=== PATIENT | female | born 2000 | race Caucasian/White ===

== ENCOUNTER 2022-09-03 06:25 | Emergency (ER) | payer BC, SELFPAY ==
[2022-09-03] VITALS (11 sets, daily range): BP systolic 118–139; BP diastolic 72–88; PULSE 54–79; RESP 18; TEMP 36.1; O2SAT 94–100
--- NOTE | 2022-09-03 06:53 | ED.GENADULT ---
HPI - General Adult General Chief complaint: Nausea/Vomiting Stated complaint: vomiting blood Time Seen by Provider: 09/03/22 06:51 History of Present Illness HPI narrative: vomiting blood all night. also pooping blood. reported having hemorrhoids last month. 22-year-old young woman here with concern of vomiting blood. Beginning yesterday evening started to vomit and this has continued to this morning. She is also concerned about blood well stooling. She says she has got some hemorrhoids. Some Dr. ?stuck his thumb up there? and told me I had a couple hemorrhoids. On like she does not have much information. She has however been struggling with constipation. Bowel movements have been painful. No treatments other than was given a cream at some point. Is unaware of any fissure. Is not really having abdominal pain. Later does admit to some low abdominal cramping at discomfort on urination when asked. Otherwise more of a burning sensation in the epigastrium. Has not had a fever. Other information obtained later when questioning if she is fearful that maybe this initial foamy vomiting meant that she was going to ; like in the movies. And then it seemed more dark. Mom arrives later in request support and to try to clarify circumstances. She points out history of chemical dependency issues which upsets matter line. Abdomen does endorse vaping nicotine and has not smoked marijuana she says for 3 days. Noted past medical history otherwise. Related Data Home Medications Medication Instructions Recorded Confirmed gabapentin 400 mg capsule 800 mg PO QPM 07/28/22 07/28/22 lamotrigine 25 mg tablet 25 mg PO DAILY 07/28/22 07/28/22 sertraline 50 mg tablet 50 mg PO DAILY 07/28/22 07/28/22 Previous Rx's Medication Instructions Recorded ciprofloxacin HCl 500 mg tablet 500 mg PO BID 6 days #12 tabs 09/03/22 ondansetron 4 mg disintegrating 4 mg PO Q4-6H PRN nausea and 09/03/22 tablet vomiting #12 tabs Allergies Allergy/AdvReac Type Severity Reaction Status Date / Time oxycodone Allergy Intermediate Verified 07/28/22 13:14 Review of Systems Status of ROS: Reports: 6 or more systems reviewed and unremarkable except as noted in History and below PFSH PFSH Social History Smoking Status: Current every day smoker Do you use any of these nicotine containing products: Vaping Products Second hand tobacco smoke exposure: No How often do you have a drink containing alcohol: 2-3 times a week How many standard drinks containing alcohol do you have on a typical day: 5 or 6 How often do you have six or more drinks on one occasion: Weekly AUDIT-C Alcohol total score: 8 Non-prescribed substance use: marijuana (any form) and crack/cocaine Non-prescribed substance use details: has cd issues. has been to [email or web address]. service: No Exam Narrative: Exam Narrative: Arrived seem Lynnette up with an emesis bag. She is pacing. Flushed. Skin is little clammy. Moving quickly. Seems uncomfortable little anxious. There are numerous line tattoos on her person. Beers to be breathing easily. No stridor. Oropharynx is moist. CV in a regular rate and rhythm. Abdomen is soft mildly uncomfortable in the epigastric area to palpation. No flank pain. Normoactive bowel sounds. well-perfused peripherally. Const: Vital Signs, click to edit/add: Vital Signs - 24 hr 09/03/22 06:31 09/03/22 07:58 09/03/22 08:01 Temperature 97.0 F L Pulse Rate 73 70 Pulse Rate [Left P ulse Oximeter] 79 Respiratory Rate 18 Blood Pressure Blood Pressure [Ri ght Upper Arm] 139/86 Pulse Oximetry 98 97 94 Oxygen Delivery Me thod Room Air 09/03/22 08:02 09/03/22 08:15 09/03/22 08:30 Temperature Pulse Rate 68 62 68 Pulse Rate [Left P ulse Oximeter] Respiratory Rate Blood Pressure 129/72 Blood Pressure [Ri ght Upper Arm] Pulse Oximetry 100 98 99 Oxygen Delivery Me thod 09/03/22 08:31 Temperature Pulse Rate Pulse Rate [Left P ulse Oximeter] Respiratory Rate Blood Pressure 118/88 Blood Pressure [Ri ght Upper Arm] Pulse Oximetry Oxygen Delivery Me thod Documenting provider has reviewed patient's vital signs: yes Course Vital Signs Vital signs: Initial Vital Signs Temperature 97.0 F L 09/03/22 06:31 Temperature Source Temporal Artery Scan 09/03/22 06:31 Pulse Rate 79 09/03/22 06:31 Pulse Rhythm Regular 09/03/22 06:31 Respiratory Rate 18 09/03/22 06:31 Blood Pressure 139/86 09/03/22 06:31 Blood Pressure Mean 103 09/03/22 06:31 Blood Pressure Position Sitting 09/03/22 06:31 Pulse Oximetry 98 09/03/22 06:31 Oxygen Delivery Method Room Air 09/03/22 06:31 Vital Signs Temperature 97.0 F L 09/03/22 06:31 Pulse Rate 79 09/03/22 06:31 Respiratory Rate 18 09/03/22 06:31 Blood Pressure 139/86 09/03/22 06:31 Pulse Oximetry 98 09/03/22 06:31 Oxygen Delivery Method Room Air 09/03/22 06:31 Temperature 97.0 F L 09/03/22 06:31 Pulse Rate 68 09/03/22 08:30 Respiratory Rate 18 09/03/22 06:31 Blood Pressure 118/88 09/03/22 08:31 Pulse Oximetry 99 09/03/22 08:30 Oxygen Delivery Method Room Air 09/03/22 06:31 Medical Decision Making MDM Narrative Medical decision making narrative: Certainly may have a gastritis. I do not see obvious or tanika blood though darkening indicate some mild hematemesis. Ob testing this. Belly is rather free of pain. Return to report urine findings and mom has arrived looking for answers as to what is going on. Into the room seeing Erika crying at this point. She is initially reluctant to the divulge with going on apparently some conflict with her father. I did gastroccult a vomitus. It is slightly positive for blood. Given degree of vomiting though I am not necessarily surprised. I did return to discuss the urinalysis which looks positive. Apparently has had frequent urinary tract infections maybe is recent also has 1 month ago. Does not receive regular primary care. All temp to find old culture results. Able to find reference in record of clinic that within the last 2 diagnosed urinary tract infections did receive Keflex for E coli culture positive. There were intermediate sensitivities also reference but full panel not available for me to read. Does not sound as though she had to change antibiotics though to clear it. Though I have some question whether what appears to be a current cystitis/urinary tract infection has actually been going on for some time. Did receive Rocephin and IV hydration as noted above. Overall is feeling markedly improved. Revisiting the issue of rectal bleeding which I think is likely some rectal passage bleeding either from hemorrhoidal or fissured tissue, she would prefer that not be evaluated today. Is mildly hypokalemic here today but I suspect that this will rebound once vomiting has stopped. Unclear to me if the vomiting is related to this urinary tract infection though I doubt it. I think there few separate issues that of constipation without bowel obstruction, gastritis, cystitis. Treating a little bit more aggressively though with antibiotics as we were possibly heading toward pyelonephritis. Ciprofloxacin on discharge. See patient discharge plan Lab Data Lab results reviewed: Yes I reviewed the patient's lab results Labs: Lab Results 09/03/22 09/03/22 09/03/22 Range/Units 06:45 07:15 07:30 WBC 14.40 H (4.50-11.00) K/uL RBC 5.01 (4.00-5.20) m/uL Hgb 15.2 (12.0-16.0) gm/dL Hct 44.6 (33.0-51.0) % MCV 89 (80-100) fL MCH 30 (26-34) pg MCHC 34 (32-36) gm/dL RDW Coeff of Martha 12.8 (11.5-15.5) % Plt Count 309 (140-440) K/uL Neut % (Auto) 75.5 H (42.0-72.0) % Lymph % (Auto) 17.4 L (20-44) % [place] % (Auto) 6.4 (0.0-11.0) % Eos % (Auto) 0.2 (0.0-7.0) % Baso % (Auto) 0.3 (0.0-3.0) % Neut # (Auto) 10.90 H (1.7-7.0) K/uL Lymph # (Auto) 2.50 (0.90-2.90) K/uL [place] # (Auto) 0.90 (0.00-0.90) K/UL Eos # (Auto) 0.00 (0.00-0.50) K/uL Baso # (Auto) 0.00 (0.00-0.30) K/uL Abs Immat Gran (auto) 0.00 (0.00-0.30) K/uL Imm/Tot Granulo (auto) 0.2 % Sodium 138 (135-149) mmol/L Potassium 3.2 L (3.6-5.1) mmol/L Chloride 102 (96-114) mmol/L Carbon Dioxide 23 (20-32) mmol/L BUN 13 (5-24) mg/dL Creatinine 0.8 (0.5-1.5) mg/dL Estimated GFR 106 ml/min Glucose 105 (60-115) mg/dL Calcium 9.8 (8.4-10.6) mg/dL Total Bilirubin 0.7 (0.1-1.5) mg/dL Direct Bilirubin 0.1 (0.0-0.5) mg/dL AST 34 (12-35) U/L ALT 26 (4-35) U/L Alkaline Phosphatase 72 (40-150) U/L C-Reactive Protein < 0.5 L (0.5-1.0) mg/dL Total Protein 8.4 H (6.0-8.3) g/dL Albumin 4.9 (3.3-5.0) g/dL Lipase 114 (23-300) U/L Urine Color [place] A (Yellow) Urine Appearance Slightly Cloudy A (Clear) Urine pH 6.0 (5.0-8.5) Ur Specific [place] >= 1.030 (1.000-1.030) Urine Protein 2+ A (Negative) Urine Glucose (UA) Negative (Negative) Urine Ketones Trace A (Negative) Urine Blood 3+ A (Negative) Urine Nitrite Negative (Negative) Urine Bilirubin Negative (Negative) Urine Urobilinogen 0.2 (0.2-1.0) Ur Leukocyte Esterase 3+ A (Negative) Urine RBC 10-25 A (0-2) Urine WBC 10-25 A (0-5) Ur Squamous Epith Cells Moderate A (None-Few) Urine Bacteria Few A (None) SARS-CoV-2 (PCR) Negative SARS-CoV-2 (Negative) Influenza Type A (PCR) Negative PCR FLU A (Negative) Influenza Type B (PCR) Negative PCR FLU B (Negative) Discharge Plan Discharge Clinical Impression: Gastritis, BRBPR (bright red blood per rectum), Cystitis, Constipation, Dehydration, Hypokalemia Patient Disposition: Home w/ Parent or Adult Condition: Improved Additional Instructions: Important to stay well hydrated in general. Usually 2-3 L of water intake daily would be a good thing. Especially while you are experiencing a urinary tract infection I would try to avoid sugar/sweetened liquids. To clear up your bowels, consider placement of a suppository overnight to soften things from below. Normally I would recommend an enema and repeating in an hour if no good result. Also drinking a bottle of magnesium citrate repeating next day if no good result. You do have MiraLax available. In the short term you could take 3 doses, each in at least 8 oz of liquid, even by noon. Adjust then this dosing to stool consistency. I would continue intentional stool softening over the course of 2 weeks. You were saying there are laxatives and there are stool softeners. I would consider all the treatments as mentioned above to be more in the category of stool softeners. I agree that it is a good idea to establish a primary care provider. A urine culture will be pending here. If antibiotics we gave were not ideal/correct, you will be receiving a call. You received Rocephin in your IV. Will be sending and ciprofloxacin as an antibiotic and Zofran for nausea. Slow advance of diet over the next 24-36 hours. Maybe soup broths, toast, rice, crackers. Prescriptions: New ciprofloxacin HCl 500 mg tablet 500 mg PO BID 6 Days Qty: 12 0RF ondansetron 4 mg tablet,disintegrating 4 mg PO Q4-6H PRN (Reason: nausea and vomiting) Qty: 12 0RF No Action gabapentin 400 mg capsule 800 mg PO QPM lamotrigine 25 mg tablet 25 mg PO DAILY sertraline 50 mg tablet 50 mg PO DAILY Follow Up/Referrals: Provider,Not a Local [Primary Care Provider] - Stand Alone Forms: [employer] Info Instructions
--- NOTE | 2022-09-03 07:25 | ED.NURSE ---
was vomiting -making herself gag over the sink. some watery, dark red type gastric secretions. denies pain.is anxious and nervous. has been texting father to come to ed for her.
[2022-09-03] MEDS: 0.9 % SODIUM CHLORIDE 1000 ml 1,000 ML IV (07:33)
[2022-09-03] MEDS: ONDANSETRON 2 MG/ML inj 4 MG IVP (07:38)
[2022-09-03 07:44] LABS: Appearance Urine Slightly Cloudy (Clear); Bilirubin Urine Negative (Negative); Blood Urine 3+ (Negative); Color Urine Amber (Yellow); Glucose Urine Negative (Negative); Ketones Urine Trace (Negative); Leukocyte Esterase Urine 3+ (Negative); Nitrite Urine Negative (Negative); Protein Urine 2+ (Negative); Specific Gravity Urine >= 1.030 (1.000-1.030); Urobilinogen Urine 0.2 (0.2-1.0)
[2022-09-03 07:46] LABS: Basophils Percent Auto 0.3 % (0.0-3.0); Eosinophils Percent Auto 0.2 % (0.0-7.0); Hematocrit 44.6 % (33.0-51.0); Hemoglobin* 15.2 gm/dL (12.0-16.0); Immature Granulocytes Pct Auto 0.2 %; Lymphocytes Percent Auto 17.4 % (20-44); Mean Corpuscular HGB Conc 34 gm/dL (32-36); Mean Corpuscular Hemoglobin 30 pg (26-34); Mean Corpuscular Volume 89 fL (80-100); Monocytes Percent Auto 6.4 % (0.0-11.0); Neutrophils Percent Auto 75.5 % (42.0-72.0); Platelet Count* 309 K/uL (140-440); RDW Coefficient of Variation % 12.8 % (11.5-15.5); Red Blood Count 5.01 m/uL (4.00-5.20)
[2022-09-03 07:53] LABS: Slide Review Reflex No
[2022-09-03 07:53] LABS: Bacteria Urine Few; Squamous Epithelial Cell Urine Moderate (None-Few)
[2022-09-03 08:03] LABS: PCR FLU A Negative PCR FLU A (Negative); PCR FLU B Negative PCR FLU B (Negative)
[2022-09-03 08:03] LABS: Albumin* 4.9 g/dL (3.3-5.0); Chloride* 102 mmol/L (96-114); Sodium* 138 mmol/L (135-149)
[2022-09-03 08:04] LABS: Potassium* 3.2 mmol/L (3.6-5.1)
[2022-09-03 08:05] LABS: SARS PCR* Negative SARS-CoV-2 (Negative)
[2022-09-03 08:05] LABS: Creatinine* 0.8 mg/dL (0.5-1.5); Estimated Glomerular Filt Rate 106 ml/min
[2022-09-03 08:06] LABS: Alkaline Phosphatase* 72 U/L (40-150); Aspartate Amino Transferase* 34 U/L (12-35); Bilirubin Direct* 0.1 mg/dL (0.0-0.5); Bilirubin Total* 0.7 mg/dL (0.1-1.5); Blood Urea Nitrogen* 13 mg/dL (5-24); Carbon Dioxide* 23 mmol/L (20-32); Glucose* 105 mg/dL (60-115); Lipase* 114 U/L (23-300); Total Protein* 8.4 g/dL (6.0-8.3)
[2022-09-03 08:07] LABS: Alanine Aminotransferase* 26 U/L (4-35); Calcium* 9.8 mg/dL (8.4-10.6)
[2022-09-03 08:18] LABS: C Reactive Protein* < 0.5 mg/dL (0.5-1.0)
--- NOTE | 2022-09-03 09:10 | ED.NURSE ---
did not want rectal exam per dr guardado. did state that she has constipation and believes the rectal bleeding was from a hemorrhoid. mother was at the bedside. has been texting and is quite animated.
[2022-09-03] MEDS: cefTRIAXone 1 GM in 0.9 % SODIUM CHLORIDE Mini-bag 100 ML IVPB (09:22)
== END 2022-09-03 10:10 | disposition home or self-care (01) ==
PROVIDERS: Emergency Provider Family Medicine
DX: K29.70 Gastritis, unspecified, without bleeding (principal); K62.5 Hemorrhage of anus and rectum; K59.00 Constipation, unspecified; E87.6 Hypokalemia
CPT/HCPCS: 36415; 80048; 80076; 81001; 83690; 85025; 86140; 87086; 87631; 96365; 96375; 99284; J0696; J2405; J7030

== ENCOUNTER 2023-06-09 02:36 | Emergency (ER) | payer BC, SELFPAY ==
[2023-06-09 02:41] VITALS: BP 137/91; PULSE 50; RESP 16; TEMP 36.6; O2SAT 96; BMI 36.9
--- NOTE | 2023-06-09 02:51 | ED.GENADULT ---
HPI - General Adult General Chief complaint: Abdominal Pain Stated complaint: lower abdominal pain Time Seen by Provider: 06/09/23 02:51 History of Present Illness HPI narrative: Pt states she has been having pelvic pain for two weeks. gradually worsening. pt had nexplanon removed 6 weeks ago. Pain is bilateral, rates 8/10, tylenol last was yesterday. seen at urgent care yesterday, urine was negative, was treated for UTI 23-year-old woman presenting to the emergency department with complaint of increasing and sharp pelvic pain over the last couple of weeks. Unknown when last menses; has been a long-time. Has not been spotting. Did have her Nexplanon removed 6 weeks ago. It sounds as though she is wondering whether not might have ovarian cyst. Has not been having dysuria. No fever. Did take Tylenol for pain. Was evaluated at urgent care yesterday with negative testing per her report and reports that was thought to have a urinary tract infection but the results of the urinalysis are not available or were not explained to her nor was an antibiotic ultimately called in. Denies constipation or diarrhea. No fever. She has been feeling like she is looking more bloated lately, like she is she says. Has been having some aching in her low back. Thinking that maybe she was about to have her period, she did stock up on menstrual-related supplies. Related Data Home Medications Medication Instructions Recorded Confirmed gabapentin 400 mg capsule 800 mg PO QPM 07/28/22 07/28/22 lamotrigine 25 mg tablet 25 mg PO DAILY 07/28/22 07/28/22 sertraline 50 mg tablet 50 mg PO DAILY 07/28/22 07/28/22 Previous Rx's Medication Instructions Recorded ciprofloxacin HCl 500 mg tablet 500 mg PO BID 6 days #12 tabs 09/03/22 ondansetron 4 mg disintegrating 4 mg PO Q4-6H PRN nausea and 09/03/22 tablet vomiting #12 tabs Allergies Allergy/AdvReac Type Severity Reaction Status Date / Time oxycodone Allergy Intermediate Verified 07/28/22 13:14 Review of Systems Status of ROS: Reports: 6 or more systems reviewed and unremarkable except as noted in History and below PFSH PFS Social History Smoking Status: Current every day smoker Do you use any of these nicotine containing products: Vaping Products Second hand tobacco smoke exposure: No How often do you have a drink containing alcohol: 2-3 times a week How many standard drinks containing alcohol do you have on a typical day: 5 or 6 How often do you have six or more drinks on one occasion: Weekly AUDIT-C Alcohol total score: 8 Non-prescribed substance use: marijuana (any form) and crack/cocaine Non-prescribed substance use details: has cd issues. has been to [employer]. service: No Exam Narrative: Exam Narrative: Pleasant. Of good energy. Breathing easily. Skin is warm and dry. Numerous tattoos. Heart in lower rate regular rhythm. Lungs are clear. Abdomen with normoactive bowel sounds is soft. No peritoneal signs. She is otherwise though quite tender to palpation right adnexal area and central suprapubic area more so than left but is tender across the pelvis. The somewhat sore also generally across the low back. Not discretely tender in the SI joints. Not hypesthetic in response. Extremities without edema. Const: Vital Signs, click to edit/add: Vital Signs - 24 hr 06/09/23 02:41 06/09/23 05:25 Temperature 97.8 F 98.0 F Pulse Rate [Pulse Oximeter] 50 L 49 L Respiratory Rate 16 18 Blood Pressure [Ri ght Upper Arm] 137/91 H 131/82 Pulse Oximetry 96 97 Oxygen Delivery Me thod Room Air Room Air Documenting provider has reviewed patient's vital signs: yes Course Vital Signs Vital signs: Initial Vital Signs Temperature 97.8 F 06/09/23 02:41 Temperature Source Temporal Artery Scan 06/09/23 02:41 Pulse Rate 50 L 06/09/23 02:41 Pulse Rhythm Regular 06/09/23 02:41 Respiratory Rate 16 06/09/23 02:41 Blood Pressure 137/91 H 06/09/23 02:41 Blood Pressure Mean 106 H 06/09/23 02:41 Blood Pressure Position Sitting 06/09/23 02:41 Pulse Oximetry 96 06/09/23 02:41 Oxygen Delivery Method Room Air 06/09/23 02:41 Vital Signs Temperature 97.8 F 06/09/23 02:41 Pulse Rate 50 L 06/09/23 02:41 Respiratory Rate 16 06/09/23 02:41 Blood Pressure 137/91 H 06/09/23 02:41 Pulse Oximetry 96 06/09/23 02:41 Oxygen Delivery Method Room Air 06/09/23 02:41 Temperature 98.0 F 06/09/23 05:25 Pulse Rate 49 L 06/09/23 05:25 Respiratory Rate 18 06/09/23 05:25 Blood Pressure 131/82 06/09/23 05:25 Pulse Oximetry 97 06/09/23 05:25 Oxygen Delivery Method Room Air 06/09/23 05:25 Medications Administered Medications: Discontinued Medications Generic Name Dose Route Start Last Admin Trade Name Parminder PRN Reason Stop Dose Admin Ibuprofen 600 mg 06/09/23 04:26 06/09/23 04:31 Ibuprofen 200 Mg Tablet PO 06/09/23 04:27 600 mg ONCE ONE Administration Medical Decision Making MDM Narrative Medical decision making narrative: Would rescreen initially with urinalysis. Two weeks seems a little long for premenstrual discomfort but possible and because it has been years since had a period. May certainly have leaking ovarian cyst. Otherwise differential would include constipation. Pain not to the degree I would expect with torsion and of excessively long duration for this. Agreed to check urinalysis again. Last urinalysis here was more convincing than the less suspicious findings here today but culture negative. Would want more significant findings, and symptom, I think for further treatment. Confirmed testing negative. Check labs for further red flags for other imaging. Requested ibuprofen for pain. Improved on reassessment. Labs are otherwise reassuring. Urinalysis with mild findings but without clear symptoms of UTI can consistent more with what she has experienced in the past, I would defer treatment. Would offer ultrasound for further assessment. She would like to stay for this yet. Has managed to sleep. Prior to going to ultrasound she has had sudden sharp pain at the left adnexal area and then has started spotting. Discussed findings with tower truck driver. Unremarkable pelvic ultrasound with good blood flow to both ovaries no cyst. Pending Radiology over-read. Reportedly since began spotting pain has lessened significantly. Expresses some embarrassment that she may have come here for period-related pain. See patient discharge plan for further discussion Lab Data Lab results reviewed: Yes I reviewed the patient's lab results Labs: Lab Results 06/09/23 06/09/23 Range/Units 04:00 04:40 WBC 8.83 (4.50-11.00) K/uL RBC 4.12 (4.00-5.20) m/uL Hgb 13.0 (12.0-16.0) gm/dL Hct 38.1 (33.0-51.0) % MCV 93 (80-100) fL MCH 32 (26-34) pg MCHC 34 (32-36) gm/dL RDW Coeff of Martha 12.6 (11.5-15.5) % Plt Count 252 (140-440) K/uL Neut % (Auto) 61.8 (42.0-72.0) % Lymph % (Auto) 28.2 (20-44) % [place] % (Auto) 8.0 (0.0-11.0) % Eos % (Auto) 1.5 (0.0-7.0) % Baso % (Auto) 0.3 (0.0-3.0) % Neut # (Auto) 5.45 (1.7-7.0) K/uL Lymph # (Auto) 2.49 (0.90-2.90) K/uL [place] # (Auto) 0.70 (0.00-0.90) K/UL Eos # (Auto) 0.13 (0.00-0.50) K/uL Baso # (Auto) 0.03 (0.00-0.30) K/uL Abs Immat Gran (auto) 0.02 (0.00-0.30) K/uL Imm/Tot Granulo (auto) 0.2 % Sodium 136 (135-149) mmol/L Potassium 3.5 L (3.6-5.1) mmol/L Chloride 108 (96-114) mmol/L Carbon Dioxide 24 (20-32) mmol/L Anion Gap 4 L (7-15) mEq/L BUN 17 (5-24) mg/dL Creatinine 0.7 (0.5-1.5) mg/dL Estimated Creat Clear 107.01 Estimated GFR 124 ml/min Glucose 98 (60-115) mg/dL Calcium 9.4 (8.4-10.6) mg/dL C-Reactive Protein < 0.5 L (0.5-1.0) mg/dL HCG, Quant Cancelled Urine Color Yellow (Yellow) Urine Appearance Cloudy A (Clear) Urine pH 6.0 (5.0-8.5) Ur Specific [place] 1.025 (1.000-1.030) Urine Protein Negative (Negative) Urine Glucose (UA) Negative (Negative) Urine Ketones Negative (Negative) Urine Blood 2+ A (Negative) Urine Nitrite Negative (Negative) Urine Bilirubin Negative (Negative) Urine Urobilinogen 0.2 (0.2-1.0) Ur Leukocyte Esterase 1+ A (Negative) Urine RBC 0-2 (0-2) Urine WBC 5-10 A (0-5) Ur Squamous Epith Cells Moderate A (None-Few) Urine Bacteria Few A (None) Urine HCG, Qual Negative (Negative) Lab Acknowledgement Test Added Discharge Plan Discharge Clinical Impression: Pelvic pain Patient Disposition: Home, Self-Care Condition: Improved Additional Instructions: I think your suspicions are likely corrected that your pain might be related to pending menses. Can take up to 800 mg of ibuprofen per dose or up to 1000 mg of acetaminophen per dose. Alternative to the ibuprofen might be up to 500 mg naproxen 2 times daily. Urine culture will be pending here and if you are having symptoms more consistent with urinary tract infection and this culture is significant, would consider treatment at that time. We will contact you if need to discuss further. I will also call you if Radiology has anything more more significant to say about the ultrasound today. Prescriptions: No Action gabapentin 400 mg capsule 800 mg PO QPM lamotrigine 25 mg tablet 25 mg PO DAILY sertraline 50 mg tablet 50 mg PO DAILY ciprofloxacin HCl 500 mg tablet 500 mg PO BID 6 Days Qty: 12 0RF ondansetron 4 mg tablet,disintegrating 4 mg PO Q4-6H PRN (Reason: nausea and vomiting) Qty: 12 0RF Follow Up/Referrals: Provider,Not a Local [Primary Care Provider] - Stand Alone Forms: [employer] Info Instructions
--- NOTE | 2023-06-09 03:02 | PC.NURSE ---
pt states she was prescribed an antibiotic at urgent care yesterday for UTI, pt has not picked up or started Rx yet.
--- OUTSIDE RECORDS SUMMARY | 2023-06-09 03:51 | XMS_ITS | Encounter Summary ---
Author Name Unknown Organization [facility] Address [address] [place] [address] Care Team Providers Care Custodial Worker Name Role Phone Richard Ramachandran APRN, [employer]ER Primary Care Provide r Reason for Visit * Reason Comments Refill Encounter Details Date Type Department Care Team (Late st Contact Info) Description 05/29/2023 Refill [facility] [address] [place] [address] Amelia Britton MD [address] [place] [address] Refill Social History Tobacco Use Types Packs/Day Years Used Date Smoking Tobacco: Former Cigarettes 0.3 1 Smokeless Tobacco: Never Comments:juuls Alcohol Use Standard Drinks/Week Comments Not Currently 0 (1 standard drink = 0.6 oz pur e alcohol) Sex and Gender Information Value Date Recorded Sex Assigned at Not on file Gender Identity Not on file Sexual Orientation Not on file documented as of this encounter Nursing Notes * Tameka Rousseau RN - 05/30/2023 9:49 AM CDT Refill for gabapentin neurontin 400 mg caps authorized per medication protocol. Requested within appropriate time frame. Follow up appointment scheduled 07/02/23. * Sweta Garsia - 05/30/2023 9:18 AM CDT Pt is out of Gabapentin now. Asked if Rx could be sent JAYLON today - to [facility]. documented in this encounter Plan of Treatment Upcoming Encounters Date Type Department Care Team (Late st Contact Info) Description 07/02/2023 8:05 AM CDT Telemedicine [facility] [address] [place] [address] Amelia Britton MD [address] [place] [address] documented as of this encounter Visit Diagnoses Diagnosis ALBERTO (generalized anxiety disorder) ([facility]) Generalized anxiety disorder documented in this encounter Care Teams Custodial Worker Relationship Specialty Start Date End Date Richard Ramachandran APRN, [employer] SEALER [address] [place] [address] PCP - General Nurse Practitioner 05/10/23 documented as of this encounter
--- OUTSIDE RECORDS SUMMARY | 2023-06-09 03:51 | XMS_ITS | Clinical Summary ---
Author Name Unknown Organization [employer] Address [place], [place] [address] Care Team Providers Care Auto Parts Manager Name Role Phone [facility] Primary Care Provider Unavailabl e Clinic, No Pcp Or Unavailable Unavailable Allergies Active Allergy Reactions Criticality Noted Date Comments Bupropion Other - Describe In Comment Field 12/15/2018 Suicidal thoughts. Lamotrigine Hives High 03/04/2015 Oxycodone Nausea And Vomiting 02/10/2015 Medications Medication Sig Dispensed Refills Start Date End Date Status ARIPiprazole (ABILIFY) 10 mg tablet 11/03/2021 Active clindamycin 1% (CLEOCIN-T) 1 % lotion APPLY TOPICALLY TO THE AFFECTED AREA DAILY 10/26/2021 Active gabapentin (NEURONTIN) 400 mg capsule Take 400 mg by mouth three times daily. 10/28/2021 Active sertraline (ZOLOFT) 50 mg tablet 11/03/2021 Active traZODone (DESYREL) 50 mg tablet Take 50 mg by mouth. 07/16/2021 Active tretinoin 0.05 % 0.05 % cream 11/05/2021 Active Encounters Date Type Department Care Team Description 06/08/2023 4:50 PM CDT Office Visit [facility] [place] [address] [place] [phone] Jessie Castillo PA Cramping 06/08/2023 Travel from Last 3 Months Social History Tobacco Use Types Packs/Day Years Used Date Smoking Tobacco: Former Cigarettes Smokeless Tobacco: Never Tobacco Cessation:Counseling Given: Not Answered Sex and Gender Information Value Date Recorded Sex Assigned at Not on file Gender Identity Not on file Sexual Orientation Not on file Obstetrics History Last Filed Vital Signs Vital Sign Reading Time Taken Comments Blood Pressure 121/57 06/08/2023 4:39 PM CDT Pulse 83 06/08/2023 4:39 PM CDT Temperature 36.7 ??C (98.1 ??F) 06/08/2023 4:41 PM CD T Respiratory Rate 24 06/08/2023 4:39 PM CDT Oxygen Saturation 97% 06/08/2023 4:39 PM CDT Inhaled Oxygen Concentration - - Weight 98.9 kg (218 lb) 06/08/2023 4:39 PM CDT Height 162.6 cm (5' 4) 11/11/2021 4:30 PM CDT Body Mass Index 37.42 11/11/2021 4:30 PM CDT Plan of Treatment Health Maintenance Due Date Last Done Comments Tdap 2010 Depression screening for age 12+ 2011 HIV for age 15-65 2014 HPV series for age 9-26 (1 - 3-dose series) 2014 Chlamydia for age 16-24 2015 06/08/2023 BMI (ht and wt on same day) for age 18+ 2017 Hepatitis C screening for ag e 18-79 2017 Tetanus booster 2019 Pap test for age 21-65 2020 COVID-19 vaccine series (2022- season) 2022 07/02/2020, 06/09/2020 Influenza for age 9-49 10/20/2023 Pneumococcal series for age 6-64 Aged Out No longer eligible b ased on patient's age to complete this topic Procedures Procedure Name Priority Date/Time Associated Diagnosis Comments URINALYSIS MICROSCOPIC Routine 06/08/2023 4:49 PM CDT Abdominal pain, generalized TRICHOMONAS, EMMANUEL, AND BACTERIAL VAGINOSIS BY MEGAN Routine 06/08/2023 4:49 PM CDT Abdominal pain, generalized GC CHLAMYDIA TRACH PROBE Routine 06/08/2023 4:49 PM CDT Abdominal pain, generalized URINE Routine 06/08/2023 4:49 PM CDT Abdominal pain, generalized UA W/ SEDIMENT EXAM REFLEXED PER CRITERIA Routine 06/08/2023 4:49 PM CDT Abdominal pain, generalized from Last 3 Months Results * TRICHOMONAS, EMMANUEL, AND BACTERIAL VAGINOSIS BY MEGAN (06/08/2023 4:49 PM CDT) EMMANUEL SPECIES Negative Negative 2:19 AM CDT [facility] EMMANUEL GLABRATA Negative Negative 06/09/2023 2:19 AM CDT [facility] TRICHOMONAS VVA Negative Negative 2:19 AM CDT [facility] BACTERIAL VAGINOSIS Negative Negative 06/09/2023 2:19 AM CDT [facility] Other VAGINAL SWAB / Unknown Non-Blood / Unknown 06/08/2023 4:49 PM CDT 06/08/2023 4:49 PM CDT David Allen MICROBIOLOGY [facility] [address] [place] [address], [place] * URINALYSIS MICROSCOPIC (06/08/2023 4:49 PM CDT) RBC 0-2 0-2, None Seen /HPF 06/08/2023 4:56 PM CDT [facility] WBC 3-5 0-2, 3-5, None Seen /HPF 06/08/2023 4:56 PM CDT [facility] BACTERIA Few None Seen, Rare, Few Bacteria/H PF 06/08/2023 4:56 PM CDT [facility] EPITHELIAL CELLS Few None Seen, Few Epi/HPF 06/08/2023 4:56 PM CDT [facility] Urine URINE SPECIMEN / Unknown Non-Blood / Unknown 06/08/2023 4:49 PM CDT 06/08/2023 4:49 PM CDT David Allen URINE Performing Organization Address [facility]/ZIP Co de Phone Number [facility] [address] [place] [address], [place] * (ABNORMAL) GC & CHLAMYDIA DNA PCR [[id number]] (06/08/2023 4:49 PM CDT) CHLAMYDIA PROBE Negative 3:00 AM CDT [facility] N GONORRHOEAE PROBE Positive(A) 06/09/2023 3:00 AM CDT [facility] Other VAGINAL SWAB / Unknown Non-Blood / Unknown 06/08/2023 4:49 PM CDT 06/08/2023 4:49 PM CDT David Allen MICROBIOLOGY Performing Organization Address City/[facility]/ZIP Co de Phone Number [facility] [address] [place] [address], [place] * (ABNORMAL) UA W/ SEDIMENT EXAM REFLEXED PER CRITERIA (06/08/2023 4:49 PM CDT) COLOR Yellow Yellow Color 06/08/2023 4:56 PM CDT [facility] CLARITY Clear Clear Clarity 06/08/2023 4:56 PM CDT [facility] SPECIFIC GRAVITY,URINE 1.015 1.010, 1.015, 1.020, 1.025 06/08/2023 4:56 PM CDT [facility] PH,URINE 5.5 6.0, 7.0, 8.0, 5.5, 6.5, 7.5, 8.5 06/08/2023 4:56 PM CDT [facility] UROBILINOGEN,Q UALITATIVE Normal Normal EU/dl 06/08/2023 4:56 PM CDT [facility] PROTEIN, URINE Negative Negative mg/dL 06/08/2023 4:56 PM CDT [facility] GLUCOSE, URINE Negative Negative mg/dL 06/08/2023 4:56 PM CDT [facility] KETONES,URINE Negative Negative mg/dL 06/08/2023 4:56 PM CDT [facility] BILIRUBIN,URIN E Negative Negative 06/08/2023 4:56 PM CDT [facility] OCCULT BLOOD,URINE Small(A) Negative 06/08/2023 4:56 PM CDT [facility] NITRITE Negative Negative 06/08/2023 4:56 PM CDT [facility] LEUKOCYTE ESTERASE Trace(A) Negative 06/08/2023 4:56 PM CDT [facility] Urine URINE SPECIMEN / Unknown Non-Blood / Unknown 06/08/2023 4:49 PM CDT 06/08/2023 4:49 PM CDT David Herrera Le PA URINE Performing Organization Address City/[facility]/ZIP Co de Phone Number [facility] [address] [place] [address], * URINE (06/08/2023 4:49 PM CDT) ,URIN E Negative Negative 06/08/2023 4:56 PM CDT [facility] Urine URINE SPECIMEN / Unknown Non-Blood / Unknown 06/08/2023 4:49 PM CDT 06/08/2023 4:49 PM CDT David Herrera Le PA URINE Performing Organization Address City/[facility]/ZIP Co de Phone Number [facility] [address] [place] [address], from Last 3 Months Care Teams Auto Parts Manager Relationship Specialty Start Date End Date [facility] PCP - General 06/08/23 Clinic, No Pcp Or . 06/08/23
--- OUTSIDE RECORDS SUMMARY | 2023-06-09 03:51 | XMS_ITS | Encounter Summary ---
Author Name Unknown Organization [facility] Address [address] [place] [address] Care Team Providers Care Recreation Worker Name Role Phone Richard Ramachandran APRN, CLAY DIGGER Primary Care Provide r Reason for Visit * Reason Comments Dysuria Encounter Details Date Type Department Care Team (Late st Contact Info) Description 05/24/2023 8:00 AM CDT Telemedicine Virtual Urgent Care [address] [place] [address] Nemo Sharma PA-C [address] [place] [id number] Dysuria (Primary Dx) Social History Tobacco Use Types Packs/Day Years [...] on file documented as of this encounter Patient Instructions * Patient Instructions* Nemo Sharma PA-C - 05/24/2023 8:00 AM CDT Please go to a [facility] lab to do the urine tests. We will notify you with the results and next steps. You can start taking the Bactrim. Push fluids, wipe from front to back, urinate after sexual intercourse or sitting in a body of water, urinate when you get the urge, urinate before bed You may take [id number] acetaminophen, ibuprofen, azo as needed for discomfort. Do not take azo for more than 2 days so that you may monitor for improvement of symptoms. If you are not improving in 1-2 days, have new or worsening symptoms, or are not well by the end ofyour treatment course please follow-up for an in-person exam Present to the local urgent care or emergency department if you develop a fever, abdominal pain, back pain, nausea or vomiting, or inability to or difficulty urinating. documented in this encounter Progress Notes * Nemo Sharma PA-C - 05/24/2023 8:00 AM CDT Virtual Urgent Care Visit CC: Chief Complaint Patient presents with Dysuria SUBJECTIVE: Erika Snowden is a 23 y.o. female who I speak with via video for 1-1/2 week history of urinary frequency, dysuria, low back pain. Seems to be worsening. Denies fever and chills, abnormal vaginal discharge, concern for STIs. Review of Systems Complete Review of Systems is negative, unless noted in HPI Allergies Allergen Reactions Lamotrigine Hives Oxycodone Nausea And Vomiting Wellbutrin [Bupropion] Other, see comments Suicidal thoughts. OBJECTIVE: General Appearance: alert, well appearing, and in no apparent distress Skin: no rashes or worrisome lesions Neurologic: normal speech, no facial droop, and alert and oriented x 3 ASSESSMENT: Erika was seen today for dysuria. Diagnoses and all orders for this visit: Dysuria - UA Micro If: Clean Catch; Future - Urine Culture - Collect in Lab; Future - sulfamethoxazole-trimethoprim (BACTRIM DS) 800-160 MG tablet; Take 1 Tablet by mouth two times a day for 3 days. PLAN: Please go to a [facility] lab to do the urine tests. We will notify you with the results and next steps. You can start taking the Bactrim. Push fluids, wipe from front to back, urinate after sexual intercourse or sitting in a body of water, urinate when you get the urge, urinate before bed You may take [id number]-[id number] acetaminophen, ibuprofen, azo as needed for discomfort. Do not take azo for more than 2 days so that you may monitor for improvement of symptoms. If you are not improving in 1-2 days, have new or worsening symptoms, or are not well by the end ofyour treatment course please follow-up for an in-person exam Present to the local urgent care or emergency department if you develop a fever, abdominal pain, back pain, nausea or vomiting, or inability to or difficulty urinating. Patient is agreeable to the treatment plan and any follow up evaluation. Diagnosis explained and options for treatment were reviewed with them, they are engaged in decisionmaking. They expressed understanding and agreed with the plan of care. They had no further questions, comments, or concerns by the end of their visit. Nemo Sharma PA-C 05/24/2023, 1:32 PM This visit was completed as a virtual video visit using a synchronous, two-way, audio-video technology platform. All issues as documented above were discussed and addressed. Due to the nature of an audio-video modality, the only components of a physical exam that could be done are the elements supported by direct visual observation. If it was felt that the patient should be evaluated in clinic davin an emergency room setting, then this was discussed with the patient. Patient identification was verified at the start of the visit, including the patient's name, date of , and physical location in case of emergency. Patient was in their home. Provider was in homeoffice. Patient verbally consented to visit and demonstrated an understanding of the limitations ofthis virtual visit. This note was created using a AI assisted electronic dictation device. There may be unintended grammatical, spelling, or word errors because of this. documented in this encounter Plan of Treatment Upcoming Encounters Date Type Department Care Team (Late st Contact Info) Description 07/02/2023 8:05 AM CDT Telemedicine [facility] [address] [place] [address]. [place] [address] Amelia Britton MD [address] [place] [address] Scheduled Orders Name Type Priority Associated Diagnoses Orde r Schedule UA Micro If: Clean Catch Lab Routine Dysuria Expected: 05/24/2023, Expires: 08/22/2023 Urine Culture - Collect in Lab Microbiology Routine Dysuria Expected: 05/24/2023, Expires: 08/22/2023 documented as of this encounter Visit Diagnoses Diagnosis Dysuria- Primary documented in this encounter Care Teams Recreation Worker Relationship Specialty Start Date End Date Richard Ramachandran, CAD DESIGNER DRAFTER, CLAY DIGGER [address] [place] [address] PCP - General Nurse Practitioner 05/10/23 documented as of this encounter
--- OUTSIDE RECORDS SUMMARY | 2023-06-09 03:51 | XMS_ITS | Encounter Summary ---
Author Name Unknown Organization [facility] Address [address] [place] [address] Care Team Providers Care Cleaner Laboratory Equipment Name Role Phone Richard Ramachandran APRN, STAFF OCCUPATIONAL THERAPIST Primary Care Provide r Reason for Visit * Reason Comments CRAMPS Encounter Details Date Type Department Care Team (Late st Contact Info) Description 06/08/2023 Nurse Triage [facility] [address] [place], [place] [id number] Richard Ramachandran APRN, STAFF OCCUPATIONAL THERAPIST [address] [place] [address] CRAMPS Social History Tobacco Use Types Packs/Day Years [...] as of this encounter Nursing Notes * Suzie Carson RN - 06/08/2023 3:48 PM CDT Pt calling reporting that she is having menstrual cramping without bleeding for the past 2 weeks. Pt had Nexplanon removed 1 month ago. Pain is 6-7/10, occurring most of the day. Denies vomiting, fever. Problem list reviewed as related to this call. Advice given per protocol. Patient verbalizes unde rstanding. Reason for Disposition Menstrual cramps is main concern [1] Pain present > 3 days AND [2] normally menstrual cramps last 1 to 3 days [1] MODERATE (e.g., interferes with normal activities) pelvic pain AND [2] pain comes and goes (cramps) AND [3] present > 24 hours Protocols used: Pelvic Pain - [id number], Abdominal Pain - Menstrual [id number] documented in this encounter Plan of Treatment Upcoming Encounters Date Type Department Care Team (Late st Contact Info) Description 07/02/2023 8:05 AM CDT [facility] [address] [facility] [place] [address] Amelia Britton MD [address] [place] [address] documented as of this encounter Visit Diagnoses Not on filedocumented in this encounter Care Teams Cleaner Laboratory Equipment Relationship Specialty Start Date End Date Richard Ramachandran APRN, STAFF OCCUPATIONAL THERAPIST [address] [place] [address] PCP - General Nurse Practitioner 05/10/23 documented as of this encounter
--- OUTSIDE RECORDS SUMMARY | 2023-06-09 03:51 | XMS_ITS | Clinical Summary ---
Author Name Unknown [facility] Address [address] [place] [address] Care Team Providers Care Restaurant Team Member Name Role Phone Richard Ramachandran APRN, CHIP UNLOADER Primary Care Provide r Source Comments You are receiving this document as you are listed as the primary care provider,follow-up provider, or the patient has been referred to you for consultation.This is in compliance with the Medicare andMedicaid EHR Incentive Program,which states Providers who transition their patient to another setting of careor provider of care or refers their patient to another provider of care shouldprovide summary care record for each transition of care or referral. [facility] Active Allergy Reactions Criticality Noted Date Comments Lamotrigine Hives High 03/04/2015 Oxycodone Nausea And Vomiting 02/10/2015 Bupropion Other, see comments 12/15/2018 Suicidal thoughts. Medications Medication Sig Dispensed Refills Start Date End Date Status ondansetron (ZOFRAN-ODT) 4 MG disintegrating tablet Take 1 Tablet (4 mg) by mouth every 8 hours as needed for Nausea. 10 Tablet 08/04/2022 Active clindamycin (CLEOCIN T) 1 % lotionIndications:A cne, unspecified acne type APPLY TOPICALLY TO THE AFFECTED AREA DAILY 60 mL 3 12/27/2022 Active traZODone (DESYREL) 50 MG tablet Take 0.5-1 Tablets (25-50 mg) by mouth at bedtime as needed for Sleep. 30 Tablet 5 02/20/2023 Active tretinoin (RETIN-A) 0.05 % creamIndications:Ac ne, unspecified acne type APPLY TOPICALLY TO THE AFFECTED AREA EVERY EVENING 45 g 02/27/2023 Active naltrexone (REVIA) 50 MG tablet Take 1 Tablet (50 mg) by mouth daily at bedtime. 30 Tablet 1 03/19/2023 Active ARIPiprazole (ABILIFY) 10 MG tabletIndications:M ild mixed bipolar II disorder (HRC) Take 1 Tablet (10 mg) by mouth daily. 30 Tablet 1 03/19/2023 Active sertraline (ZOLOFT) 50 MG tabletIndications:M ild mixed bipolar II disorder (HRC),ALBERTO (generalized anxiety disorder) (HRC) TAKE 1 TABLET BY MOUTH DAILY You are due for an Appt. Call [phone] to schedule appt. 30 Tablet 05/22/2023 Active gabapentin (NEURONTIN) 400 MG capsuleIndications: ALBERTO (generalized anxiety disorder) (HRC) TAKE 1 CAPSULE(400 MG) BY MOUTH THREE TIMES DAILY 90 Capsule 05/30/2023 Active buPROPion (WELLBUTRIN SR) 100 MG 12 hour release tablet Take 1 Tablet by mouth two times a day. 60 Tablet 1 09/28/2020 09/29/19 21 Discontinued sertraline (ZOLOFT) 50 MG tabletIndications:M ild mixed bipolar II disorder (HRC),ALBERTO (generalized anxiety disorder) (HRC) TAKE 1 TABLET BY MOUTH DAILY 30 Tablet 1 03/19/2023 05/22/19 24 Discontinued gabapentin (NEURONTIN) 400 MG capsuleIndications: ALBERTO (generalized anxiety disorder) (HRC) Take 1 Capsule (400 mg) by mouth three times a day. 90 Capsule 1 03/19/2023 05/30/19 24 Discontinued sulfamethoxazole-tr imethoprim (BACTRIM DS) 800-160 MG tabletIndications:D ysuria Take 1 Tablet by mouth two times a day for 3 days. 6 Tablet 05/24/2023 05/27/19 24 Active Problems Problem Noted Date Diagnosed Date Other specified persistent mood disorders 2022 Borderline personality disorder 07/13/2021 Exposure to sexually transmitted disease (STD) 0 10/06/2019 Dyssomnia 08/13/2019 Exposure to chlamydia 06/08/2019 Polysubstance abuse 02/05/2019 Substance dependence, in remission 11/13/2018 Alcohol use disorder, moderate, in early remissi on 10/29/2018 Mild mixed bipolar II disorder 12/07/2016 Dysmenorrhea 09/29/2015 ALBERTO (generalized anxiety disorder) 03/03/2015 Bipolar 1 disorder 03/03/2015 Moderate episode of recurrent major depressive d isorder 03/03/2015 Allergic rhinitis due to pollen 09/21/2011 Resolved Problems Problem Noted Date Diagnosed Date Resolved Date Intrauterine device surveillance 10/29/2018 02/25/2020 Chlamydia infection 10/29/2018 04/29/19 Compression fracture of L2 lumbar vertebra 07/21/2015 05/06/2018 Anxiety 02/10/2015 05/12/2017 Headache 05/21/2006 05/06/2018 Overview: LW Modifier: sinusitis on X-ray Streptococcal sore throat 04/24/2005 Overview: LW Onset: [id number] ; Pharyngitis Streptococcal Encounters Date Type Department Care Team Description 06/08/2023 Nurse Triage [facility] Nurse Line [address] [place] [address] Richard Ramachandran APRN, CHIP UNLOADER CRAMPS 05/29/2023 Refill [facility] [address] [facility] [place] [address] Amelia Britton MD Refill 05/24/2023 8:00 AM CDT [facility] [address] [place] [address] Nemo Sharma PA-C Dysuria (Primary Dx) 05/22/2023 E-Visit [facility] [address] [place] [address] Mychart, Generic Provider 05/19/2023 Refill [facility] [address] [place] [address] Amelia Britton MD Refill 05/19/2023 Refill [facility] [address] [place] [address] Amelia Britton MD Refill 05/18/2023 9:20 AM CDT Lab Visit [facility] [address] [place] [address] Screening for tuberculosis 05/18/2023 9:00 AM CDT Office Visit [facility] [address] [place] [address] Screening for tuberculosis 05/18/2023 8:40 AM CDT Lab Visit [facility] [address] [place] [address] Mild mixed bipolar II disorder (HRC); Diabetes mellitus screening 05/15/2023 9:30 AM CDT Ancillary Procedure [facility] [address] [place] [address] Billy Galarza MD Acute midline low back pain without sciatica 05/15/2023 9:00 AM CDT Office Visit [facility] [address] [place] [address] Billy Galarza MD Acute midline low back pain without sciatica (Primary Dx) 05/15/2023 Nurse Triage [facility] [id number] [place] [address] Richard Ramachandran, JULIO C, CHIP UNLOADER Back Pain 05/10/2023 10:20 AM CDT Telemedicine [facility] [address] [place] [address] Gloria Alberts, DAIRY ASSOCIATE, CHIP UNLOADER Bowel habit changes (Primary Dx) 04/30/2023 3:15 PM CDT Office Visit [facility]-CUSTOMER SUPPORT ADVISOR [address] [facility], [address] [place] [address] Alpa Mccormick MD Nexplanon removal (Primary Dx) 04/09/2023 1:00 PM MOTOR BUILDER ASSEMBLER Office Visit [facility] [address] [place] [address] Billy Galarza MD Acute dysfunction of right eustachian tube (Primary Dx); Need for tetanus booster 04/04/2023 6:00 PM MOTOR BUILDER ASSEMBLER Office Visit [facility] [address] [place] [address] Khanh Joya, DO No periods (Primary Dx) 04/04/2023 5:50 PM MOTOR BUILDER ASSEMBLER Lab Visit [facility] [address] [place] [address] Diabetes mellitus screening (Primary Dx); No periods; Mild mixed bipolar II disorder (HRC) 03/19/2023 9:05 AM MOTOR BUILDER ASSEMBLER Telemedicine [facility] [address] [facility] [place] [address] Amelia Britton MD Mild mixed bipolar II disorder (HRC) (Primary Dx); ALBERTO (generalized anxiety disorder) (HRC); Alcohol use disorder, moderate, in early remission (HRC) 03/12/2023 Nurse Triage [facility] [address] [place], [place] [address]. [place] [address] Unknown, Physician Medication Problems 03/12/2023 Refill [facility] [address] [facility] [address] Amelia Britton MD Refill from Last 3 Months Immunizations Name Administration Dates Next Due 4vHPV (Gardasil) 03/24/2012,12/06/2011, 2 DTaP 03/23/2004, 0,1999,1999 DTaP/Hib 09/17/2000 Flu Vac Preserv Free (3+yrs) 12/06/2011, 02/14/2011,01/27/2009,2006,03/29/2006,12/26/2004,02/14/2004,0 03/03/2003 H1n1 Miv Sanofi 3+ Yr (Injected) 01/27/2009 HepA Adult (19+ yrs) 03/09/2019 HepA Ped/Adol (1-18 yrs) 09/21/2011,09/13/2009 HepB Adult (Engerix-B, 20+ y rs, 3 dose series) 03/09/2019,02/09/2000,1999,1999 Hib (ActHIB) 1999,1999,1999 IPV (Polio) 03/23/2004, 0,1999,1999 Influenza (Fluzone 0.25, 6-35 mos) 12/05/2012 Influenza IIV4 (Quadrivalent ) 0.5mL (80892) 01/17/2022,10/28/2019,07/22/2015,2013,12/05/2012 Influenza, Unspecified Formulation 01/27,11/29/2006,03/29/2006,2004,02/14/2004,03/03/2003,01/28/2003 MCV4 (Menactra) 09/21/2011 MMR 03/23/2004,09/17/2000 Pfizer Monovalent 12+ Purple Top 07/02/2020,05/20 TDAP (BOOSTRIX) 09/21/2011 Tdap 04/09/2023 Typhoid (Typhim Vi, IM) 07/22/2015 Varicella 09/13/2009,09/17/2000 YF (Yellow Fever) 07/22/2015 Family History Medical History Relation Name Comments Allergies Father Allergies Mother Amblyopia/Strabismus Negative Family History Blindness Negative Family History Cataract Negative Family History Glaucoma Negative Family History Macular Degeneration Negative Family History Retinal Detachment Negative Family History Relation Name Status Comments Father Mother Social History Tobacco Use Types Packs/Day Years Used Date Smoking Tobacco: Former Cigarettes 0.3 1 Smokeless Tobacco: Never Tobacco Cessation:Counseling Given: Not Answered Comments:juuls Alcohol Use Standard Drinks/Week Comments Not Currently 0 (1 standard drink = 0.6 oz pur e alcohol) Sex and Gender Information Value Date Recorded Sex Assigned at Not on file Gender Identity Not on file Sexual Orientation Not on file Last Filed Vital Signs Vital Sign Reading Time Taken Comments Blood Pressure 124/71 05/15/2023 9:03 AM CDT Pulse 54 05/15/2023 9:03 AM CDT Temperature 36.8 ??C (98.3 ??F) 05/15/2023 9:16 AM CD T Respiratory Rate 18 04/04/2023 5:41 PM MOTOR BUILDER ASSEMBLER Oxygen Saturation 99% 04/04/2023 5:41 PM MOTOR BUILDER ASSEMBLER Inhaled Oxygen Concentration - - Weight 100.2 kg (221 lb) 05/15/2023 9:03 AM CDT Height 162.6 cm (5' 4) 05/15/2023 9:03 AM CDT Body Mass Index 37.93 05/15/2023 9:03 AM CDT Plan of Treatment Upcoming Encounters Date Type Department Care Team (Late st Contact Info) Description 07/02/2023 8:05 AM CDT Telemedicine [facility] [address] [place] [address] Amelia Britton MD [address] [place], [place] [phone] Health Maintenance Due Date Last Done Comments Pneumococcal (1 - PCV) 2005 Adult Preventive Visit 06/22/2021 06/22/2020 COVID-19 Vaccine ( season) 2022 07/02/2020, 06/09/2020 Influenza (#1) 2022 01/17/2022, 10/2019, 07/22/2015, Additional history exists Cervical Cancer Screening 06/23/2023 06/22/2020 Chlamydia 01/18/2024 01/17/2023, 10/19, 08/04/2022, Additional history exists DTaP/Tdap/Td (8 - Tdap) 04/09/2033 04/09/19 24, 09/21/2011, 03/23/2004, Additional history exists Zoster/Shingles (1 of 2) 2049 Hib Completed 09/17/2000, 08/20, 1999, Additional history exists IPV (Polio) Completed 03/23/2004, 01/19, 1999, Additional history exists Varicella Completed 09/13/2009, 09/17/2000 MCV4 Aged Out 09/21/2011 No longer eligi ble based on patient's age to complete this topic HPV Vaccine Completed 03/24/2012, 11/18, 09/21/2011 HepA Completed 03/09/2019, 08/0 04/2011, 09/13/2009 HepB Completed 03/09/2019, 01/19, 1999, Additional history exists HIV Screening (Preventive Services) Completed 11/02/2022, 01/17/2022, 09/12/2021, Additional history exists Hep C Screening (Preventive Services) Completed 11/02/2022, 09/12/2021, 01/14/2021, Additional history exists Procedures Procedure Name Priority Date/Time Associated Diagnosis Comments TB QUANTIFERON GOLD PLUS MITOGEN Routine 05/18/2023 9:21 AM CDT Screening for tuberculosis TB QUANTIFERON GOLD PLUS TB2 Routine 05/18/2023 9:21 AM CDT Screening for tuberculosis TB QUANTIFERON GOLD PLUS TB1 Routine 05/18/2023 9:21 AM CDT Screening for tuberculosis TB QUANTIFERON GOLD PLUS NIL Routine 05/18/2023 9:21 AM CDT Screening for tuberculosis TB QUANTIFERON GOLD PLUS Routine 05/18/2023 9:21 AM CDT Screening for tuberculosis HGB A1C Routine 05/18/2023 8:42 AM CDT Diabetes mellitus screening LIPID PANEL & DIRECT LDL (IF NEEDED) Routine 05/18/2023 8:42 AM CDT Mild mixed bipolar II disorder (HRC) XR LUMBAR SPINE AP/LAT VIEWS Routine 05/15/2023 9:37 AM CDT Acute midline low back pain without sciatica UA WITH MICROSCOPIC STAT 04/04/2023 5 :51 PM MOTOR BUILDER ASSEMBLER No periods TEST (URINE) STAT 04/04/2023 5:51 PM MOTOR BUILDER ASSEMBLER No periods CHLAMYDIA & GC (14 YEARS & OLDER) Routine 01/17/2023 4:06 PM MOTOR BUILDER ASSEMBLER Vaginal odor HIV 1/2 AG/AB 4TH GEN Routine 11/02/2022 10:25 AM CDT Screen for STD (sexually transmitted disease) HEPATITIS C ANTIBODY, WITH REFLEX Routine 11/02/2022 10:25 AM CDT Screen for STD (sexually transmitted disease) PAP TEST Routine 06/22/2020 9:26 AM CDT Screening for malignant neoplasm of cervix from Last 3 Months or Most Recently Relevant to Health Maintenance Results * TB QuantiFERON Gold Plus Mitogen (05/18/2023 9:21 AM CDT) MITOGEN >10.000 IU/mL 05/20/2023 1:07 PM CDT [facility] Blood Venipuncture / Unknown 05/18/2023 9:21 AM CDT 05/18/2023 9:48 AM CDT Irwin Mike [facility]_1 Performing Organization Address City/[facility]/ZIP Co de Phone Number [facility] [address] [place] [address] * TB QuantiFERON Gold Plus TB2 (05/18/2023 9:21 AM CDT) TB2 0.150 IU/mL 05/20/2023 1:08 PM CDT [facility] Blood Venipuncture / Unknown 05/18/2023 9:21 AM CDT 05/18/2023 9:48 AM CDT Irwin CHAPMAN LAB_1 Performing Organization Address City/[facility]/ZIP Co de Phone Number [facility] * TB QuantiFERON Gold Plus TB1 (05/18/2023 9:21 AM CDT) TB1 0.186 IU/mL 05/20/2023 1:08 PM CDT [facility] Blood Venipuncture / Unknown 05/18/2023 9:21 AM CDT 05/18/2023 9:48 AM CDT Irwin Mike [facility]_1 Performing Organization Address [facility]/ZIP Co de Phone Number [facility] [address] * TB QuantiFERON Gold Plus NIL (05/18/2023 9:21 AM CDT) [facility] TB QuantiFERON Gold Plus Negative, M. tuberculosis Infection NOT likely Negative, M. tuberculosis Infection NOT likely 05/20/2023 1:09 PM CDT [facility] NIL 0.235 IU/mL 05/20/2023 1:09 PM CDT [facility] TB1-NIL -0.05 IU/mL 05/20/2023 1:09 PM CDT [facility] TB2-NIL -0.09 IU/mL 05/20/2023 1:09 PM CDT [facility] Mitogen-NIL 9.77 IU/mL 05/20/2023 1:09 PM CDT [facility] Blood Venipuncture / Unknown 05/18/2023 9:21 AM CDT 05/18/2023 9:48 AM CDT Narrative [facility] - 05/20/2023 1:09 PM CDT The results of the QuantiFERON TB Gold Plus should be correlated clinically. A single positive test in populations with a low prevalence of latent tuberculosis infection (low pretest probability), should not be taken as definitive evidence of infection. Decisions regarding retesting should be made on a case by case basis. When TB1-NIL or TB2-NIL is low (<1 IU/mL), repeat testing may alternate between positive and negative due to measurement imprecision and not necessarily a change in immune response. For more information refer to: https://www.cdc.gov/mmwr/preview/mmwrhtml/ul4511h4.htm. Irwin Mike [facility] LAB_1 Performing Organization Address [facility]/ZIP Co de Phone Number [facility] [address] * (ABNORMAL) Lipid Panel and Direct LDL (If Needed) (Expected: 1 Year) (05/18/2023 8:42 AM CDT) Pathologist [facility] Cholesterol 186 0 - 199 mg/dL 05/18/2023 10:43 AM [facility] Triglyceride 194(H) <=149 mg/dL 05/18/2023 10:43 AM [facility] HDL Cholesterol 52 >=40 mg/dL 10:43 AM [facility] LDL, Calculated 95 <130 mg/dL 10:43 AM [facility] Non HDL Chol, Calculated 134 <=159 mg/dL 05/18/2023 10:43 AM [facility] Cholesterol/HDL Ratio 3.6 <=5.0 05/18/2023 10:43 AM [facility] Hours Fasting 12.0 8 - 12 Hours 05/18/2023 10:43 AM [facility] Blood Venipuncture / Unknown 05/18/2023 8:42 AM CDT 05/18/2023 8:55 AM CDT Amelia Britton MD LAB_1 Performing Organization Address City/State/[facility] Co de Phone Number [facility] [address] [place] [address] * Hgb A1C (05/18/2023 8:42 AM CDT) Pathologist [facility] Hemoglobin A1C (Rapid) 5.1 <=5.6 % 05/18/2023 10:32 AM [facility] Estimated Average Glucose (Calc) 100 < 117 mg/dL 05/18/2023 10:32 AM [facility] Comment:Estimated average gl ucose (eAG) converts A1c into glucose units (mg/dL) and estimates average glucose over the past approximately 3 months. The eAG reference interval (<117 mg/dL) corresponds to an A1c of <5.7%. Blood Venipuncture / Unknown 05/18/2023 8:42 AM CDT 05/18/2023 8:55 AM CDT Narrative [facility] - 05/18/2023 10:32 AM CDT The test method used for this Hemoglobin A1c result can experience interference from elevated hemoglobin and other hemoglobin variants. In patients with results that do not correlate clinically, contact the lab for further direction. Amelia Britton MD LAB_1 [facility] [address] [place] [address], [facility] * XR Lumbar Spine AP/Lat Views (05/15/2023 9:37 AM CDT) Anatomical Region Laterality Modality Spine, L-Spine Digital Radiogra phy 05/15/2023 9:26 AM CDT Impressions 05/15/2023 9:46 AM CDT COMPARISON: ??10/14/2015 FINDINGS: ??2 views. 5 lumbar vertebrae. Mild compression deformity of the superior L2 endplate anteriorly, with similar body height loss compared to prior, with mild retropulsion. No new fracture. Mild facet arthropathy at L5-S1. Minimal degenerative disc changes. Narrative Procedure Note Tulio Montez MD - 05/15/2023 IMPRESSION COMPARISON: 10/14/2015 FINDINGS: 2 views. 5 lumbar vertebrae. Mild compression deformity of thesuperior L2 endplate anteriorly, with similar body height loss compared toprior, with mild retropulsion. No new fracture. Mild facet arthropathy atL5-S1. Minimal degenerative disc changes. Billy Galarza MD RAD GD * (ABNORMAL) UA with Microscopic: (04/04/2023 5:51 PM MOTOR BUILDER ASSEMBLER) Urine Color Yellow 04/04/2023 6:10 PM MOTOR BUILDER ASSEMBLER [facility] Urine Clarity Clear Clear 04/04/2023 6:10 PM MOTOR BUILDER ASSEMBLER [facility] Specific Matthews, Urine <=1.005(A) 1.005 - 1.030 04/04/2023 6:10 PM MOTOR BUILDER ASSEMBLER [facility] PH Urine 6.5 5.0 - 8.0 04/04/2023 6:10 PM MOTOR BUILDER ASSEMBLER [facility] Protein, Urine Qual (mg/dL) Negative Neg/Trace 04/04/2023 6:10 PM MOTOR BUILDER ASSEMBLER [facility] Glucose Urine Qual (mg/dL) Negative Negative 04/04/2023 6:10 PM MOTOR BUILDER ASSEMBLER [facility] Ketones, Urine (mg/dL) Negative Negative 04/04/2023 6:10 PM MOTOR BUILDER ASSEMBLER [facility] Urobilinogen, Urine (EU/dL) 0.2 <2.0 04/04/2023 6:10 PM MOTOR BUILDER ASSEMBLER [facility] Bilirubin Urine Negative Negative 04/04/2023 6:10 PM MOTOR BUILDER ASSEMBLER [facility] Blood, Urine Trace Neg/Trace 04/04/2023 6:10 PM MOTOR BUILDER ASSEMBLER [facility] Nitrite Urine Negative Negative 04/04/2023 6:10 PM MOTOR BUILDER ASSEMBLER [facility] Leukocyte Est. Negative Negative 04/04/2023 6:10 PM MOTOR BUILDER ASSEMBLER [facility] Red Blood Cells 0-3 0 - 3 /HPF 04/04/2023 6:10 PM MOTOR BUILDER ASSEMBLER [facility] White Blood Cells 0-5 0 - 5 /HPF 04/04/2023 6:10 PM MOTOR BUILDER ASSEMBLER [facility] Bacteria Occasional(A) None Seen /HPF 04/04/2023 6:10 PM MOTOR BUILDER ASSEMBLER [facility] Squamous Epithelial Cells Occasional None Seen, Occasional, Few /HPF 04/04/2023 6:10 PM MOTOR BUILDER ASSEMBLER [facility] Urine Non-blood Collection / Unknown 04/04/2023 5:51 PM MOTOR BUILDER ASSEMBLER 04/04/2023 5:51 PM MOTOR BUILDER ASSEMBLER Khanh Joya DO LAB_1 Performing Organization Address [facility] Co de Phone Number [facility] [address] [place] [address], [facility] * Test (Urine) - Collect in Lab (04/04/2023 5:51 PM MOTOR BUILDER ASSEMBLER) HCG, Urine Negative Negative 04/04/2023 5:56 PM MOTOR BUILDER ASSEMBLER [facility] Urine Non-blood Collection / Unknown 04/04/2023 5:51 PM MOTOR BUILDER ASSEMBLER 04/04/2023 5:51 PM MOTOR BUILDER ASSEMBLER Khanh S Runde DO LAB_1 [facility] [address] [place] [address], [facility] * Chlamydia & GC (14 Years and Older): Vagina (01/17/2023 4:06 PM MOTOR BUILDER ASSEMBLER) Pathologist [facility] Chlamydia Trachomatis STD Not Detected Not Detected 01/18/2023 12:55 PM MOTOR BUILDER ASSEMBLER [facility] N. gonorrhoeae STD Not Detected Not Detected 01/18/2023 12:55 PM MOTOR BUILDER ASSEMBLER [facility] Swab STD SPECIMEN FROM VAGINA / Unknown Non-blood Collection / Unknown 01/17/2023 4:06 PM MOTOR BUILDER ASSEMBLER 01/17/2023 4:21 PM MOTOR BUILDER ASSEMBLER Narrative [facility] - 01/18/2023 12:55 PM MOTOR BUILDER ASSEMBLER Test performed by Sales Office Assistant Mediated Amplification (TMA). Ivania Jones PA-C LAB_1 Performing Organization Address [facility] Co de Phone Number [facility] [address] [address] [phone] * HIV 1/2 Ag/Ab 4th Generation (11/02/2022 10:25 AM CDT) Pathologist [facility] HIV 1/2 Antigen/Antib kaylene (4th generation) Negative (Non Reactive) Negative (Non Reactive) 11/02/2022 7:14 PM CDT [facility] Comment:HIV-1 p24 Antigen an d HIV-1/HIV-2 Antibody not detected Blood Venipuncture / Unknown 11/02/2022 10:25 AM CDT 11/02/2022 10:37 AM CDT Nemo Hendricks PA-C LAB_1 Performing Organization Address City/[facility]/ZIP Co de Phone Number [facility] [address] [place], [place] [address] * Hepatitis C Antibody, with Reflex (11/02/2022 10:25 AM CDT) Pathologist [facility] Hepatitis C Antibody Negative (Non Reactive) Negative (Non Reactive) 11/02/2022 7:14 PM CDT [facility] Comment:Antibodies to HCV no t detected. Does not exclude the possiblity of exposure to HCV. Blood Venipuncture / Unknown 11/02/2022 10:25 AM CDT 11/02/2022 10:37 AM CDT Nemo Hendricks PA-C LAB_1 [facility] [address] [employer] [address] * PAP Test (06/22/2020 9:26 AM CDT) Case Report Pap ? Case: [id number] ? Authorizing Provider: ??Lisette Ivey, ?Collected: ? 06/22/2020 09 ? DAIRY ASSOCIATE, CHIP UNLOADER ? Ordering Location: ? [facility] ?Received: ?06/22/2020 0938 ? Obstetrics and Gynecology ? First Screen: ?Ivania Palacios CT (ASCP) ? Specimen: ?Pap Test, Routine, Cervix/Endocervix ? 06/29/2020 11:[address] [facility] Pap Specimen Adequacy Satisfactory for evaluation, endocervical/mark sformation zone component present. 06/29/2020 11:[address] [facility] Pap Interpretation Negative for intraepithelial lesion or malignancy (NILM). 06/29/2020 11:[address] [facility] Pap Disclaimer The Pap test is a screening test designed to aid in the detection of cervical cancer and its precursor lesions. It is not a diagnostic procedure and should not be used as the sole means of detecting cervical cancer. Both false-positive and false-negative results may occur. 06/29/2020 11:[address] [facility] Gross Description The specimen is received in SurePath fixative and properly labeled. 1 Pap-stained SurePath slide is prepared. 06/29/2020 11:[address] [facility] Embedded Images 11:[address] [facility] Other Specimen Type ENTIRE ENDOCERVIX / Unknown 06/22/2020 9:26 AM CDT 06/22/2020 9:38 AM CDT Comment:LMP: No LMP recorded . (Menstrual status: IUD). Lisette Ivey APRN, [facility] PATHOL [facility] Performing Organization Address City/State/[facility] [place] [address], [facility] [phone] from Last 3 Months or Most Recently Relevant to Health Maintenance Advance Directives * Full Code (Latest Code Status on File) Date Activated Date Inactivated Comments 07/12/2021 10:23 PM 07/16/2021 12:32 PM * Full Code Date Activated Date Inactivated Comments 09/15/2014 8:46 AM 09/15/2014 2:44 PM Care Teams Restaurant Team Member Relationship Specialty Start Date End Date Richard Ramachandran, DAIRY ASSOCIATE, CHIP UNLOADER [address] [place] [address] PCP - General Nurse Practitioner 05/10/23
--- OUTSIDE RECORDS SUMMARY | 2023-06-09 03:51 | XMS_ITS | Encounter Summary ---
Author Name Unknown Organization [facility] Address [address] [place] [address] Care Team Providers Care Linux Systems Analyst Name Role Phone Richard Ramachandran APRN, CANCER PROGRAM CONSULTANT Primary Care Provide r Encounter Details Date Type Department Care Team (Late Contact Info) Description 05/22/2023 E-Visit [facility] [address] [place] [address] [place], [facility] [place] [address] Social History Tobacco Use Types Packs/Day Years [...] as of this encounter Nursing Notes * Jose M Lenz - 05/22/2023 3:31 PM CDT Patient called back and is scheduled on 07/02/23. Vick Ambriz 3:31 PM 05/22/23 documented in this encounter Plan of Treatment Upcoming Encounters Date Type Department Care Team (Late st Contact Info) Description 07/02/2023 8:05 AM CDT Telemedicine [facility] [address] [place] [address] Amelia Britton MD [address] [place] [address] documented as of this encounter Visit Diagnoses Not on filedocumented in this encounter Care Teams Linux Systems Analyst Relationship Specialty Start Date End Date Richard Ramachandran, LEATHER SPONGER, CANCER PROGRAM CONSULTANT [address] [address] [place] [address] PCP - General Nurse Practitioner 05/10/23 documented as of this encounter
--- OUTSIDE RECORDS SUMMARY | 2023-06-09 03:52 | XMS_ITS | Encounter Summary ---
Author Name Unknown Organization [facility] Address [address] [place] [address] Care Team Providers Care Bullet Charging Machine Operator Name Role Phone Richard Ramachandran APRN, KILN DRAWER Primary Care Provide r Reason for Visit * Reason Comments Refill Encounter Details Date Type Department Care Team (Late st Contact Info) Description 05/19/2023 Refill [facility] [address] [facility] [place] [address] Amelia Britton MD [address] [place] [address] Refill Social History Tobacco Use Types Packs/Day [...] as of this encounter Nursing Notes * Yarely Gutierrez - 05/22/2023 1:08 PM CDT Attempted to reach pt to schedule. Voice mail full. Sent message thru my chart to schedule. * Tameka Rousseau RN - 05/22/2023 12:59 PM CDT RN sent 30 day of medication per Refill Protocol. Message inputed on Rx for patient to schedule appointment. Requested Prescriptions Pending Prescriptions Disp Refills sertraline (ZOLOFT) 50 MG tablet [Pharmacy Med Name: SERTRALINE 50MG TABLETS] 30 Tablet 0 Sig: TAKE 1 TABLET BY MOUTH DAILY You are due for an Appt. Call [phone] to schedule appt. Routing to CA Team: Please call patient/family to assist with scheduling follow up appointment. Ok to close encounter once scheduled. documented in this encounter Plan of Treatment Upcoming Encounters Date Type Department Care Team (Late st Contact Info) Description 07/02/2023 8:05 AM CDT [facility] [address] [facility] [place] [address] Amelia Britton MD [address] [place] [address] documented as of this encounter Visit Diagnoses Diagnosis Mild mixed bipolar II disorder (HRC) Other bipolar disorders ALBERTO (generalized anxiety disorder) (HRC) Generalized anxiety disorder documented in this encounter Care Teams Bullet Charging Machine Operator Relationship Specialty Start Date End Date Richard Ramachandran APRN, ADRIANNE [address] [place] [address] PCP - General Nurse Practitioner 05/10/23 documented as of this encounter
--- OUTSIDE RECORDS SUMMARY | 2023-06-09 03:52 | XMS_ITS | Encounter Summary ---
Author Name Unknown Organization [facility] Address [address] [place] [address] Care Team Providers Care Fullerette Name Role Phone No Primary/Referring, Phy Primary Care Provider Unavailable Reason for Referral * Consult/Transfer Care (Routine) - New Request Specialty Diagnoses / Procedures Referred By Estevan almeida Referred To Contact Diagnoses Acute dysfunction of right [place]ustach[place] [address] [place] [address] Referral ID Status Reason Start Date Expiration Date V isits Requested Visits Authorized [id number] New Request 04/09/2023 07/08/2024 1 1 Scheduling Instructions Your clinician has recommended an appointment with [facility] ([facility]) - Head & Neck Surgery. You may call [phone] for help scheduling your appointment. We suggest you call your health insurance company about your coverage and benefits for this appointment. Question Answer Appointment Urgency? Non-Urgent Reason for visit? Decreased hearing, eustachian tube dysfunction, right ear. LIZING SAW OPERATOR * Consult/Transfer Care (Routine) - New Request Specialty Diagnoses / Procedures Referred By Estevan almeida Referred To Contact Diagnoses Acute dysfunction of [place] [address] [place] [address] Referral ID Status Reason Start Date Expiration Date V isits Requested Visits Authorized [id number] New Request 04/09/2023 07/08/2024 1 1 Scheduling Instructions Your clinician has recommended an appointment with [facility]. You may call [phone] to schedule your appointment. We suggest you call your health insurance company about your coverage and benefits for this appointment. Question Answer Appointment Urgency? Non-Urgent Reason for visit? Decreased hearing, eustachian tube dysfunction, right ear. LIZING SAW OPERATOR Reason for Visit * Reason Comments Ear Pain ear wax cleaningdid inform one time visit; Encounter Details Date Type Department Care Team (Late st Contact Info) Description 04/09/2023 1:00 PM EQUALIZING SAW OPERATOR Office Visit [facility] [address] [place], [place] [phone] [place] [id number] [place] [phone] Acute dysfunction of right eustachian tube (Primary Dx); Need for tetanus booster Social History Tobacco Use Types Packs/Day Years [...] on file documented as of this encounter Last Filed Vital Signs Vital Sign Reading Time Taken Comments Blood Pressure 129/69 04/09/2023 1:02 PM EQUALIZING SAW OPERATOR Pulse 78 04/09/2023 1:02 PM EQUALIZING SAW OPERATOR Temperature 36.6 ??C (97.9 ??F) 04/09/2023 1:23 PM CS T Respiratory Rate - - Oxygen Saturation - - Inhaled Oxygen Concentration - - Weight 99.8 kg (220 lb) 04/09/2023 1:02 PM EQUALIZING SAW OPERATOR Height 162.6 cm (5' 4) 04/09/2023 1:02 PM EQUALIZING SAW OPERATOR Body Mass Index 37.76 04/09/2023 1:02 PM EQUALIZING SAW OPERATOR documented in this encounter Patient Instructions * Attachments The following attachments cannot be sent through Care Everywhere. * Eustachian Tube Problems (Tajik) documented in this encounter Progress Notes * Billy Galarza MD - 04/09/2023 1:00 PM CST SUBJECTIVE: This 23-year-old female notes 3 week history right ear plugging and muffled hearing. Symptoms came on gradually and not suddenly. Hearing seems to be mildly diminished subjectively on that side. Medications: Current Outpatient Medications Medication Sig Dispense Refill ARIPiprazole (ABILIFY) 10 MG tablet Take 1 Tablet (10 mg) by mouth daily. 30 Tablet 1 ciprofloxacin (CIPRO) 500 MG tablet Take 1 Tablet (500 mg) by mouth two times a day. clindamycin (CLEOCIN T) 1 % lotion APPLY TOPICALLY TO THE AFFECTED AREA DAILY 60 mL 3 erythromycin 5 MG/GM (0.5%) eye ointment APPLY 1/4 INCH RIBBON BEFORE BEDTIME INTO BOTH EYES FOR 2 WEEKS etonogestrel (NEXPLANON) 68 MG implant Inject 68 mg subcutaneously .. 1 Each 0 fluconazole (DIFLUCAN) 150 MG tablet Take 1 Tablet (150 mg) by mouth daily. gabapentin (NEURONTIN) 400 MG capsule Take 1 Capsule (400 mg) by mouth three times a day. 90 Capsule 1 NAC 600 MG capsule Take 2 Capsules (1,200 mg) by mouth two times a day. naltrexone (REVIA) 50 MG tablet Take 1 Tablet (50 mg) by mouth daily at bedtime. 30 Tablet 1 ondansetron (ZOFRAN-ODT) 4 MG disintegrating tablet Take 1 Tablet (4 mg) by mouth every 8 hours as needed for Nausea. 10 Tablet 0 sertraline (ZOLOFT) 50 MG tablet TAKE 1 TABLET BY MOUTH DAILY 30 Tablet 1 traZODone (DESYREL) 50 MG tablet Take 0.5-1 Tablets (25-50 mg) by mouth at bedtime as needed for Sleep. 30 Tablet 5 tretinoin (RETIN-A) 0.05 % cream APPLY TOPICALLY TO THE AFFECTED AREA EVERY EVENING 45 g 0 No current facility-administered medications for this visit. Adverse Drug Reactions: Lamotrigine, Oxycodone, and Wellbutrin [bupropion] Social History: Social History Socioeconomic History Marital status: Single Spouse name: Not on file Number of children: Not on file Years of education: Not on file Highest education level: Not on file Occupational History Occupation: [employer] Tobacco Use Smoking status: Former Current packs/day: 0.25 Average packs/day: 0.3 packs/day for 1 year (0.3 ttl pk-yrs) Types: Cigarettes Smokeless tobacco: Never Tobacco comments: juuls Vaping Use Vaping status: Every Day Substances: Flavoring, Nicotine-salt Substance and Sexual Activity Alcohol use: Not Currently Drug use: Not Currently Types: Marijuana Sexual activity: Yes Partners: Male control/protection: Implant Other Topics Concern Bike Helmet Not Asked City Water Not Asked Exercise Not Asked Guns in home Not Asked Seat Belt Not Asked Special Diet Not Asked Weight Concern Not Asked Social History Narrative Not on file Social Determinants of Health Financial Resource Strain: Not on file Food Insecurity: Not on file Transportation Needs: Not on file Intimate Partner Violence: Not on file Housing Stability: Not on file OBJECTIVE: Vital Signs: BP 129/69 (BP Location: Left Arm, BP Cuff Size: Large) Pulse 78 Temp 97.9 ??F (36.6 ??C) (Oral) Ht 5' 4 (1.626 m) Wt 220 lb (99.8 kg) BMI 37.76 kg/m?? General: Alert. Appears well. Eyes: Full EOM, PERRLA, without lesions or injection. Ears: Canals and TMs normal. Neck: Supple, without masses, lymphadenopathy, or tenderness. No thyromegaly or nodules. Throat: Moist mucous membranes without lesions, erythema, or exudate. ASSESSMENT: ICD-10-CM 1. Acute dysfunction of right eustachian tube H69.91 Audiology Consult-Adult/Peds Otolaryngology Consult Adult/Peds 2. Need for tetanus booster Z23 Tdap PLAN: Recommend time and observation at this point. Handout given with respect to diagnosis. Referrals were placed to audiology and ENT so that if symptoms persist here in the next few weeks without any improvement or change she will follow-up there for recheck and further evaluation. Tdap given today. Resume routine follow-up with PCP. LIZING SAW OPERATOR documented in this encounter Plan of Treatment Upcoming Encounters Date Type Department Care Team (Late st Contact Info) Description 07/02/2023 8:05 AM CDT Telemedicine [facility] [address] [place] [address] Amelia Britton MD [address] [place] [address] Scheduled Referrals Name Type Priority Associated Diagnoses Orde r Schedule Audiology Consult-Adult/Peds Referral Routine Acute dysfunction of right eustachian tube Ordered: 04/09/2023 Otolaryngology Consult Adult/Peds Referral Routine Acute dysfunction of right eustachian tube Ordered: 04/09/2023 documented as of this encounter Visit Diagnoses Diagnosis Acute dysfunction of right eustachian tube- Primary Need for tetanus booster Need for prophylactic vaccination with tetanus toxoid alone documented in this encounter Care Teams Fullerette Relationship Specialty Start Date End Date No Primary/Referring, Phy PCP - General 07/12/21 4 documented as of this encounter
--- OUTSIDE RECORDS SUMMARY | 2023-06-09 03:52 | XMS_ITS | Encounter Summary ---
Author Name Unknown Organization [facility] Address [address] [address] Care Team Providers Care Distribution Technician Name Role Phone No Primary/Referring, Phy Primary Care Provider Unavailable Reason for Visit * Reason Comments Nexplanon Removal Encounter Details Date Type Department Care Team (Late st Contact Info) Description 04/30/2023 3:15 PM CDT [facility] Visit [facility] [address] [address] [place] [address] [address] Nexplanon removal (Primary Dx) Social History Tobacco Use Types [...] Sign Reading Time Taken Comments Blood Pressure 129/73 04/30/2023 3:22 PM CDT Pulse 60 04/30/2023 3:22 PM CDT Temperature - - Respiratory Rate - - Oxygen Saturation - - Inhaled Oxygen Concentration - - Weight 100.2 kg (221 lb) 04/30/2023 3:22 PM CDT Height - - Body Mass Index 37.93 04/09/2023 1:02 PM ROLL EDGE MACHINE OPERATOR documented in this encounter Progress Notes * Alpa Young MD - 04/30/2023 3:15 PM CDT [facility] GREENHOUSE TECHNICIAN Procedure Note Patient presents today for Nexplanon removal. She had the device placed on 09/2022. Procedure: Written consent was obtained for removal of contraceptive implant. Risks discussed included bleeding infection damage to surrounding structures, inability to remove necessitating surgical removal. Patient agrees. Implant was palpated in the left upper inner arm. Area was cleansed with betadine. Less than 3 mL of lidocaine 1% plain was infiltrated in to the subcutaneous area and 1 cm along the implant. A 2-3 mm puncture wound was created with an 11 blade scalpel over the distal end ofthe implant. The implant was identified and grasp with hemostat. It was removed in full and noted to be intact. It was discarded. The puncture wound was covered with steri strip and wraped with compression dressing. Patient tolerated the procedure well. EBL was 10 mL. No complications. Reviewed returning to clinic for fevers, redness or pain at incision, any concerns. Reviewed need for backup contraception. Plans for contraception: condoms. Dr. Jace Young Pg [phone] 04/30/2023 documented in this encounter Plan of Treatment Upcoming Encounters Date Type Department Care Team (Late st Contact Info) Description 07/02/2023 8:05 AM CDT Telemedicine [facility] [address] [place] [address] Amelia Britton MD [address] [place] [address] documented as of this encounter Visit Diagnoses Diagnosis Nexplanon removal- Primary Surveillance of previously prescribed implantable subdermal contraceptive documented in this encounter Care Teams Distribution Technician Relationship Specialty Start Date End Date No Primary/Referring, Phy PCP - General 07/12/21 4 documented as of this encounter
--- OUTSIDE RECORDS SUMMARY | 2023-06-09 03:52 | XMS_ITS | Encounter Summary ---
Author Name Unknown Organization [facility] Address [address] [place] [address] Care Team Providers Care Critical Systems Technician Name Role Phone Richard Ramachandran APRN, LINOTYPE OPERATOR Primary Care Provide r Encounter Details Date Type Department Care Team (Late st Contact Info) Description 05/18/2023 8:40 AM CDT Lab Visit [facility] [address] [place] [address] Mild mixed bipolar II disorder (HRC); Diabetes mellitus screening Social History Tobacco Use Types Packs/Day Years [...] on file documented as of this encounter Progress Notes * Amelia Britton MD - 05/18/2023 8:40 AM CDT Hi Erika, your triglycerides (one part of cholesterol) are elevated but everything else looks great. This can be affected by medications you are taking but also can be affected by diet. Thanks forgetting the labs done. We can continue to monitor this. Amelia Britton MD * Tameka Rousseau RN - 05/18/2023 8:40 AM CDT Provider responded to patient online. documented in this encounter Plan of Treatment Upcoming Encounters Date Type Department Care Team (Late st Contact Info) Description 07/02/2023 8:05 AM CDT [facility] [address] [facility] [place] [address] Amelia Britton MD [address] [place] [address] documented as of this encounter Procedures Procedure Name Priority Date/Time Associated Diagnosis Comments LIPID PANEL & DIRECT LDL (IF NEEDED) Routine 05/18/2023 8:42 AM CDT Mild mixed bipolar II disorder (HRC) HGB A1C Routine 05/18/2023 8:42 AM CDT Diabetes mellitus screening documented in this encounter Results * Hgb A1C (05/18/2023 8:42 AM CDT) Hemoglobin A1C (Rapid) 5.1 <=5.6 % 05/18/2023 10:32 AM CDT [facility] Estimated Average Glucose (Calc) 100 < 117 mg/dL 05/18/2023 10:32 AM T [facility] Comment:Estimated average gl ucose (eAG) converts A1c into glucose units (mg/dL) and estimates average glucose over the past approximately 3 months. The eAG reference interval (<117 mg/dL) corresponds to an A1c of <5.7%. Blood Venipuncture / Unknown 05/18/2023 8:42 AM CDT 05/18/2023 8:55 AM CDT [facility] - 05/18/2023 10:32 AM CDT The test method used for this Hemoglobin A1c result can experience interference from elevated hemoglobin and other hemoglobin variants. In patients with results that do not correlate clinically, contact the lab for further direction. Amelia Britton MD LAB_1 Performing Organization Address [facility] Co de Phone Number [facility] [address] [place] [address] * (ABNORMAL) Lipid Panel and Direct LDL (If Needed) (Expected: 1 Year) (05/18/2023 8:42 AM CDT) Cholesterol 186 0 - 199 mg/dL 05/18/2023 10:43 AM [facility] Triglyceride 194(H) <=149 mg/dL 05/18/2023 10:43 AM [facility] HDL Cholesterol 52 >=40 mg/dL 10:43 AM [facility] LDL, Calculated 95 <130 mg/dL 10:43 AM [facility] Non HDL Chol, Calculated 134 <=159 mg/dL 05/18/2023 10:43 AM [facility] Cholesterol/HDL Ratio 3.6 <=5.0 05/18/2023 10:43 AM [facility] Hours Fasting 12.0 8 - 12 Hours 05/18/2023 10:43 AM [facility] Blood Venipuncture / Unknown 05/18/2023 8:42 AM CDT 05/18/2023 8:55 AM CDT Amelia Britton MD LAB_1 Performing Organization Address [facility] Co de Phone Number [facility] [address] [place] [address] documented in this encounter Visit Diagnoses Diagnosis Mild mixed bipolar II disorder (HRC) Other bipolar disorders Diabetes mellitus screening Screening for diabetes mellitus documented in this encounter Care Teams Critical Systems Technician Relationship Specialty Start Date End Date Richard Ramachandran, SENIOR LIVING ADVISOR, LINOTYPE OPERATOR [id number] [place] [address] [place] [address] PCP - General Nurse Practitioner 05/10/23 documented as of this encounter
--- OUTSIDE RECORDS SUMMARY | 2023-06-09 03:52 | XMS_ITS | Encounter Summary ---
Author Name Unknown Organization [facility] Address [address] [place] [address] Care Team Providers Care Head Of History Name Role Phone Richard Ramachandran APRN, CNP Primary Care Provide r Reason for Visit * Reason Comments Back Pain Encounter Details Date Type Department Care Team (Late st Contact Info) Description 05/15/[address] [facility] [address] [place], [place] [phone] Richard Ramachandran APRN, ADRIANNE [address] [place] [phone] Back Pain Social History Tobacco Use Types Packs/Day Years [...] as of this encounter Nursing Notes * Jordyn Iraheta RN - 05/15/2023 7:24 AM CDT Patient calling for appt for back pain, cold sweats and fever the last 5 days. Pain is worse when moving from sitting to standing. Denies cough, leg pain, numbness or tingling. Can walk ok. Urinatingok. Denies blood in her urine. Problem list reviewed as related to this call. Reason for Disposition [1] Fever > 100.0 F (37.8 C) AND [2] flank pain (i.e., in side, below ribs and above hip) Protocols used: Back Usam-NOYFE-BU/AH with SO Warm transferred to photogrammetry airplane pilot to book appt. Future Appointments Date Time Provider Department Center 05/15/2023 9:00 AM Billy Galar[place] MD [facility] 05/17/2023 7:00 AM Richard Ramachandran APRN, NIGHT SHIFT [facility] * Tameka [place] - 05/15/2023 7:21 AM CDT Symptoms Describe your symptoms (if pain, include location): Back pain,fever,going into shoulder. When did they start? About five days Additional comments (related to the above concern): If a prescription is needed, patient would like it filled at the pharmacy listed in Medication Management. Is it okay to leave a detailed message on your voicemail? Yes Is there anything else I can help you with today? documented in this encounter Plan of Treatment Upcoming Encounters Date Type Department Care Team (Late st Contact Info) Description 07/02/2023 8:05 AM CDT Telemedicine [facility] [address] [facility] [place] [address] Amelia Britton MD [address] [facility] [place] [address] documented as of this encounter Visit Diagnoses Not on filedocumented in this encounter Care Teams Head Of History Relationship Specialty Start Date End Date Richard Ramachandran APRN, NIGHT SHIFT [address] [place] [address] PCP - General Nurse Practitioner 05/10/23 documented as of this encounter
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
--- OUTSIDE RECORDS SUMMARY | 2023-06-09 03:52 | XMS_ITS | Encounter Summary ---
Author Name Unknown Organization [facility] Address [address] [place] [address] Care Team Providers Care Program Admin Name Role Phone Richard Ramachandran APRN, ENDLESS BED DRUM SANDER Primary Care Provide r Encounter Details Date Type Department Care Team (Late Contact Info) Description 05/18/2023 9:20 AM CDT Lab Visit [facility] [address] [place] [address] Screening for tuberculosis Social History Tobacco Use Types Packs/Day Years [...] on file documented as of this encounter Plan of Treatment Upcoming Encounters Date Type Department Care Team (Late Contact Info) Description 07/02/2023 8:05 AM CDT Telemedicine [facility] [address] [place] [address] Amelia Britton MD [address] [place] [address] documented as of this encounter Procedures Procedure Name Priority Date/Time Associated Diagnosis Comments TB QUANTIFERON GOLD PLUS Routine 05/18/2023 9:21 AM CDT Screening for tuberculosis TB QUANTIFERON GOLD PLUS MITOGEN Routine 05/18/2023 9:21 AM CDT Screening for tuberculosis TB QUANTIFERON GOLD PLUS TB2 Routine 05/18/2023 9:21 AM CDT Screening for tuberculosis TB QUANTIFERON GOLD PLUS TB1 Routine 05/18/2023 9:21 AM CDT Screening for tuberculosis TB QUANTIFERON GOLD PLUS NIL Routine 05/18/2023 9:21 AM CDT Screening for tuberculosis documented in this encounter Results * TB QuantiFERON Gold Plus Mitogen (05/18/2023 9:21 AM CDT) MITOGEN >10.000 IU/mL 05/20/2023 1:07 PM CDT [facility] Blood Venipuncture / Unknown 05/18/2023 9:21 AM CDT 05/18/2023 9:48 AM CDT [facility] Performing Organization Address City/[facility] Co de Phone Number [facility] [address] [place] [address] * TB QuantiFERON Gold Plus TB2 (05/18/2023 9:21 AM CDT) TB2 0.150 IU/mL 05/20/2023 1:08 PM CDT [facility] Blood Venipuncture / Unknown 05/18/2023 9:21 AM CDT 05/18/2023 9:48 AM CDT [facility] Performing Organization Address City/[facility] Co de Phone Number [facility] [address] [place] [address] * TB QuantiFERON Gold Plus TB1 (05/18/2023 9:21 AM CDT) TB1 0.186 IU/mL 05/20/2023 1:08 PM CDT [facility] Blood Venipuncture / Unknown 05/18/2023 9:21 AM CDT 05/18/2023 9:48 AM CDT [facility] [address] [employer] [address] * TB QuantiFERON Gold Plus NIL (05/18/2023 9:21 AM CDT) Pathologist [facility] TB QuantiFERON Gold Plus Negative, M. tuberculosis Infection NOT likely Negative, M. tuberculosis Infection NOT likely 05/20/2023 1:09 PM CDT [facility] NIL 0.235 IU/mL 05/20/2023 1:09 PM CDT [facility] TB1-NIL -0.05 IU/mL 05/20/2023 1:09 PM CDT [facility] TB2-NIL -0.09 IU/mL 05/20/2023 1:09 PM CDT [facility] Mitogen-NIL 9.77 IU/mL 05/20/2023 1:09 PM CDT [facility] Blood Venipuncture / Unknown 05/18/2023 9:21 AM CDT 05/18/2023 9:48 AM CDT Narrative [facility] - 05/20/2023 1:09 PM CDT The [...] immune response. For more information refer to: https://www.cdc.gov/mmwr/preview/mmwrhtml/ja9992w1.htm. [facility] [address] [place] [address], [facility] documented in this encounter Visit Diagnoses Diagnosis Screening for tuberculosis Screening examination for pulmonary tuberculosis documented in this encounter Care Teams Program Admin Relationship Specialty Start Date End Date Richard Ramachandran, JULIO C, ADRIANNE [address] [place] [address] PCP - General Nurse Practitioner 05/10/23 documented as of this encounter
--- OUTSIDE RECORDS SUMMARY | 2023-06-09 03:52 | XMS_ITS | Encounter Summary ---
Author Name Unknown Organization [facility] Address [address] [place] [address] Care Team Providers Care Painter And Paperhanger Apprentice Name Role Phone Richard Ramachandran APRN, UTILITY SYSTEMS REPAIRER OPERATOR Primary Care Provide r Reason for Visit * Reason Comments Tb Screening Encounter Details Date Type Department Care Team (Late st Contact Info) Description 05/18/2023 9:00 AM CDT Office Visit [facility] [address] [place] [address] Screening for tuberculosis Social History [...] as of this encounter Progress Notes * Carmencita Buckner, RN - 05/18/2023 9:00 AM CDT Erika Snowden is here today for Tuberculosis testing. Step 1: Determine appropriate test for patient. Has patient had a documented previous positive Tuberculin Skin Test (Mantoux Test/TST) or positive QFT-G blood test (Quantiferon Gold/TB Gold)? No What is the patient???s age? 2 years of age or older. The preferred test for this age group is the QFT-G blood test (Quantiferon Gold/TB Gold). If the patient prefers the skin test, the TST can be ordered and administered following this standing order. Step 2: Assessment and Contraindication Screening & Testing QFT-G blood Test Assessment Information (Can be done by RN, INSTRUCTIONAL SPECIALIST, JACKSPOOLER/RMA/MA/EMT). Is TB testing required for C&TC exam, work, school, or immigration? Yes Has there been a recent exposure to an individual with TB disease? No Was patient born in, had recent travel to, or frequently travels to countries where TB disease is common? No Does patient live or work in high-risk settings (i.e., correctional facilities, long-term care facilities, nursing homes, homeless shelters, etc.)? Yes Is patient immunosuppressed? No If the answer is YES to any of these questions, the patient is eligible for a QFT-Gold blood test. Proceed to next step: Order Placement of QFT-G blood Test. If all of the answers are NO, patient does not meet requirements to order TB testing by standing order. Consult clinician for next steps. Contraindication Screening: Received live-virus vaccination within the past 4 weeks? No Patient reports the following TB symptoms: none If patient reports any TB symptoms initiate airborne precautions: patient needs to be seen by clinician. If NO contraindications: the patient is eligible for a QFT-G blood test. (RN, INSTRUCTIONAL SPECIALIST, or JACKSPOOLER/RMA/MA/EMT can place order per standing order for qualified patients). If patient answers YES to contraindication, consult with clinician for next steps. Step 3: Order Placement of QFT-G blood test TB Quantiferon Gold Plus lab order placed per standing order. Patient to present to lab for blood test. documented in this encounter Nursing Notes * Carmencita Buckner RN - 05/18/2023 9:00 AM CDT Patient requesting TB test for employment. documented in this encounter Plan of Treatment Upcoming Encounters Date Type Department Care Team (Late st Contact Info) Description 07/02/2023 8:05 AM CDT Telemedicine [facility] [address] [place] [address] Amelia Britton MD [address] [place] [address] documented as of this encounter Visit Diagnoses Diagnosis Screening for tuberculosis Screening examination for pulmonary tuberculosis documented in this encounter Care Teams Painter And Paperhanger Apprentice Relationship Specialty Start Date End Date Richard Ramachandran APRN, UTILITY SYSTEMS REPAIRER OPERATOR [address] [place] [address] PCP - General Nurse Practitioner 05/10/23 documented as of this encounter
--- OUTSIDE RECORDS SUMMARY | 2023-06-09 03:52 | XMS_ITS | Encounter Summary ---
Author Name Unknown Organization [facility] Address [address] [place] [address] Care Team Providers Care Engineer Rf Deployment Name Role Phone Richard Ramachandran APRN, RELOCATION SPECIALIST Primary Care Provide r Reason for Referral * Procedure/Equipment (Routine) - Incomplete Specialty Diagnoses / Procedures Referred By Contac t Referred To Contact Diagnoses Acute midline low back pain without sciatica Procedures XR Lumbar Spine [place] [address] [place] [address] Referral ID Status Reason Start Date Expiration Date V isits Requested Visits Authorized [id number] Incomplete 05/15/2023 08/13/2024 1 1 Reason for Visit * Reason Comments Back Pain Back painOne Time S yue Encounter Details Date Type Department Care Team (Late st Contact Info) Description 05/15/2023 9:00 AM CDT Office Visit [facility] [address] [facility] [place] [address] [place] [address] [place] [id number] Acute midline low back pain without sciatica (Primary Dx) Social History Tobacco Use Types [...] 05/15/2023 9:16 AM CD T Respiratory Rate - - Oxygen Saturation - - Inhaled Oxygen Concentration - - Weight 100.2 kg (221 lb) 05/15/2023 9:03 AM CDT Height 162.6 cm (5' 4) 05/15/2023 9:03 AM CDT Body Mass Index 37.93 05/15/2023 9:03 AM CDT documented in this encounter Progress Notes * Billy Galarza MD - 05/15/2023 9:00 AM CDT Images from the original note were not included. SUBJECTIVE: This 23-year-old female presents with onset about 1-2 weeks ago of low back pain. Pain developed gradually over period of a couple of days. There was no specific injury recalled or specific moment of onset recalled. Pain is located at midline of the low back with radiation towards the left side. No pain traveling down the legs. No paresthesias in the legs. Pain is notably worse when bending over and with positional change, and is better and significantly less once she gets up and iswalking and moving around. Tylenol and ibuprofen are very effective for pain relief when she has taken those. No acute bowel or bladder changes noted. Past history notable for L2 compression fractureafter a fall in 2016. Medications: Current Outpatient Medications Medication Sig Dispense Refill ARIPiprazole (ABILIFY) 10 MG tablet Take 1 Tablet (10 mg) by mouth daily. 30 Tablet 1 clindamycin (CLEOCIN T) 1 % lotion APPLY TOPICALLY TO THE AFFECTED AREA DAILY 60 mL 3 gabapentin (NEURONTIN) 400 MG capsule Take 1 Capsule (400 mg) by mouth three times a day. 90 Capsule 1 naltrexone (REVIA) 50 MG tablet Take 1 [...] level: Not on file Occupational History Occupation: [employer] Tobacco Use Smoking status: Former Current packs/day: [...] Not on file OBJECTIVE: Vital Signs: BP 124/71 (BP Location: Right Arm, BP Cuff Size: Large) Pulse (!) 54 Temp 98.3 ??F(36.8 ??C) (Oral) Ht 5' 4 (1.626 m) Wt 221 lb (100.2 kg) BMI 37.93 kg/m?? General: Alert. Appears well and in no acute distress. Neuro: Clear speech. Motor function intact. Gait steady. Normal strength noted proximally and distally both lower extremities. Reflexes intact and normal at both knees and both ankles. Straight leg raise negative bilaterally. She can raise up on the toes and heels of both feet without difficulty. She is tender to firm palpation at midline in the mid lower lumbar back and in the left paraspinousmusculature. XR Lumbar Spine AP/Lat Views Order: [id number] Status: Final result Visible to patient: Yes (seen) Next appt: 05/17/2023 at 07:00 AM in Family Medicine (Richard Ramachandran, ORACLE CONSULTANT, RELOCATION SPECIALIST) Dx: Acute midline low back pain without s... Details Reading Physician Reading Date Result Priority Tulio Montez MD [phone] 05/15/2023 Routine Narrative & Impression IMPRESSION COMPARISON: 10/14/2015 FINDINGS: 2 views. 5 lumbar vertebrae. Mild compression deformity of the superior L2 endplate anteriorly, with similar body height loss compared to prior, with mild retropulsion. No new fracture. Mild facet arthropathy at L5-S1. Minimal degenerative disc changes. ASSESSMENT: ICD-10-CM 1. Acute midline low back pain without sciatica M54.50 XR Lumbar Spine AP/Lat Views PLAN: With her prior history we get lumbar spine films today with results as noted above, showing no acute fracture. Suspect acute musculoskeletal low back pain. Symptomatic measures recommended. Continue p.r.n. acetaminophen or ibuprofen as she is doing. Recommend gentle stretching. She was asked to return for recheck promptly if any new or worsening symptoms develop in coming days. Likewise, she should follow up again if pain not significantly improving here within the next 2 weeks or so. Otherwise, resume routine follow-up with PCP. documented in this encounter Plan of Treatment Upcoming Encounters Date Type Department Care Team (Late st Contact Info) Description 07/02/2023 8:05 AM CDT Telemedicine [facility] [address] [facility] [place] [address] Amelia Britton MD [address] [place], [place] [id number] documented as of this encounter Results * XR Lumbar Spine AP/Lat Views (05/15/2023 [...] disc changes. Billy Galarza MD RAD GD documented in this encounter Visit Diagnoses Diagnosis Acute midline low back pain without sciatica- Primary Acute midline low back pain without sciatica documented in this encounter Care Teams Engineer Rf Deployment Relationship Specialty Start Date End Date Richard Ramachandran, ORACLE CONSULTANT, RELOCATION SPECIALIST [address] [place] [address] PCP - General Nurse Practitioner 05/10/23 documented as of this encounter
--- OUTSIDE RECORDS SUMMARY | 2023-06-09 03:52 | XMS_ITS | Encounter Summary ---
Author Name Unknown Organization [facility] Address [address] [place] [address] Care Team Providers Care Men'S Custom Hair Piece Consultant Name Role Phone Richard Ramachandran APRN, CNP Primary Care Provide r Encounter Details Date Type Department Care Team (Late st Contact Info) Description 05/10/2023 10:20 AM CDT Telemedicine [facility] [address] [place] [address] Gloria Alberts APRN, CNP [address] [place] [id number] Bowel habit changes (Primary Dx) Social History Tobacco Use Types [...] as of this encounter Progress Notes * Gloria Alberts APRN, CNP - 05/10/2023 10:20 AM CDT [facility] link was sent successfully. Patient did not sign in to the video visit. Call was made [phone] and went directly to voice mail. Message left stating patient could sign into the video visit within the next 15 minutes, or she would need to reschedule her appointment at [phone]. Video was left open for 17 minutes. documented in this encounter Plan of Treatment Upcoming Encounters Date Type Department Care Team (Late st Contact Info) Description 07/02/2023 8:05 AM CDT Telemedicine [facility] [address] [place] [address] Amelia Britton MD [address] [place] [address] documented as of this encounter Visit Diagnoses Diagnosis Bowel habit changes- Primary Other symptoms involving digestive system documented in this encounter Care Teams Men'S Custom Hair Piece Consultant Relationship Specialty Start Date End Date Richard Ramachandran APRN, ADRIANNE [address] [place] [address] PCP - General Nurse Practitioner 05/10/23 documented as of this encounter
--- OUTSIDE RECORDS SUMMARY | 2023-06-09 03:52 | XMS_ITS | Encounter Summary ---
Author Name Unknown Organization [facility] Address [address] [place] [address] Care Team Providers Care Manager Flight Name Role Phone No Primary/Referring, Phy Primary Care Provider Unavailable Reason for Visit * Reason Comments Medication Problems Encounter Details Date Type Department Care Team (Late st Contact Info) Description 03/12/2023 Nurse Triage [facility] [address] [place], [place] [address] Unknown, Physician [address] [place], [place] [id number] Medication Problems Social History Tobacco Use Types Packs/Day Years [...] as of this encounter Nursing Notes * Faby Ureña RN - 03/12/2023 10:30 PM CST Verified patient identity: Yes Situation/Background (brief explanation of current symptoms/situation): Patient reports she requested a refill for Sertraline 3 times and it was declined. She was calling to get it refilled. No concerning symptoms. She has been out the medication for 5 days. Reviewed with patient pertinent medical history (as it related to the call): N/A Reviewed with patient pertinent medications (as they relate to call): N/A Reviewed with patient pertinent allergies (as they relate to call): N/A Reason for Disposition [1] Caller has NON-URGENT medicine question about med that PCP prescribed AND [2] triager unable toanswer question Protocols used: Medication Refill and Renewal [id number] Plan - Floor Coverings Salesperson when office is open Advised patient/caller to call back CareLine if there are further questions or concerns or to be seen if situation becomes emergent. The CareLine is available 10/09. Faby Roy RN Careline 10:44 PM 03/12/2023 L TECHNICIAN * Lorie Rivera - 03/12/2023 10:27 PM CST Verified patient identity using three identifiers: Yes Caller's relationship to patient: Self, Do you have a provider/clinic where you are seen for this? PN Specialty Medication Questions/New Med Request/ Side Effects What medication are you calling about (name and/or type)? sertraline (ZOLOFT) 50 MG tablet What is your question/concern? Dr. Britton declined this refill three times. Not sure why. Has appointment next on 03/19. Plan: The current callback time to speak with a nurse is 1 hour. If your symptoms change or worsen,or if you have not received a call back in the stated timeframe, please call us back L TECHNICIAN documented in this encounter Plan of Treatment Upcoming Encounters Date Type Department Care Team (Late st Contact Info) Description 07/02/2023 8:05 AM CDT Telemedicine [facility] [address] [place] [address] Amelia Britton MD [address] [place] [address] documented as of this encounter Visit Diagnoses Not on filedocumented in this encounter Care Teams Manager Flight Relationship Specialty Start Date End Date No Primary/Referring, Phy PCP - General 07/12/21 4 documented as of this encounter
--- OUTSIDE RECORDS SUMMARY | 2023-06-09 03:52 | XMS_ITS | Encounter Summary ---
Author Name Unknown Organization [facility] Address [address] [place] [address] Care Team Providers Care Hair Sample Matcher Name Role Phone No Primary/Referring, Phy Primary Care Provider Unavailable Reason for Visit * Reason Comments Refill Encounter Details Date Type Department Care Team ([facility] Contact Info) Description 03/12/2023 Refill [facility] [address] [facility] [place] [address] Amelia Britton MD [address] [place] [address] Refill Social History Tobacco Use Types Packs/Day [...] as of this encounter Nursing Notes * Pricila Lopez RN - 03/19/2023 11:41 AM CST Sertraline denied with note that it is a duplicate. DESIGNER documented in this encounter Plan of Treatment Upcoming Encounters Date Type Department Care Team ([facility] Contact Info) Description 07/02/2023 8:05 AM CDT Telemedicine [facility] [address] [place] [address] Amelia Britton MD [address] [place] [address] documented as of this encounter Visit Diagnoses Diagnosis Mild mixed bipolar II disorder (HRC) Other bipolar disorders ALBERTO (generalized anxiety disorder) (HRC) Generalized anxiety disorder documented in this encounter Care Teams Hair Sample Matcher Relationship Specialty Start Date End Date No Primary/Referring, Phy PCP - General 07/12/21 4 documented as of this encounter
--- OUTSIDE RECORDS SUMMARY | 2023-06-09 03:52 | XMS_ITS | Encounter Summary ---
Author Name Unknown Organization [facility] Address [address] [place] [address] Care Team Providers Care Industrial Psychologist Name Role Phone Richard Ramachandran APRN, HIGHWAY CONSTRUCTION INSPECTOR Primary Care Provide r Reason for Visit * Procedure/Equipment (Routine) - Incomplete Specialty Diagnoses / Procedures Referred By Contac t Referred To Contact Diagnoses Acute midline low back pain without sciatica Procedures XR Lumbar Spine [place] [address] [place] [address] Referral ID Status Reason Start Date Expiration Date V isits Requested Visits Authorized [id number] Incomplete 05/15/2023 08/13/2024 1 1 Encounter Details Date Type Department Care Team (Latest Contact Info) Description 05/15/2023 9:30 AM CDT Ancillary Procedure [facility] [address] [place] [address] [place] [address] [place] [id number] Acute midline low back pain without sciatica Social History Tobacco Use Types Packs/Day Years [...] Info) Description 07/02/2023 8:05 AM CDT Telemedicine [facility] [address] [facility] [place] [address] Amelia Britton MD [address] [place] [address] documented as of this encounter Procedures Procedure Name Priority Date/Time Associated Diagnosis Comments XR LUMBAR SPINE AP/LAT VIEWS Routine 05/15/2023 9:37 AM CDT Acute midline low back pain without sciatica documented in this encounter Results * XR Lumbar Spine [...] Diagnosis Acute midline low back pain without sciatica documented in this encounter Care Teams Industrial Psychologist Relationship Specialty Start Date End Date Richard Ramachandran, RESOURCE AGENT, HIGHWAY CONSTRUCTION INSPECTOR [address] [place] [address] PCP - General Nurse Practitioner 05/10/23 documented as of this encounter
--- OUTSIDE RECORDS SUMMARY | 2023-06-09 03:52 | XMS_ITS | Encounter Summary ---
Author Name Unknown Organization [facility] Address [address] [place] [address] Care Team Providers Care Night Club Manager Name Role Phone No Primary/Referring, Phy Primary Care Provider Unavailable Encounter Details Date Type Department Care Team (Late Contact Info) Description 04/04/2023 5:50 PM UPSET WELDING MACHINE OPERATOR Lab Visit [facility] [address] [place] [address] Diabetes mellitus screening (Primary Dx); No periods; Mild mixed bipolar II disorder (HRC) Social History Tobacco Use Types Packs/Day [...] Info) Description 07/02/2023 8:05 AM CDT Telemedicine [facility] [address] [place] [address] Amelia Britton MD [address] [place] [address] documented as of this encounter Procedures Procedure Name Priority Date/Time Associated Diagnosis Comments UA WITH MICROSCOPIC STAT 04/04/2023 5 :51 PM UPSET WELDING MACHINE OPERATOR No periods TEST (URINE) STAT 04/04/2023 5:51 PM UPSET WELDING MACHINE OPERATOR No periods documented in this encounter Results * Hgb A1C (05/18/2023 8:42 AM CDT) Hemoglobin A1C (Rapid) 5.1 <=5.6 % 05/18/2023 10:32 AM T [facility] Estimated Average Glucose (Calc) 100 < 117 mg/dL 05/18/2023 10:32 AM T [facility] Comment:Estimated average gl ucose (eAG) converts A1c into glucose units (mg/dL) and estimates average glucose over the past approximately 3 months. The eAG reference interval (<117 mg/dL) corresponds to an A1c of <5.7%. Blood Venipuncture / Unknown 05/18/2023 8:42 AM CDT 05/18/2023 8:55 AM CDT Narrative [facility] - 05/18/2023 10:32 AM CDT The test method used for this Hemoglobin A1c result can experience interference from elevated hemoglobin and other hemoglobin variants. In patients with results that do not correlate clinically, contact the lab for further direction. Amelia Britton MD LAB_1 [facility] [address] [place] [address], [facility] * (ABNORMAL) UA with Microscopic: (04/04/2023 5:51 PM UPSET WELDING MACHINE OPERATOR) Urine Color Yellow 04/04/2023 6:10 PM [facility] Urine Clarity Clear Clear 04/04/2023 6:10 PM [facility] Specific [place], Urine <=1.005(A) 1.005 - 1.030 04/04/2023 6:10 PM [facility] PH Urine 6.5 5.0 - 8.0 04/04/2023 6:10 PM [facility] Protein, Urine Qual (mg/dL) Negative Neg/Trace 04/04/2023 6:10 PM [facility] Glucose Urine Qual (mg/dL) Negative Negative 04/04/2023 6:10 PM UPSET WELDING MACHINE OPERATOR [facility] Ketones, Urine (mg/dL) Negative Negative 04/04/2023 6:10 PM [facility] Urobilinogen, Urine (EU/dL) 0.2 <2.0 04/04/2023 6:10 PM [facility] Bilirubin Urine Negative Negative 04/04/2023 6:10 PM [facility] Blood, Urine Trace Neg/Trace 04/04/2023 6:10 PM UPSET WELDING MACHINE OPERATOR [facility] Nitrite Urine Negative Negative 04/04/2023 6:10 PM UPSET WELDING MACHINE OPERATOR [facility] Leukocyte Est. Negative Negative 04/04/2023 6:10 PM [facility] Red Blood Cells 0-3 0 - 3 /HPF 04/04/2023 6:10 PM [facility] White Blood Cells 0-5 0 - 5 /HPF 04/04/2023 6:10 PM [facility] Bacteria Occasional(A) None Seen /HPF 04/04/2023 6:10 PM UPSET WELDING MACHINE OPERATOR [facility] Squamous Epithelial Cells Occasional None Seen, Occasional, Few /HPF 04/04/2023 6:10 PM [facility] Urine Non-blood Collection / Unknown 04/04/2023 5:51 PM UPSET WELDING MACHINE OPERATOR 04/04/2023 5:51 PM UPSET WELDING MACHINE OPERATOR Khanh Joya DO LAB_1 Performing Organization Address City/[facility]/ZIP Co de Phone Number [facility] [address] [place] [id number] * Test (Urine) - Collect in Lab (04/04/2023 5:51 PM UPSET WELDING MACHINE OPERATOR) HCG, Urine Negative Negative 04/04/2023 5:56 PM UPSET WELDING MACHINE OPERATOR [facility] Urine Non-blood Collection / Unknown 04/04/2023 5:51 PM UPSET WELDING MACHINE OPERATOR 04/04/2023 5:51 PM UPSET WELDING MACHINE OPERATOR Khanh Joya DO LAB_1 [facility] [address] [place] [address], [facility] documented in this encounter Visit Diagnoses Diagnosis Diabetes mellitus screening- Primary Screening for diabetes mellitus No periods Absence of menstruation Mild mixed bipolar II disorder (HRC) Other bipolar disorders documented in this encounter Care Teams Night Club Manager Relationship Specialty Start Date End Date No Primary/Referring, Phy PCP - General 07/12/21 4 documented as of this encounter
--- OUTSIDE RECORDS SUMMARY | 2023-06-09 03:52 | XMS_ITS | Encounter Summary ---
Author Name Unknown Organization [facility] Address [address] [place] [address] Care Team Providers Care Mailroom Supervisor Name Role Phone No Primary/Referring, Phy Primary Care Provider Unavailable Reason for Visit * Reason Comments TEST, Pt reports she being gaining weight in stomach in the past three months. Pt reports she has the implant on the arm and doesn't get her period. Encounter Details Date Type Department Care Team (Late st Contact Info) Description 04/04/2023 6:00 PM CONCRETE CRUSHER LOADER OPERATOR Office Visit Urgent Care [address] [address] Khanh Joya S, DO [address] [place] [address] No periods (Primary Dx) Social History Tobacco Use Types [...] Sign Reading Time Taken Comments Blood Pressure 133/80 04/04/2023 5:45 PM CONCRETE CRUSHER LOADER OPERATOR Pulse 80 04/04/2023 5:45 PM CONCRETE CRUSHER LOADER OPERATOR Temperature 36.7 ??C (98.1 ??F) 04/04/2023 5:41 PM CS T Respiratory Rate 18 04/04/2023 5:41 PM CONCRETE CRUSHER LOADER OPERATOR Oxygen Saturation 99% 04/04/2023 5:41 PM CONCRETE CRUSHER LOADER OPERATOR Inhaled Oxygen Concentration - - Weight - - Height - - Body Mass Index - - documented in this encounter Progress Notes * Khanh Joya DO - 04/04/2023 6:00 PM CST Erika Snowden is a 23 y.o.female presents to the Urgent Care for TEST, . Pt reports she being gaining weight in stomach in the past three months. Pt reports she has the implant on the arm and doesn't get her period. Pt reports she being tired more and wants to be tested. Patient left before she could be evaluated by clinician. Khanh Joya DO RETE CRUSHER LOADER OPERATOR documented in this encounter Nursing Notes * Nevaeh Jansen LPN - 04/04/2023 6:00 PM CST Erika Snowden is a 23 y.o.female presents to the Urgent Care for TEST, . Pt reports she being gaining weight in stomach in the past three months. Pt reports she has the implant on the arm and doesn't get her period. Pt reports she being tired more and wants to be tested. Patient requests an excuse letter for work/school: No RETE CRUSHER LOADER OPERATOR documented in this encounter Plan of Treatment Upcoming Encounters Date Type Department Care Team (Late st Contact Info) Description 07/02/2023 8:05 AM CDT Telemedicine [facility] [address] [place], [place] [id number] Amelia Britton MD [address] [place] [address] documented as of this encounter Results * (ABNORMAL) UA with Microscopic: (04/04/2023 5:51 PM CONCRETE CRUSHER LOADER OPERATOR) Urine Color Yellow 04/04/2023 6:10 PM [facility] Urine Clarity Clear Clear 04/04/2023 6:10 PM [facility] Specific [place], Urine <=1.005(A) 1.005 - 1.030 04/04/2023 6:10 PM [facility] PH Urine 6.5 5.0 - 8.0 04/04/2023 6:10 PM [facility] Protein, Urine Qual (mg/dL) Negative Neg/Trace 04/04/2023 6:10 PM [facility] Glucose Urine Qual (mg/dL) Negative Negative 04/04/2023 6:10 PM [facility] Ketones, Urine (mg/dL) Negative Negative 04/04/2023 6:10 PM [facility] Urobilinogen, Urine (EU/dL) 0.2 <2.0 04/04/2023 6:10 PM [facility] Bilirubin Urine Negative Negative 04/04/2023 6:10 PM [facility] Blood, Urine Trace Neg/Trace 04/04/2023 6:10 PM [facility] Nitrite Urine Negative Negative 04/04/2023 6:10 PM [facility] Leukocyte Est. Negative Negative 04/04/2023 6:10 PM [facility] Red Blood Cells 0-3 0 - 3 /HPF 04/04/2023 6:10 PM [facility] White Blood Cells 0-5 0 - 5 /HPF 04/04/2023 6:10 PM [facility] Bacteria Occasional(A) None Seen /HPF 04/04/2023 6:10 PM [facility] Squamous Epithelial Cells Occasional None Seen, Occasional, Few /HPF 04/04/2023 6:10 PM [facility] Urine Non-blood Collection / Unknown 04/04/2023 5:51 PM CONCRETE CRUSHER LOADER OPERATOR 04/04/2023 5:51 PM [facility] Khanh Joya DO LAB_1 [facility] [address] [place] [address], [facility] * Test (Urine) - Collect in Lab (04/04/2023 5:51 PM CONCRETE CRUSHER LOADER OPERATOR) HCG, Urine Negative Negative 04/04/2023 5:56 PM CONCRETE CRUSHER LOADER OPERATOR [facility] Urine Non-blood Collection / Unknown 04/04/2023 5:51 PM CONCRETE CRUSHER LOADER OPERATOR 04/04/2023 5:51 PM CONCRETE CRUSHER LOADER OPERATOR Khanh KuoTorrez LAB_1 [facility] [address] [place] [address], [facility] documented in this encounter Visit Diagnoses Diagnosis No periods- Primary Absence of menstruation documented in this encounter Care Teams Mailroom Supervisor Relationship Specialty Start Date End Date No Primary/Referring, Phy PCP - General 07/12/21 4 documented as of this encounter
--- OUTSIDE RECORDS SUMMARY | 2023-06-09 03:52 | XMS_ITS | Encounter Summary ---
Author Name Unknown Organization [facility] Address [address] [place] [address] Care Team Providers Care Life Underwriter Name Role Phone Richard Ramachandran APRN, OPERATIONAL RISK MANAGER Primary Care Provide r Reason for Visit * Reason Comments Refill Encounter Details Date Type Department Care Team (Late Contact Info) Description 05/19/2023 Refill [facility] [address] [address] Amelia Britton MD [address] [place] [address] Refill Social History Tobacco Use Types Packs/Day [...] Upcoming Encounters Date Type Department Care Team ([facility] [address] Contact Info) Description 07/02/2023 8:05 AM CDT Telemedicine [facility] [address] [facility] [place] [address] Amelia Britton MD [address] [place] [address] documented as of this encounter Visit Diagnoses Diagnosis Mild mixed bipolar II disorder (HRC) Other bipolar disorders ALBERTO (generalized anxiety disorder) (HRC) Generalized anxiety disorder documented in this encounter Care Teams Life Underwriter Relationship Specialty Start Date End Date Richard Ramachandran APRN, OPERATIONAL RISK MANAGER [address] [place] [address] PCP - General Nurse Practitioner 05/10/23 documented as of this encounter
[2023-06-09 04:12] LABS: Appearance Urine Cloudy (Clear); Bilirubin Urine Negative (Negative); Blood Urine 2+ (Negative); Color Urine Yellow (Yellow); Glucose Urine Negative (Negative); Ketones Urine Negative (Negative); Leukocyte Esterase Urine 1+ (Negative); Nitrite Urine Negative (Negative); Protein Urine Negative (Negative); Specific Gravity Urine 1.025 (1.000-1.030); Urobilinogen Urine 0.2 (0.2-1.0)
[2023-06-09 04:21] LABS: Bacteria Urine Few; RBC Urine 0-2 (0-2); Squamous Epithelial Cell Urine Moderate (None-Few)
[2023-06-09] MEDS: IBUPROFEN 200 MG TABLET 600 MG PO (04:31)
[2023-06-09 05:00] LABS: Basophils Absolute Auto 0.03 K/uL (0.00-0.30); Basophils Percent Auto 0.3 % (0.0-3.0); Eosinophils Absolute Auto 0.13 K/uL (0.00-0.50); Eosinophils Percent Auto 1.5 % (0.0-7.0); Hematocrit 38.1 % (33.0-51.0); Immature Granulocytes Abs Auto 0.02 K/uL (0.00-0.30); Immature Granulocytes Pct Auto 0.2 %; Lymphocytes Absolute Auto 2.49 K/uL (0.90-2.90); Lymphocytes Percent Auto 28.2 % (20-44); Mean Corpuscular HGB Conc 34 gm/dL (32-36); Mean Corpuscular Hemoglobin 32 pg (26-34); Mean Corpuscular Volume 93 fL (80-100); Neutrophils Absolute Auto 5.45 K/uL (1.7-7.0); Neutrophils Percent Auto 61.8 % (42.0-72.0); Platelet Count* 252 K/uL (140-440); RDW Coefficient of Variation % 12.6 % (11.5-15.5); Red Blood Count 4.12 m/uL (4.00-5.20); White Blood Count* 8.83 K/uL (4.50-11.00)
[2023-06-09 05:02] LABS: Slide Review Reflex No
[2023-06-09 05:04] LABS: Ur HCG Qualitative* Negative (Negative)
[2023-06-09 05:13] LABS: Chloride* 108 mmol/L (96-114); Potassium* 3.5 mmol/L (3.6-5.1); Sodium* 136 mmol/L (135-149)
[2023-06-09 05:15] LABS: Creatinine* 0.7 mg/dL (0.5-1.5); Est. Creatinine Clearance* 107.01; Estimated Glomerular Filt Rate 124 ml/min
[2023-06-09 05:16] LABS: Anion Gap 4 mEq/L (7-15); Blood Urea Nitrogen* 17 mg/dL (5-24); Carbon Dioxide* 24 mmol/L (20-32); Glucose* 98 mg/dL (60-115)
[2023-06-09 05:17] LABS: Calcium* 9.4 mg/dL (8.4-10.6)
[2023-06-09 05:25] VITALS: BP 131/82; PULSE 49; RESP 18; TEMP 36.7; O2SAT 97
[2023-06-09 05:32] LABS: C Reactive Protein* < 0.5 mg/dL (0.5-1.0)
--- NOTE | 2023-06-09 07:04 | US_ITS ---
Patient: AJ CLAROS Facility:?[facility] Patient ID:?[id number] Site Patient ID:?[id number] Site :?[id number] Study:?US-Pelvis PELVIS TV-06/09/2023 9:01:54 AM Ordering Physician:?BEREKET DOS SANTOS M.D. Final Report: INDICATION: Pelvic pain. TECHNIQUE: Transvaginal pelvic ultrasound was performed. COMPARISON: CT abdomen and pelvis done 01/24/2018. Findings: The uterus measures 7.8 x 3.0 x 4.5 cm and is unremarkable. The endometrial stripe thickness measures 0.9 cm. The right ovary measures 3.3 x 2.7 x 2.2 cm. The left ovary measures 4.3 x 2.2 x 3.0 cm. There is no ovarian or adnexal mass. Arterial and venous Doppler flow is identified in both ovaries. There is no free fluid in the pelvis. IMPRESSION: No abnormality on pelvic ultrasound. Dictated by Ori Jones MD @ 06/09/2023 9:46:47 AM Signed by:?Ori Jones MD @06/09/2023 9:46:47 AM (Electronic Signature)
== END 2023-06-09 09:10 | disposition home or self-care (01) ==
PROVIDERS: Emergency Provider Family Medicine
DX: R10.2 Pelvic and perineal pain (principal)
CPT/HCPCS: 36415; 76830; 80048; 81001; 81025; 84702; 85025; 86140; 87086; 93976; 99283; 99284; A9270

== ENCOUNTER 2023-09-20 09:21 | Emergency (ER) | payer BC, SELFPAY ==
[2023-09-20 09:23] VITALS: BP 121/79; PULSE 50; RESP 18; TEMP 35.5; O2SAT 96; BMI 36.0
--- NOTE | 2023-09-20 10:23 | ED_ITS ---
HPI - General Adult General Time Seen by Provider: 10:24 Date Seen: 09/20/23 Chief complaint: Weakness Stated complaint: Dehydration Time Seen by Provider: 09/20/23 10:23 Source: patient and RN notes reviewed Mode of arrival: ambulatory Limitations: no limitations History of Present Illness HPI narrative: This 23-year-old female is ambulatory into the ED of her own accord with concern of feelings of we can dizziness. She states over the last 6 days she has just progressively felt more weak and dizzy. She has had some nausea, did have some emesis yesterday morning but no abdominal pain, no diarrhea or constipation. She has had no fevers or chills. She states she has been drinking copious water but her urine still is unclear, no dysuria, no hematuria. She has an IUD in place, had it placed about 4-5 months ago, has had no menstrual cycle for 2 months. She is not currently sexually active, does not believe there is a chance for . She did go off her gabapentin as she was out of it, she went back on it in the symptoms started. She states she has done that before though and had none of these symptoms. She is not been sick with anything like cough or cold symptoms. She did feel some shortness of breath this morning. She has no chest pain. Again no abdominal pain. She has had no sore throat no congestion. She states her mouth just feels very dry and she is thirsty. She feels like she is dehydrated despite drinking copious water for the last few days. Related Data Home Medications ?Medication ?Instructions ?Recorded ?Confirmed gabapentin 400 mg capsule 800 mg PO QPM 07/28/22 09/20/23 sertraline 50 mg tablet 50 mg PO DAILY 07/28/22 09/20/23 aripiprazole 10 mg tablet 10 mg PO DAILY 09/20/23 09/20/23 trazodone 50 mg tablet 50 mg PO QPM 09/20/23 09/20/23 Previous Rx's ?Medication ?Instructions ?Recorded ciprofloxacin HCl 500 mg tablet 500 mg PO BID 6 days #12 tabs 09/03/22 ondansetron 4 mg disintegrating 4 mg PO Q4-6H PRN nausea and 09/03/22 tablet vomiting #12 tabs Allergies Allergy/AdvReac Type Severity Reaction Status Date / Time oxycodone Allergy Intermediate Verified 09/20/23 09:30 PFSH PFSH Social History Smoking Status: Current every day smoker Do you use any of these nicotine containing products: Vaping Products Second hand tobacco smoke exposure: No How often do you have a drink containing alcohol: 2-3 times a week How many standard drinks containing alcohol do you have on a typical day: 5 or 6 How often do you have six or more drinks on one occasion: Weekly AUDIT-C Alcohol total score: 8 Non-prescribed substance use: marijuana (any form) and crack/cocaine Non-prescribed substance use details: has cd issues. has been to [employer]. service: No Exam Const: Vital Signs, click to edit/add: Vital Signs - 24 hr 09/20/23 09:23 09/20/23 10:30 Temperature 96 F L Pulse Rate [Right Pulse Oximeter] 50 L Respiratory Rate 18 Blood Pressure [Ri ght Upper Arm] 121/79 Pulse Oximetry 96 97 Oxygen Delivery Me thod Room Air This 23-year-old female is alert, interactive, no apparent distress. Very pleas ant, able to speak in complete sentences. Sclera clear, conjugate gaze. Dentition in good repair, oropharynx with normal mucosa. Neck is supple, no adenopathy. Lungs are clear, good air entry, no wheezing crackles. CV regular rate and rhythm, no murmur, normal S1-S2, no S3-S4. Abdomen is obese but soft, nontender, nondistended, really no tenderness or masses noted. No lower extremity edema. She is ambulatory into the ED of her own accord, did watch her walk to the bathroom after examination gait is normal. Documenting provider has reviewed patient's vital signs: yes Course Course ED Course: Will start an IV, give a L of normal saline. With her water drinking, electrolytes and glucose are certainly needed. Will do full complement of labs. This could be medication side effect from going back on the gabapentin having been off of it but she just takes 800 mg at bedtime. Patient does agree to do COVID testing, this certainly could be a viral illness. I do not think any imaging is necessary at this time is her exam does not suggest any specific etiology for imaging. Will do a D-dimer with her shortness of breath, if elevated obviously will undertake evaluation for that. Reevaluation(s) Time of Reevaluation #1: 12:06 Reevaluation #1: Patient has about half of the IV fluids in and is feeling better. Have reviewed her normal evaluation with labs. We discussed the problems that she is having with getting her gabapentin in a timely fashion. She certainly does sound like she is experiencing withdrawal symptoms and I do wonder if she is experiencing side effects from reinitiation of the medicine. Vital Signs Vital signs: Initial Vital Signs Temperature 96 F L 09/20/23 09:23 Temperature Source Temporal Artery Scan 09/20/23 09:23 Pulse Rate 50 L 09/20/23 09:23 Pulse Rhythm Regular 09/20/23 09:23 Respiratory Rate 18 09/20/23 09:23 Blood Pressure 121/79 09/20/23 09:23 Blood Pressure Mean 93 09/20/23 09:23 Blood Pressure Position Sitting 09/20/23 09:23 Pulse Oximetry 96 09/20/23 09:23 Oxygen Delivery Method Room Air 09/20/23 09:23 Vital Signs Temperature 96 F L 09/20/23 09:23 Pulse Rate 50 L 09/20/23 09:23 Respiratory Rate 18 09/20/23 09:23 Blood Pressure 121/79 09/20/23 09:23 Pulse Oximetry 96 09/20/23 09:23 Oxygen Delivery Method Room Air 09/20/23 09:23 Temperature 96 F L 09/20/23 09:23 Pulse Rate 50 L 09/20/23 09:23 Respiratory Rate 18 09/20/23 09:23 Blood Pressure 121/79 09/20/23 09:23 Pulse Oximetry 97 09/20/23 10:30 Oxygen Delivery Method Room Air 09/20/23 09:23 Medications Administered Medications: Discontinued Medications Generic Name Dose Route Start Last Admin Trade Name Freq PRN Reason Stop Dose Admin Sodium Chloride 1,000 mls @ 1,000 mls/hr 09/20/23 10:31 09/20/23 10:50 0.9 % Sodium Chloride 1000 Ml IV 09/20/23 11:30 1,000 mls/hr .Q1H GUTIERREZ Administration Medical Decision Making Lab Data Labs: Lab Results 09/20/23 09/20/23 Range/Units 10:45 11:26 WBC 9.84 (4.50-11.00) K/uL RBC 4.47 (4.00-5.20) m/uL Hgb 13.8 (12.0-16.0) gm/dL Hct 41.3 (33.0-51.0) % MCV 92 (80-100) fL MCH 31 (26-34) pg MCHC 33 (32-36) gm/dL RDW Coeff of Martha 12.8 (11.5-15.5) % Plt Count 255 (140-440) K/uL Neut % (Auto) 64.3 (42.0-72.0) % Lymph % (Auto) 27.9 (20-44) % Dent % (Auto) 6.1 (0.0-11.0) % Eos % (Auto) 1.0 (0.0-7.0) % Baso % (Auto) 0.5 (0.0-3.0) % Neut # (Auto) 6.32 (1.7-7.0) K/uL Lymph # (Auto) 2.75 (0.90-2.90) K/uL Dent # (Auto) 0.60 (0.00-0.90) K/UL Eos # (Auto) 0.10 (0.00-0.50) K/uL Baso # (Auto) 0.05 (0.00-0.30) K/uL Abs Immat Gran (auto) 0.02 (0.00-0.30) K/uL Imm/Tot Granulo (auto) 0.2 % D-Dimer Quant (PE/DVT) 0.15 (0.00-0.50) ug/ml VBG pH 7.390 (7.32-7.43) VBG pCO2 38 L (40-50) mmHG VBG pO2 48.1 H (25-47) mmHG VBG HCO3 23 (21-28) mmol/L Sodium 137 (135-149) mmol/L Potassium 4.0 (3.6-5.1) mmol/L Chloride 108 (96-114) mmol/L Carbon Dioxide 21 (20-32) mmol/L Anion Gap 8 (7-15) mEq/L BUN 7 (5-24) mg/dL Creatinine 0.7 (0.5-1.5) mg/dL Estimated Creat Clear 107.01 Estimated GFR 124 ml/min Glucose 97 (60-115) mg/dL Lactate 0.7 (0.5-1.9) mmol/L Calcium 9.1 (8.4-10.6) mg/dL Magnesium 2.2 (1.5-2.6) mg/dL Total Bilirubin 0.7 (0.1-1.5) mg/dL AST 28 (12-35) U/L ALT 22 (4-35) U/L Alkaline Phosphatase 68 (40-150) U/L Troponin I < 0.01 L (0.01-0.04) ng/mL C-Reactive Protein < 0.5 L (0.5-1.0) mg/dL NT-Pro-B Natriuret Pep 105 pg/mL Total Protein 7.2 (6.0-8.3) g/dL Albumin 4.5 (3.3-5.0) g/dL Urine Color Yellow (Yellow) Urine Appearance Clear (Clear) Urine pH 7.0 (5.0-8.5) Ur Specific [place] 1.015 (1.000-1.030) Urine Protein Negative (Negative) Urine Glucose (UA) Negative (Negative) Urine Ketones Negative (Negative) Urine Blood Trace-intact A (Negative) Urine Nitrite Negative (Negative) Urine Bilirubin Negative (Negative) Urine Urobilinogen 0.2 (0.2-1.0) Ur Leukocyte Esterase Negative (Negative) Urine RBC 0-2 (0-2) Urine WBC 5-10 A (0-5) Ur Squamous Epith Cells None (None-Few) Urine Bacteria Few A (None) Urine HCG, Qual Negative (Negative) SARS-CoV-2 (PCR) Negative SARS-CoV-2 (Negative) Influenza Type A (PCR) Negative PCR FLU A (Negative) Influenza Type B (PCR) Negative PCR FLU B (Negative) RSV (PCR) Negative PCR RSV (Negative) ECG Data Attestation: I personally reviewed and interpreted this ECG as follows: (Sinus rhythm at 60 beats per minute. PAC seen.) Prior ECG tracings: not available for review Discharge Plan Discharge Clinical Impression: Dizziness Patient Disposition: Home, Self-Care Condition: Stable Instructions: Dizziness (ED) Additional Instructions: I do wonder if your symptoms are possibly from going back on the gabapentin. I would talk to your psychiatrist in see if there is some way that you can be maintained on this consistently. This is not a medicine that I would typically recommend patient's be missing doses or going off and then restarting. There can be side effects with that and you are on a high enough dose that I do think you may be symptomatic with intermittent use. Otherwise, follow-up with your primary care provider in the next 3-5 days for ongoing symptoms. If you feel you are worsening or develop new or concerning symptoms at any point, can be re- evaluated here. Prescriptions: No Action gabapentin 400 mg capsule 800 mg PO QPM sertraline 50 mg tablet 50 mg PO DAILY ciprofloxacin HCl 500 mg tablet 500 mg PO BID 6 Days Qty: 12 0RF ondansetron 4 mg tablet,disintegrating 4 mg PO Q4-6H PRN (Reason: nausea and vomiting) Qty: 12 0RF trazodone 50 mg tablet 50 mg PO QPM aripiprazole 10 mg tablet 10 mg PO DAILY Follow Up/Referrals: Provider,Not a Local [Primary Care Provider] - Stand Alone Forms: Relevant e-solution Info Instructions
[2023-09-20 10:30] VITALS: O2SAT 97
[2023-09-20 10:50] LABS: HCO3 VBG 23 mmol/L (21-28); PCO2 VBG 38 mmHG (40-50); PO2 VBG 48.1 mmHG (25-47)
[2023-09-20] MEDS: 0.9 % SODIUM CHLORIDE 1000 ml 1,000 ML IV (10:50)
[2023-09-20 10:52] LABS: Lactate* 0.7 mmol/L (0.5-1.9)
--- OUTSIDE RECORDS SUMMARY | 2023-09-20 10:52 | XMS_ITS | Encounter Summary ---
Author Organization [employer] Address [address] [place] [address] Care Team Providers Care Thread Marker Name Role Phone Richard Ramachandran APRN, CNP Primary Care Provide r Reason for Visit * Reason Comments Refill Encounter Details Date Type Department Care Team (Late st Contact Info) Description 08/11/2023 Refill [facility] [address] [place] [address] Amelia Britton MD [address] [place] [address] Refill Social History Tobacco Use Types Packs/Day [...] as of this encounter Plan of Treatment Not on file documented as of this encounter Visit Diagnoses Diagnosis ALBERTO (generalized anxiety disorder) (HRC) Generalized anxiety disorder Mild mixed bipolar II disorder (HRC) Other bipolar disorders documented in this encounter Care Teams Thread Marker Relationship Specialty Start Date End Date Richard Ramachandran APRN, CNP [address] [place] [address] PCP - General Nurse Practitioner 05/10/23 documented as of this encounter
--- OUTSIDE RECORDS SUMMARY | 2023-09-20 10:52 | XMS_ITS | Encounter Summary ---
Author Organization [employer] Address [address] [place] [address] Care Team Providers Care Roller Stainer Name Role Phone Richard Ramachandran APRN, ANTIQUE JEWELRY REPAIRER Primary Care Provide r Reason for Visit * Reason Comments Refill Encounter Details Date Type Department Care Team (Late st Contact Info) Description 08/12/2023 Telephone [facility] [address] [facility] [place], [place] [address] Amelia Britton MD [address] [place] [address] Refill Social History Tobacco Use Types Packs/Day [...] Nursing Notes * Pricila Lopez RN - 08/13/2023 9:11 AM CDT Routing to provider as FYI only. * Lisa Swartz - 08/12/2023 11:15 AM CDT Pt is seeing a new psychiatrist tomorrow with [facility] * Rosalinda Katz RN - 08/12/2023 10:39 AM CDT Please see below message from Dr. Gay. Will route to [facility] to please connect with patient and offer f/u visit w/ Dr. Britton for future refills. Thank you! Rosalinda Katz RN 11/28/2022, 10:23 AM * Carmen Gay MD - 08/12/2023 10:37 AM CDT Refill approved. Patient needs to schedule follow up. Fiona Gay MD 08/12/2023, 10:37 AM * Tameka Rousseau RN - 08/12/2023 9:34 AM CDT Called patient. States she is changing provider's due to medication refill issues. She has an Appt scheduled tomorrow with new provider. She would like 1-2 days worth of medication for Gabapentin 400 mg tid and Sertraline 50 mg tab daily. Pt advised provider is out all week. Pt advised no guarantee Care Team provider will be able to write RXS for 1-2 days. Pt's last dose of Gabapentin was 08/10/23. Last dose of Sertraline was yesterday. Routed to Care Team provider to address refill request. * Adelina Quach - 08/12/2023 9:22 AM CDT Pt returning RN call, I advised the RN will call back when available * Tameka Rousseau RN - 08/12/2023 9:04 AM CDT Patient called [facility] requesting refill of Sertraline Zoloft 50 mg tablet and Gabapentin Neurontin 400 mg capsule. [facility] staff were unable to refills medications. Routed urgent message to RN. Patient Scheduled tomorrow at [facility] with Indigo Hale. Called patient. TRC. documented in this encounter Plan of Treatment Not on file documented as of this encounter Visit Diagnoses Diagnosis ALBERTO (generalized anxiety disorder) (HRC) Generalized anxiety disorder Mild mixed bipolar II disorder (HRC) Other bipolar disorders documented in this encounter Care Teams Roller Stainer Relationship Specialty Start Date End Date Richard Ramachandran APRN, ANTIQUE JEWELRY REPAIRER [address] [place] [address] PCP - General Nurse Practitioner 05/10/23 documented as of this encounter
--- OUTSIDE RECORDS SUMMARY | 2023-09-20 10:52 | XMS_ITS | Encounter Summary ---
Author Organization [employer] Address [address] [place] [address] Care Team Providers Care Radio Repairman Name Role Phone Richard Ramachandran APRN, DEPARTMENT SECRETARY Primary Care Provide r Reason for Visit * Reason Comments Refill gabapentin (NEURONTI N) 400 MG capsule [Pharmacy Med Name: GABAPENTIN 400MG CAPSULES] Encounter Details Date Type Department Care Team (Late st Contact Info) Description 09/18/2023 Refill [facility] [address] [place], [place] [id number] Amelia Britton MD [address] [place] [address] Refill (gabapentin (NEURONTIN) 400 MG capsule [Pharmacy Med Name: GABAPENTIN 400MG CAPSULES]) Social History Tobacco Use Types Packs/Day Years [...] disorder documented in this encounter Care Teams Radio Repairman Relationship Specialty Start Date End Date Richard Ramachandran APRN, DEPARTMENT SECRETARY [address] [place] [place] [address] PCP - General Nurse Practitioner 05/10/23 documented as of this encounter
--- OUTSIDE RECORDS SUMMARY | 2023-09-20 10:52 | XMS_ITS | Encounter Summary ---
Author Organization [facility] Address [address] [place] [address] Care Team Providers Care Ordnance Engineer Name Role Phone Richard Ramachandran APRN, OYSTER UNLOADER Primary Care Provide r Reason for Visit * Reason Onset Date Comments Refill FYI 09/18/2023 Encounter Details Date Type Department Care Team (Late st Contact Info) Description 09/18/2023 [facility] [address] [facility] [place] [address] Malcolm Viveros MD [address] [place], [place] [id number] Refill; FYI Social History Tobacco Use Types Packs/Day Years [...] as of this encounter Nursing Notes * Patricia Cintron RN - 09/18/2023 8:44 AM CDT Refill Request Denied: Requested Prescriptions Refused Prescriptions Disp Refills tretinoin (RETIN-A) 0.05 % cream [Pharmacy Med Name: TRETINOIN 0.05% CREAM 45GM] 45 g Sig: APPLY TOPICALLY TO THE AFFECTED AREA EVERY EVENING Refused By: PATRICIA CINTRON Reason for Refusal: Patient Needs An Appointment Action taken by Triage: Refill denied per protocol. Reason not refillable: Patient has not been seen in the recommended follow up interval. Last Visit Maximum visits displayed: 1 Date Type Department Provider Description 06/14/2021 Office Visit [facility] Malcolm Viveros MD Acne, unspecified acne type (Primary Dx); Compound nevus of... Follow-up interval per last visit note: Per last OV note She will let me know in several months ifnot improving. Date(s) of failed/cancelled Derm appt: None There are no future appointments scheduled for this specialty. Patricia Cintron RN 09/18/2023, 8:44 AM * Alexandru Martinez [facility] - 09/18/2023 3:46 AM CDT tretinoin (RETIN-A) 0.05 % cream [Pharmacy Med Name: TRETINOIN 0.05% CREAM 45GM] None Exists -> Unable to determine if patient is due for a renewal, please review. -> Medication cannot be delegated. -> A qualifying visit was not found within the last 2 years. Last qualifying visit: None Next scheduled visit: None Last ordered by MALCOLM VIVEROS S: 02/27/2023 (203 days ago) QTY: 45, Refills: 0, Sig: apply topically to the affected area every evening (unchanged) [employer] Embedded Refills, Reference: [id number], 09/18/2023 3:46:16 AM CDT, Pool: DermRefill RN ([id number]) documented in this encounter Plan of Treatment Not on file documented as of this encounter Visit Diagnoses Diagnosis Acne, unspecified acne type documented in this encounter Care Teams Ordnance Engineer Relationship Specialty Start Date End Date Richard Ramachandran, DEVELOPMENT COORDINATOR, OYSTER UNLOADER [address] [place] [address] PCP - General Nurse Practitioner 05/10/23 documented as of this encounter
--- OUTSIDE RECORDS SUMMARY | 2023-09-20 10:52 | XMS_ITS | Encounter Summary ---
Author Organization [employer] Address [address] [place] [address] Care Team Providers Care Enchilada Maker Name Role Phone Richard Ramachandran APRN, SENIOR ENTERPRISE ARCHITECT Primary Care Provide r Reason for Visit * Reason Comments MULTIPLE PROBLEMS Encounter Details Date Type Department Care Team (Late st Contact Info) Description 09/18/2023 10:40 AM CDT Office Visit [facility] [address] [place] [address] Nemo Hendricks, PADestiny [address] [place], [place] [phone] Vaginal odor; Skin infection Social History Tobacco Use Types Packs/Day Years [...] Reading Time Taken Comments Blood Pressure 124/71 09/18/2023 10:28 AM CDT Pulse 61 09/18/2023 10:28 AM CDT Temperature 36.9 ??C (98.4 ??F) 09/18/2023 10:28 AM C DT Respiratory Rate 18 09/18/2023 10:28 AM CDT Oxygen Saturation 99% 09/18/2023 10:28 AM CDT Inhaled Oxygen Concentration - - Weight - - Height - - Body Mass Index - - documented in this encounter Progress Notes * Nemo Hendricks PA-C - 09/18/2023 10:40 AM CDT Nurse Triage Note Pt states she was seen at [facility] a week and a half ago for possible yeast infection in belly button; was prescribed a topical medication, but it is not working. Pt states endorses itching and clear discharge that dries brownish - has foul odor - pt states not worsening, but not getting better. Pt states she would also like to do a BV swab while she is here; notices a bleach type smell. Pt prefers to do self swab. Provider Note [facility] Patient: Erika Snowden Date of : 2000 (23 y.o.) Subjective Chief Complaint: Chief Complaint Patient presents with MULTIPLE PROBLEMS History of Present Illness: Erika Snowden is a 23 y.o.female who presents with infection of the belly button. She says she was seen about 2 weeks ago in the urgent care due to belly button infection. It was thought to be yeast and she was prescribed ketoconazole cream. She says she has had no improvement since that time. She describes the discharge as clear and then dries brownish but also has a foul odor. She notes redness inside the belly button as well. She also would like to be swab for BV as she has had a vaginal odor. Denies concern for STDs at this time as she just did STD testing 2 weeks ago. Past Medical History: Patient Active Problem List Diagnosis Allergic rhinitis due to pollen ALBERTO (generalized anxiety disorder) (HRC) Bipolar 1 disorder (HRC) Moderate episode of recurrent major depressive disorder (HRC) Dysmenorrhea Mild mixed bipolar II disorder (HRC) Alcohol use disorder, moderate, in early remission (HRC) Substance dependence, in remission (HRC) Dyssomnia Borderline personality disorder (HRC) Other specified persistent mood disorders (HRC) IUD (intrauterine device) in place Adverse Drug Reactions: Lamotrigine, Oxycodone, and Wellbutrin [bupropion] Medications: ARIPiprazole, buPROPion, clindamycin, gabapentin, ketoconazole, levonorgestrel, mupirocin, naltrexone, ondansetron, sertraline, traZODone, and tretinoin Family History: Family History Problem Relation Age of Onset Allergies Mother Allergies Father Amblyopia/Strabismus Negative Family History Blindness Negative Family History Cataract Negative Family History Glaucoma Negative Family History Macular Degeneration Negative Family History Retinal Detachment Negative Family History Cancer, Breast Negative Family History Cancer, Colon Negative Family History Cancer, Ovary Negative Family History Social History: Social History Tobacco Use Smoking status: Former Current packs/day: 0.25 Average packs/day: 0.3 packs/day for 1 year (0.3 ttl pk-yrs) Types: Cigarettes Smokeless tobacco: Never Tobacco comments: juuls Vaping Use Vaping status: Every Day Substances: Flavoring, Nicotine-salt Substance Use Topics Alcohol use: Not Currently Drug use: Not Currently Types: Marijuana Smoking: Social History Tobacco Use Smoking Status Former Current packs/day: 0.25 Average packs/day: 0.3 packs/day for 1 year (0.3 ttl pk-yrs) Types: Cigarettes Smokeless Tobacco Never Tobacco Comments juuls Review of Systems: Negative except for those items mentioned in the HPI. Objective Physical Exam: Vitals Signs: BP 124/71 (BP Location: Left Arm, BP Cuff Size: Regular - Long) Pulse 61 Temp 36.9 ??C (98.4 ??F) (Oral) Resp 18 SpO2 99% General: NAD Skin: Mucous membranes are moist, no sign of dehydration. Heart: RR without murmurs, rubs, or gallops. Abdomen: The abdomen was flat, soft and nontender without guarding rebound or masses. Umbilicus with erythema. Currently no drainage. Genitourinary exam: Deferred. Laboratory Testing: No results found for any visits on 09/18/23. Assessment 1. Vaginal odor 2. Skin infection Plan Patient here today with belly button drainage that is not improved with ketoconazole cream. Will treat for bacterial cause with Bactroban as written below. Vaginitis panel pending. We will call with positive results. If positive, abstain until treatment is finished. Avoid perfumes and strong smelling lotions detergents etc. Follow up with primary provider if this persists or becomes recurrent. RTC p.r.n. Patient Discharge Medications & Instructions: Medications Prescribed this Visit Disp Refills Start End mupirocin (BACTROBAN) 2 % ointment 22 g 0 09/18/2023 -- Apply to affected area twice a day for 10 days. Discharge Instructions None Nemo Hendricks PA-C documented in this encounter Nursing Notes * Crystal Lamb, RN - 09/18/2023 10:40 AM CDT Pt states she was seen at [facility] a week and a half ago for possible yeast infection in belly button; was prescribed a topical medication, but it is not working. Pt states endorses itching and clear discharge that dries brownish - has foul odor - pt states not worsening, but not getting better. Pt states she would also like to do a BV swab while she is here; notices a bleach type smell. Pt prefers to do self swab. documented in this encounter Plan of Treatment Not on file documented as of this encounter Procedures Procedure Name Priority Date/Time Associated Diagnosis Comments VAGINITIS PANEL Routine 09/18/2023 10:39 AM CDT Vaginal odor documented in this encounter Results * Vaginitis Panel (09/18/2023 10:39 AM CDT) Bacterial Vaginosis Negative Negative 09/19/2023 1:30 AM CDT ON LICENSE OF [facility] Liyah species Negative Negative 1:30 AM CDT [facility] Liyah glabrata Negative Negative 09/19/2023 1:30 AM CDT [facility] Trichomonas vaginalis Negative Negative 09/19/2023 1:30 AM CDT ON LICENSE OF [facility] Swab STD SPECIMEN FROM VAGINA / Unknown Non-blood Collection / Unknown 09/18/2023 10:39 AM CDT 09/18/2023 11:47 AM CDT Narrative [facility] - 09/19/2023 1:30 AM CDT Test performed by Machine Rough Rounder Mediated Amplification (TMA). Nemo Hendricks PA-C LAB_1 [facility] [address] documented in this encounter Visit Diagnoses Diagnosis Vaginal odor Unspecified symptom associated with female genital organs Skin infection Unspecified local infection of skin and subcutaneous tissue documented in this encounter Care Teams Enchilada Maker Relationship Specialty Start Date End Date Richard Ramachandran APRN, SENIOR ENTERPRISE ARCHITECT [address] [place] [address] PCP - General Nurse Practitioner 05/10/23 documented as of this encounter
--- OUTSIDE RECORDS SUMMARY | 2023-09-20 10:52 | XMS_ITS | Encounter Summary ---
Author Organization [employer] Address [address] [place] [address] Care Team Providers Care Band Top Maker Name Role Phone Richard Ramachandran APRN, RESIN REMOVER Primary Care Provide r Reason for Visit * Reason Comments Test Request Encounter Details Date Type Department Care Team (Late st Contact Info) Description 08/27/2023 6:20 PM CDT Office Visit [facility] [facility] [address] [place] [address] [place] [address] [place] [address] Follow-up exam after treatment; Frequency of urination; Amenorrhea Social History Tobacco Use Types Packs/Day Years [...] Sign Reading Time Taken Comments Blood Pressure 128/75 08/27/2023 5:49 PM CDT Pulse 61 08/27/2023 5:49 PM CDT Temperature 36.6 ??C (97.9 ??F) 08/27/2023 5:49 PM CD T Respiratory Rate 18 08/27/2023 5:49 PM CDT Oxygen Saturation 94% 08/27/2023 5:49 PM CDT Inhaled Oxygen Concentration - - Weight - - Height - - Body Mass Index - - documented in this encounter Progress Notes * Nacho Hong MD - 08/27/2023 6:20 PM CDT Patient presents with multiple concerns. She was diagnosed with gonorrhea about 2 months ago and would like to be rechecked, she is having some vaginal discharge and would like to be checked for BV, patient requesting self-swab. She was also exposed to COVID a few days ago and would like to be tested for that as well. Patient requests an excuse letter for work/school: No SUBJECTIVE: Erika Snowden is a 23 y.o.female Chief Complaint: Chief Complaint Patient presents with Test Request HPI: 23 years old female she is coming today to clinic for follow-up, 2 months ago she did hadgonorrhea, she was checked also for other STDs were negative patient was treated was recommended tofollow-up in 2 months for follow- up rechecked, patient she is having some vaginal discharge hold like to be checked for BV. She stated that she was exposed to COVID couple days ago but no symptom., and she want have also additional test. Reviewed the system above all other negative Past medical history reviewed as below ROS: Complete ROS was negative other than what was cited above. Social History: Social History Tobacco Use Smoking status: Former Current packs/day: 0.25 Average packs/day: 0.3 packs/day for 1 year (0.3 ttl pk-yrs) Types: Cigarettes Smokeless tobacco: Never Tobacco comments: juuls Vaping Use Vaping status: Every Day Substances: Flavoring, Nicotine-salt Substance Use Topics Alcohol use: Not Currently Drug use: Not Currently Types: Marijuana Past Medical History: Patient Active Problem List [...] Wellbutrin [bupropion] Medications: ARIPiprazole, buPROPion, clindamycin, gabapentin, levonorgestrel, naltrexone, ondansetron, sertraline, traZODone, and tretinoin OBJECTIVE: Vital Signs: BP 128/75 (BP Location: Right Arm, BP Cuff Size: Large) Pulse 61 Temp 36.6 ??C (97.9 ??F) (Tympanic) Resp 18 SpO2 94% . General: Vital signs stable alert oriented she does not seems to be any distress HEENT: Negative Lymphatic: No enlarged lymph Chest: Clear Heart: Regular Abdomen: Obese soft no rebound no guarding no mass no tenderness no pelvic exam Musculoskeletal: Joints symmetrical for range of motion active passive pulse reflex normal Skin: No rash Neurological: No focal deficits Psychiatric: As above Labs: @EDLABS@ X-Rays: No results found. ASSESSMENT: 1. Follow-up exam after treatment 2. Frequency of urination 3. Amenorrhea GC test done pending BV pending UA small blood she had it before otherwise negative test negative PLAN: Patient agree at this time will wait and watch until we get the result of the other lap any concernquestion back to the clinic if any of the lap positive we will treated accordingly not improved additional symptom back to the clinic or see primary doctor anytime she agree @EDMEDS@ Medications Prescribed this Visit None Discharge instructions are on file. The patient was discharged ambulatory and in stable condition. documented in this encounter Nursing Notes * Erin Dorman RN - 08/27/2023 6:20 PM CDT Patient presents with multiple concerns. She was diagnosed with gonorrhea about 2 months ago and would like to be rechecked, she is having some vaginal discharge and would like to be checked for BV, patient requesting self-swab. She was also exposed to COVID a few days ago and would like to be tested for that as well. Patient requests an excuse letter for work/school: No documented in this encounter Plan of Treatment Not on file documented as of this encounter Procedures Procedure Name Priority Date/Time Associated Diagnosis Comments URINALYSIS ROUTINE, MICRO/CULTURE IF POS STAT 08/27/2023 6:14 PM CDT Follow-up exam after treatment Frequency of urination VAGINITIS PANEL Routine 08/27/2023 6:14 PM CDT Follow-up exam after treatment Frequency of urination CHLAMYDIA & GC (14 YEARS & OLDER) Routine 08/27/2023 6:14 PM CDT Follow-up exam after treatment Frequency of urination TEST (URINE) STAT 08/27/2023 6:14 PM CDT Follow-up exam after treatment Frequency of urination UA MICRO STAT 08/27/2023 6:14 PM CDT Follow-up exam after treatment Frequency of urination documented in this encounter Results * Urine Microscopic Evaluation: Clean Catch (08/27/2023 6:14 PM CDT) Red Blood Cells 0-3 0 - 3 /HPF 08/27/2023 6:33 PM CDT [facility] White Blood Cells 0-5 0 - 5 /HPF 08/27/2023 6:33 PM CDT [facility] Bacteria None Seen None Seen /HPF 08/27/2023 6:33 PM CDT [facility] Squamous Epithelial Cells Occasional None Seen, Occasiona l, Few /HPF 08/27/2023 6:33 PM CDT [facility] Urine URINE SPECIMEN COLLECTION, CLEAN CATCH / Unknown Non-blood Collection / Unknown 08/27/2023 6:14 PM CDT 08/27/2023 6:22 PM CDT Nacho Hong MD LAB_1 [facility] [address] [place] [address], [facility] * Test (Urine) - Collect in Lab (08/27/2023 6:14 PM CDT) Pathologist [facility] HCG, Urine Negative Negative 08/27/2023 6:27 PM CDT [facility] Urine Non-blood Collection / Unknown 08/27/2023 6:14 PM CDT 08/27/2023 6:23 PM CDT Nacho Hong MD LAB_1 [facility] [address] [place] [address] * (ABNORMAL) Urinalysis Routine, Micro/Culture if Pos: Clean Catch (08/27/2023 6:14 PM CDT) [facility] Urine Culture Comment Urinalysis results do not meet criteria for urine culture reflex. 08/27/2023 6:33 PM T [facility] Urine Color Yellow 08/27/2023 6:33 PM T [facility] Urine Clarity Clear Clear 08/27/2023 6:33 PM T [facility] Specific Rebecca, Urine 1.015 1.005 - 1.030 08/27/2023 6:33 PM T [facility] PH Urine 7.0 5.0 - 8.0 08/27/2023 6:33 PM T [facility] Protein, Urine Qual (mg/dL) Negative Neg/Trace 08/27/2023 6:33 PM [facility] Glucose Urine Qual (mg/dL) Negative Negative 08/27/2023 6:33 PM T [facility] Ketones, Urine (mg/dL) Negative Negative 08/27/2023 6:33 PM T [facility] Urobilinogen, Urine (EU/dL) 0.2 <2.0 08/27/2023 6:33 PM T [facility] Bilirubin Urine Negative Negative 08/27/2023 6:33 PM T [facility] Blood, Urine Small(A) Neg/Trace 08/27/2023 6:33 PM T [facility] Nitrite Urine Negative Negative 08/27/2023 6:33 PM T [facility] Leukocyte Est. Negative Negative 08/27/2023 6:33 PM [facility] Urine Source Clean Catch 08/27/2023 6:33 PM CDT [facility] Urine URINE SPECIMEN COLLECTION, CLEAN CATCH / Unknown Non-blood Collection / Unknown 08/27/2023 6:14 PM CDT 08/27/2023 6:22 PM CDT Nacho Hong MD LAB_1 [facility] [address] [place] [address] * Vaginitis Panel (Includes Bacterial Vaginosis, Liyah Species, Liyah Glabrata and Trichomonas Vaginalis.) (08/27/2023 6:14 PM CDT) Pathologist [facility] Bacterial Vaginosis Negative Negative 08/28/2023 12:15 PM CDT [facility] Liyah species Negative Negative 12:15 PM CDT [facility] Liyah glabrata Negative Negative 08/28/2023 12:15 PM CDT [facility] Trichomonas vaginalis Negative Negative 08/28/2023 12:15 PM CDT [facility] Swab STD SPECIMEN FROM VAGINA / Unknown Non-blood Collection / Unknown 08/27/2023 6:14 PM CDT 08/27/2023 6:22 PM CDT Narrative [facility] - 08/28/2023 12:15 PM CDT Test performed by [employer] Mediated Amplification (TMA). Nacho Hong MD LAB_1 Performing Organization Address City/[facility]/ZIP Co de Phone Number [facility] [id number] [place] [address] * Chlamydia & GC (14 Years and Older): Vagina (08/27/2023 6:14 PM CDT) Chlamydia Trachomatis STD Not Detected Not Detected 08/28/2023 1:27 PM CDT [facility] N. gonorrhoeae STD Not Detected Not Detected 08/28/2023 1:27 PM CDT [facility] Swab STD SPECIMEN FROM VAGINA / Unknown Non-blood Collection / Unknown 08/27/2023 6:14 PM CDT 08/27/2023 6:22 PM CDT Narrative [facility] - 08/28/2023 1:27 PM CDT Test performed by [employer] Workers Mediated Amplification (TMA). Nacho Hong MD LAB_1 [facility] [address] [address] documented in this encounter Visit Diagnoses Diagnosis Follow-up exam after treatment Unspecified follow-up examination Frequency of urination Urinary frequency Amenorrhea Absence of menstruation documented in this encounter Care Teams Band Top Maker Relationship Specialty Start Date End Date Richard Ramachandran APRN, RESIN REMOVER [address] [place] [address] PCP - General Nurse Practitioner 05/10/23 documented as of this encounter
--- OUTSIDE RECORDS SUMMARY | 2023-09-20 10:52 | XMS_ITS | Encounter Summary ---
Author Organization [employer] Address [address] [place] [address] Care Team Providers Care Tearoom Hostess Name Role Phone Richard Ramachandran APRN, FUR FINISHER SEAMSTRESS Primary Care Provide r Reason for Visit * Procedure/Equipment (Routine) - Pending Review Specialty Diagnoses / Procedures Referred By Contperfecto t Referred To Contact Diagnoses Acute nonintractable headache, unspecified headache type Procedures CT Head WO IV Cont Vlad Swenson PA-C [address] [place] [address] Referral ID Status Reason Start Date Expiration Date V isits Requested Visits Authorized [id number] Pending Review 09/06/2023 12/05/2024 1 1 Encounter Details Date Type Department Care Team (Latest Contact Info) Description 09/06/2023 11:40 AM CDT Ancillary [place] [address] [place] [address] Vlad Swenson PA-C [address] [place] [phone] Acute nonintractable headache, unspecified headache type Social History Tobacco Use Types Packs/Day Years [...] Procedure Name Priority Date/Time Associated Diagnosis Comments CT HEAD WO IV CONT STAT 09/06/2023 11 :38 AM CDT Acute nonintractable headache, unspecified headache type documented in this encounter Results * CT Head WO IV Cont (09/06/2023 11:38 AM CDT) Anatomical Region Laterality Modality Head Computed Tomogra phy 09/06/2023 11:2 5 AM CDT Impressions 09/06/2023 11:49 AM CDT COMPARISON: ??None. TECHNIQUE: ??Images of the head were obtained without contrast. FINDINGS: ??No hemorrhage, hydrocephalus, herniation, or mass effect. Rocha-white matter differentiation remains preserved. Visualized paranasal sinuses and mastoid air cells are clear. No acute bony abnormality. IMPRESSION: ??No suspected acute intracranial pathology. Narrative Procedure Note Loretta Coulter MD - 09/06/2023 IMPRESSION COMPARISON: None. TECHNIQUE: Images of the head were obtained without contrast. FINDINGS: No hemorrhage, hydrocephalus, herniation, or mass effect.Rocha-white matter differentiation remains preserved. Visualized paranasalsinuses and mastoid air cells are clear. No acute bony abnormality. IMPRESSION: No suspected acute intracranial pathology. Vlad Swenson PA-C RAD CT documented in this encounter Visit Diagnoses Diagnosis Acute nonintractable headache, unspecified headache type documented in this encounter Care Teams Tearoom Hostess Relationship Specialty Start Date End Date Richard Ramachandran, HARP ACTION ASSEMBLER, FUR FINISHER SEAMSTRESS [address] [place] [address] PCP - General Nurse Practitioner 05/10/23 documented as of this encounter
--- OUTSIDE RECORDS SUMMARY | 2023-09-20 10:52 | XMS_ITS | Encounter Summary ---
Author Organization [employer] Address [address] [place] [address] Care Team Providers Care Cane Furniture Maker Name Role Phone Richard Ramachandran APRN, ADRIANNE Primary Care Provide r Reason for Visit * Reason Comments DIZZINESS Encounter Details Date Type Department Care Team (Late st Contact Info) Description 09/20/2023 Nurse Triage [facility] [place] [address] [place], [place] [phone] Richard Ramachandran APRN, BELL ATTENDANT [address] [place] [address] DIZZINESS Social History Tobacco Use Types Packs/Day Years [...] as of this encounter Nursing Notes * Tomasa Helm RN - 09/20/2023 9:00 AM CDT Situation/Background : Pt reports dizziness and headache x 5 days. She feels dehydrated and has been drinking extra water and her urine is still dark yellow. Pt reports she urinates about 7 times per day. Her headache is constant and she rates the pain 7/10. She can walk without support. Pt reports she tripped and fell afew days ago while walking up stairs and this is unusual for her. Pt reports she ran out of her gabapentin prescription for about 4 days and then restarted it 5 days ago and that's when her symptoms began. She has intermittent blurry vision. Pt reports at night her heart beats rapidly. Speaking clearly, coherently and in full sentences. Pt denies severe trouble breathing, severe dizziness, overdose of medications, current blurry vision and fainting. Reviewed pertinent medical history and medications as they relate to call: Yes Reason for Disposition SEVERE headache or neck pain Protocols used: [id number] documented in this encounter Plan of Treatment Not on file documented as of this encounter Visit Diagnoses Not on filedocumented in this encounter Care Teams Cane Furniture Maker Relationship Specialty Start Date End Date Richard Ramachandran, SPECIAL WEAPONS UNIT OFFICER, BELL ATTENDANT [address] [place] [address] PCP - General Nurse Practitioner 05/10/23 documented as of this encounter
--- OUTSIDE RECORDS SUMMARY | 2023-09-20 10:52 | XMS_ITS | Clinical Summary ---
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 (RPR) Non Reactive Non Reactive 07/03/2023 10:02 AM CDT [facility] Comment: Rapid Plasma Reagin screening test is Non-Reactive. No further reflex testing is required. Performed By: [facility] [address] [place] [address] Acid Leveler: Colten Hunt MD, PhD CLIA Number: [id number] Blood Venipuncture / Unknown 07/01/2023 12:25 PM CDT 07/01/2023 12:40 PM CDT Earnestine Jennings MD LAB_1 Performing Organization Address City/[facility]/ZIP Co de Phone Number [facility] [address] [place], [place] [address] [place] [address] * HIV 1/2 Ag/Ab 4th Generation (07/01/2023 12:25 PM CDT) [facility] HIV 1/2 Antigen/Antib kaylene (4th generation) Negative (Non Reactive) Negative (Non Reactive) 07/01/2023 8:24 PM CDT [facility] Comment:HIV-1 p24 Antigen an d HIV-1/HIV-2 Antibody not detected Blood Venipuncture / Unknown 07/01/2023 12:25 PM CDT 07/01/2023 12:40 PM CDT Earnestine Jennings MD LAB_1 Performing Organization Address [facility] de Phone Number [facility] [address] [place] [address] * Hepatitis C Antibody, with Reflex (07/01/2023 12:25 PM CDT) Pathologist [facility] Hepatitis C Antibody Negative (Non Reactive) Negative (Non Reactive) 07/01/2023 8:24 PM CDT [facility] Comment:Antibodies to HCV no t detected. Does not exclude the possiblity of exposure to HCV. Blood Venipuncture / Unknown 07/01/2023 12:25 PM CDT 07/01/2023 12:40 PM CDT Earnestine Jennings MD LAB_1 Performing Organization Address [facility] Phone Number [facility] [address] [place] [address] * Hepatitis B Surface Antigen (07/01/2023 12:25 PM CDT) Pathologist [facility] Hepatitis B Surface Antigen Negative (Non Reactive) Negative (Non Reactive) 07/01/2023 8:40 PM CDT [facility] Blood Venipuncture / Unknown 07/01/2023 12:25 PM CDT 07/01/2023 12:40 PM CDT Earnestine Jennings MD LAB_1 Performing Organization Address [facility] Phone Number [facility] [address] [place] [address] * Trichomonas vaginalis, Molecular Detection, Endocervix/Vagina (14 years and older) (06/20/2023 10:56 AM CDT) [facility] Trich Vaginalis Amplified Not Detected Not Detected 06/21/2023 12:40 PM CDT [facility] Swab STD SPECIMEN FROM VAGINA / Unknown Non-blood Collection / Unknown 06/20/2023 10:56 AM CDT 06/20/2023 11:14 AM CDT Narrative [facility] - 06/21/2023 12:40 PM CDT Test performed by Boomboat Operator Mediated Amplification (TMA). Earnestine Jennings MD LAB_1 [facility] [address] * PAP Test (06/20/2023 10:56 AM CDT) Case Report Pap ? Case: [id number] ? Authorizing Provider: ??Earnestine Jennings MD ? Collected: ? 06/20/2023 1056 ? Ordering Location: ? [facility] ? Received: ?06/20/2023 1113 ? Services-INSTRUMENT AND CONTROLS TECHNICIAN ? First Screen: ?Barb Robin ? Specimen: ?Pap Test, Routine, Cervix/Endocervix ? 07/09/2023 2:00 PM CDT [facility] Pap Specimen Adequacy Satisfactory for evaluation, endocervical/mark sformation zone component present. 07/09/2023 2:00 PM CDT [facility] Pap Interpretation (NILM) Negative for intraepithelial lesion or malignancy. 07/09/2023 2:00 PM CDT [facility] Pap Disclaimer The Pap test is a screening test to aid in the detection of cervical and vaginal cancers and their precursor lesions. It is not a diagnostic procedure and should not be used as the sole means of detecting malignancy. Both false-positive and false-negative results may occur. 07/09/2023 2:00 PM CDT [facility] Gross Description The specimen is received in SurePath fixative and properly labeled. 1 Pap-stained SurePath slide is prepared. 07/09/2023 2:00 PM CDT [facility] Embedded Images 2:00 PM CDT [facility] Other Specimen Type ENTIRE ENDOCERVIX / Unknown 06/20/2023 10:56 AM CDT 06/20/2023 11:13 AM CDT Comment:LMP: Patient's last menstrual period was 06/02/2023 (approximate). Earnestine Jennings MD LAB PATHOLOGY [facility] [address] [place] [address], [facility] from Last 3 Months Advance Directives * Full Code (Latest Code Status on File) Date Activated Date Inactivated Comments 07/12/2021 10:23 PM 07/16/2021 12:32 PM * Full Code Date Activated Date Inactivated Comments 09/15/2014 8:46 AM 09/15/2014 2:44 PM Care Teams Tugboat Dispatcher Relationship Specialty Start Date End Date Richard Ramachandran, BRUSH TRIMMING MACHINE SETTER, OBSTETRICS SCRUB NURSE [address] [place] [address] PCP - General Nurse Practitioner 05/10/23
--- OUTSIDE RECORDS SUMMARY | 2023-09-20 10:52 | XMS_ITS | Clinical Summary ---
Author Organization [facility] Address [place], [place] [address] Care Team Providers Care Order Make Up Clerk Name Role Phone [facility] Primary Care Provider Unavailabl e Clinic, No Pcp Or Unavailable Unavailable Allergies Active Allergy Reactions Criticality Noted Date Comments Bupropion Other - Describe In Comment Field 12/15/2018 Suicidal thoughts. Lamotrigine Hives High 03/04/2015 Oxycodone Nausea And Vomiting 02/10/2015 Medications Medication Sig Dispensed Refills Start Date End Date Status clindamycin 1% (CLEOCIN-T) 1 % lotion APPLY TOPICALLY TO THE AFFECTED AREA DAILY 10/26/2021 Active levonorgestrel (MIRENA) 20 mcg/24 hours (8 yrs) 52 mg intrauterine device (IUD) Inject 1 Each intrauterine. 06/20/2023 2 Active ondansetron (ZOFRAN ODT) 4 mg disintegrating tablet Take 4 mg by mouth every 8 hours if needed. 07/31/2023 Active gabapentin (NEURONTIN) 400 mg capsuleIndications:G AD (generalized anxiety disorder) Take 1 Capsule (400 mg) by mouth three times daily. 90 Capsule 1 09/17/2023 Active naltrexone (REVIA) 50 mg tabletIndications:Al cohol use disorder, moderate, in early remission (HC) Take 1 Tablet (50 mg) by mouth once daily. 30 Tablet 1 09/17/2023 Active sertraline (ZOLOFT) 50 mg tabletIndications:GA D (generalized anxiety disorder) Take 1.5 Tablets (75 mg) by mouth once daily. 45 Tablet 1 09/17/2023 Active traZODone (DESYREL) 50 mg tabletIndications:GA D (generalized anxiety disorder) Take 1 Tablet (50 mg) by mouth at bedtime if needed for Sleep. 30 Tablet 1 09/17/2023 Active gabapentin (NEURONTIN) 400 mg capsuleIndications:G AD (generalized anxiety disorder) Take 1 Capsule (400 mg) by mouth three times daily. 90 Capsule 08/13/2023 4 Discontinue d(Reorder (E-cancel not sent)) naltrexone (REVIA) 50 mg tabletIndications:Al cohol use disorder, moderate, in early remission (HC) Take 1 Tablet (50 mg) by mouth once daily. 30 Tablet 08/13/2023 4 Discontinue d(Reorder (E-cancel not sent)) traZODone (DESYREL) 50 mg tabletIndications:GA D (generalized anxiety disorder) Take 1 Tablet (50 mg) by mouth at bedtime if needed for Sleep. 30 Tablet 08/13/2023 4 Discontinue d(Reorder (E-cancel not sent)) sertraline (ZOLOFT) 50 mg tabletIndications:GA D (generalized anxiety disorder) Take 1.5 Tablets (75 mg) by mouth once daily. 45 Tablet 08/13/2023 4 Discontinue d(Reorder (E-cancel not sent)) Active Problems Problem Noted Date Diagnosed Date ALBERTO (generalized anxiety disorder) 08/13/2023 Depression 08/13/2023 Alcohol use disorder, moderate, in early remissi on 08/13/2023 H/O borderline personality disorder 08/13/2023 Substance dependence, in remission 07/05/2023 Encounters Date Type Department Care Team Description 09/19/2023 Refill [facility] [address] [place] [address] Marisol Hale NP Refill Request (Naltrexone) 09/18/2023 Refill [facility] [address] [place] [address] Marisol Hale NP Refill Request (Trazodone) 09/17/2023 12:45 PM CDT Telemedicine [facility] [address] [place] [address] Marisol Hale NP Follow Up; Medication Management (feeling, good, I just need some refills on my medications, then I'll be good) 09/17/2023 Refill [facility] [address] [place] [address] Marisol Hale NP Refill Request (Gabapentin, Sertraline) 08/29/[address] [address] Marisol Hale NP Prior Authorization (sertraline (ZOLOFT) 50 mg tablet Approved July 31, 2023 to August 29, 2024) 08/13/2023 1:15 PM CDT Office Visit [facility] [address] [place] [address] Marisol Hale NP Mental Health Intake; Medication Management (feeling, pretty good) 08/13/2023 Travel 07/23/2023 10:00 AM CDT Office Visit [address] [address] Cat Golden, [facility] Visit 07/23/2023 Travel 07/15/[address] [address] Peter Merritt [facility] Late Cancel Appointment 07/05/2023 2:20 PM CDT Office Visit [address] [address] Jennifer Zhou MD Medication Management; Referral (psychiatry ) 07/05/2023 Travel from Last 3 Months Immunizations Name Administration Dates Next Due DTaP 03/23/2004,1999,1999 ,1999 DTaP-HIB (TriHIBIT) 09/17/2000 HIB PRP-T (ActHIB,Hiberix) 1999,1999 ,1999 Hepatitis A (Adult) 03/09/2019 Hepatitis A (Peds) 09/21/2011,09/13/2009 Hepatitis B (Adult) 03/09/2019,02/09/2000,1999,1999 Human Papilloma Virus Vaccine 03/24/2012, 012,09/21/2011 Inactivated Polio Vaccine 03/23/2004,02/09/2000, 1999,1999 Influenza A (H1N1), Inactivated 01/27/2009 Influenza Virus, Unspecified 12/05/2012, 01/27/2009,01/27/2009,11/29/2006 ,11/29/2006,03/29/2006,03/29/2006, 5,12/26/2004,02/14/2004,02/14/2004,03/03/19 04,03/03/2003,01/28/2003 Influenza, IIV3 (Age 6-35 mos) 12/06/2011,2010 Influenza, IIV4 01/17/2022,10/28/2019,07/22/2015 ,12/03/2013 Influenza, IIV4 (Age 6-35 Mos) 12/05/2012 MMR 03/23/2004,09/17/2000 Meningococcal Vaccine (Menactra) 09/21/2011 Tdap 04/09/2023,09/21/2011 Typhoid (injectable) 07/22/2015 Varicella Vaccine 09/13/2009,09/17/2000 Yellow Fever 07/22/2015 Social History Tobacco Use Types Packs/Day Years Used Date Smoking Tobacco: Former Cigarettes Smokeless Tobacco: Never Tobacco Cessation:Counseling Given: Not Answered Alcohol Use Standard Drinks/Week Comments Yes 0 (1 standard drink = 0.6 oz pur e alcohol) probably like once a week PHQ-2 Answer Date Recorded PHQ-2 TOTAL SCORE 0 08/13/2023 Social Connections Answer Date Recorded Frequency of Communication with Friends and Fami ly 0 07/05/2023 Financial Resource Strain Answer Date R ecorded Difficulty of Paying Living Expenses 3 07/05/2023 Difficulty of Paying Living Expenses Not on file 07/05/2023 Food Insecurity Answer Date Recorded Worried About Running Out of Food in the Last Ye ar 1 07/05/2023 Transportation Needs Answer Date Record ed Lack of Transportation (Medical) 1 07/05/2023 Housing Stability Answer Date Recorded Unable to Pay for Housing in the Last Year 1 07/05/2023 Sex and Gender Information Value Date Recorded Sex Assigned at Not on file Gender Identity Not on file Sexual Orientation Not on file Obstetrics History Last Filed Vital Signs Vital Sign Reading Time Taken Comments Blood Pressure 104/58 08/13/2023 1:24 PM CDT Pulse 92 08/13/2023 1:24 PM CDT denies symptoms, the traffic/construction was really bad Temperature 36.7 ??C (98.1 ??F) 06/08/2023 4 :41 PM CDT Respiratory Rate 24 06/08/2023 4:39 PM CDT Oxygen Saturation 96% 07/05/2023 2:3 7 PM CDT Inhaled Oxygen Concentration - - Weight 95.9 kg (211 lb 6.4 oz) 08/13/2023 1:24 PM CDT Height 162.4 cm (5' 3.94) 07/05/2023 2 :37 PM CDT Body Mass Index 36.36 07/05/2023 2:37 PM CDT Plan of Treatment Upcoming Encounters Date Type Department Care Team (Late st Contact Info) Description 10/14/2023 1:15 PM CDT Telemedicine [facility] [address] [place] [address] Marisol Hale NP [address] [place] [address] Health Maintenance Due Date Last Done Comments Pneumococcal series for age 6-64 (1 of 2 - PCV) 2005 HIV for age 15-65 2014 Hepatitis C screening for ag e 18-79 2017 Pap test for age 21-65 2020 COVID-19 vaccine series ( season) 2022 07/02/2020, 06/09/2020 Influenza for age 9-49 10/20/2023 2, 10/28/2019, 07/22/2015, Additional history exists Chlamydia for age 16-24 06/07/2024 06/08/2023 BMI (ht and wt on same day) for age 18+ 07/04/2024 07/05/2023 Depression screening for age 12+ 08/18/2024 08/19/2023, 08/13/2023, 07/05/2023 Tetanus booster 04/09/2033 04/09/2023, 09/21/2011 HPV series for age 9-26 Completed 03/24/19 13, 12/06/2011, 09/21/2011 Tdap Completed 04/09/2023, 09/21/2011 Procedures Procedure Name Priority Date/Time Associated Diagnosis Comments GC CHLAMYDIA TRACH PROBE Routine 06/08/2023 4:49 PM CDT Abdominal pain, generalized from Last 3 Months or Most Recently Relevant to Health Maintenance Results * (ABNORMAL) GC & CHLAMYDIA DNA PCR [[id number]] (06/08/2023 4:49 PM CDT) CHLAMYDIA PROBE Negative 3:00 AM CDT [facility] N GONORRHOEAE PROBE Positive(A) 06/09/2023 3:00 AM CDT [facility] Other VAGINAL SWAB / Unknown Non-Blood / Unknown 06/08/2023 4:49 PM CDT 06/08/2023 4:49 PM CDT David Allen MICROBIOLOGY [facility] [address] [place] [id number], from Last 3 Months or Most Recently Relevant to Health Maintenance Care Teams Order Make Up Clerk Relationship Specialty Start Date End Date [facility] PCP - General 06/08/23 Clinic, No Pcp Or . 06/08/23
--- OUTSIDE RECORDS SUMMARY | 2023-09-20 10:52 | XMS_ITS | Encounter Summary ---
Author Organization [employer] Address [address] [place] [address] Care Team Providers Care Palliative Care Physician Name Role Phone Richard Ramachandran APRN, MINE LABORER Primary Care Provide r Reason for Visit * Procedure/Equipment (Routine) - Incomplete Specialty Diagnoses / Procedures Referred By Contac t Referred To Contact Diagnoses Neck pain Procedures XR Cervical Spine 3 Views Vlad Swenson PA-C [address] [place] [address] Referral ID Status Reason Start Date Expiration Date V isits Requested Visits Authorized [id number] Incomplete 09/06/2023 12/05/2024 1 1 Encounter Details Date Type Department Care Team (Late st Contact Info) Description 09/06/2023 11:05 AM CDT Ancillary Procedure [facility] [address] [place] [phone] Vlad Swenson PA-C [address] [place] [address] Neck pain Social History Tobacco Use Types Packs/Day Years [...] Name Priority Date/Time Associated Diagnosis Comments XR CERVICAL SPINE 3 VIEWS STAT 09/06/2023 11:11 AM CDT Neck pain documented in this encounter Results * XR Cervical Spine 3 Views (09/06/2023 [...] relatively preserved. No prevertebral soft tissueswelling. Vlad LUNA GD documented in this encounter Visit Diagnoses Diagnosis Neck pain Cervicalgia documented in this encounter Care Teams Palliative Care Physician Relationship Specialty Start Date End Date Richard Ramachandran, CARVER HAND, MINE LABORER [address] [place] [address] PCP - General Nurse Practitioner 05/10/23 documented as of this encounter
--- OUTSIDE RECORDS SUMMARY | 2023-09-20 10:52 | XMS_ITS | Encounter Summary ---
Author Organization [employer] Address [address] [place] [address] Care Team Providers Care Financial Director Name Role Phone Richard Raamchandran APRN, STOPPER SETTER Primary Care Provide r Reason for Visit * Reason Comments STD CHECK--ED Encounter Details Date Type Department Care Team (Late st Contact Info) Description 09/06/2023 11:20 AM CDT Office Visit [place] [facility] [address] [place] [address] Vlad Swenson, PA-C [address] [facility] [address] [place], [place] [address] Exposure to STD; Rash and nonspecific skin eruption Social History Tobacco Use Types Packs/Day Years [...] Sign Reading Time Taken Comments Blood Pressure 130/72 09/06/2023 10:30 AM CDT Pulse 76 09/06/2023 10:30 AM CDT Temperature 36.7 ??C (98.1 ??F) 09/06/2023 10:30 AM C DT Respiratory Rate 18 09/06/2023 10:30 AM CDT Oxygen Saturation 100% 09/06/2023 10:30 AM CDT Inhaled Oxygen Concentration - - Weight - - Height - - Body Mass Index - - documented in this encounter Progress Notes * Vlad Swenson PA-C - 09/06/2023 11:20 AM CDT Patient would like a swab for STDs. No known exposure or symptoms Patient presents to urgent care requesting STD testing. She denies any known exposures her symptoms. She also complains of a rash in her skin folds. Remainder review of systems is negative. Past Medical History: Patient Active Problem List [...] levonorgestrel, naltrexone, ondansetron, sertraline, traZODone, and tretinoin Family [...] Currently Drug use: Not Currently Types: Marijuana Review of Systems: All systems were reviewed and found to be negative except as noted above. OBJECTIVE: General: NAD Skin: Mucous membranes are moist, no sign of dehydration. Patient has an erythemic rash in her skinfolds consistent with tinea/yeast. Head: Normocephalic. Respiratory: Normal respiratory effort. Lungs are clear with good breath sounds. Heart: RR without murmurs, rubs, or gallops. Vital Signs: BP 130/72 Pulse 76 Temp 36.7 ??C (98.1 ??F) Resp 18 SpO2 100% Labs: No results found for any visits on 09/06/23. ASSESSMENT: 1. Exposure to STD 2. Rash and nonspecific skin eruption Medical Decision Makin-year-old female presenting for STD testing. She was had a new partner since she was tested last time. She denies any vaginal symptoms. STD testing was obtained. Patient had HIV, hepatitis and treponemal obtained about 6 months ago. She is declining blood testing today. Patient be contacted if her gonorrhea or chlamydia return positive. Patient was also requesting a cream for a rash in her skin folds. Rash is consistent with a tinea/yeast. Patient was given a prescription for ketoconazole cream. She should return to urgent care with any ongoing or worsening of her symptoms. PLAN: Orders Placed This Encounter Chlamydia & GC (14 Years and Older): Vagina ketoconazole (NIZORAL) 2 % cream There are no Patient Instructions on file for this visit. No orders of the defined types were placed in this encounter. RTC p.r.n. Total visit time was 25 minutes. documented in this encounter Nursing Notes * Nemo Maldonado RN - 09/06/2023 11:20 AM CDT Patient would like a swab for STDs. No known exposure or symptoms documented in this encounter Plan of Treatment Not on file documented as of this encounter Procedures Procedure Name Priority Date/Time Associated Diagnosis Comments CHLAMYDIA & GC (14 YEARS & OLDER) Routine 09/06/2023 10:55 AM CDT Exposure to STD documented in this encounter Results * Chlamydia & GC (14 Years and Older): Vagina (09/06/2023 10:55 AM CDT) Chlamydia Trachomatis STD Not Detected Not Detected 09/07/2023 12:41 AM CDT [facility] N. gonorrhoeae STD Not Detected Not Detected 09/07/2023 12:41 AM CDT [facility] Swab STD SPECIMEN FROM VAGINA / Unknown Non-blood Collection / Unknown 09/06/2023 10:55 AM CDT 09/06/2023 11:10 AM CDT Narrative [facility] - 09/07/2023 12:41 AM CDT Test performed by [employer] Mediated Amplification (TMA). Vlad Swenson PA-C LAB_1 [facility] [address] documented in this encounter Visit Diagnoses Diagnosis Exposure to STD Contact with or exposure to venereal diseases Rash and nonspecific skin eruption Rash and other nonspecific skin eruption documented in this encounter Care Teams Financial Director Relationship Specialty Start Date End Date Richard Ramachandran, X RAY SERVICE TECHNICIAN, STOPPER SETTER [address] [place] [address] PCP - General Nurse Practitioner 05/10/23 documented as of this encounter
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
[2023-09-20 10:53] LABS: Basophils Absolute Auto 0.05 K/uL (0.00-0.30); Basophils Percent Auto 0.5 % (0.0-3.0); Hematocrit 41.3 % (33.0-51.0); Hemoglobin* 13.8 gm/dL (12.0-16.0); Immature Granulocytes Abs Auto 0.02 K/uL (0.00-0.30); Immature Granulocytes Pct Auto 0.2 %; Lymphocytes Absolute Auto 2.75 K/uL (0.90-2.90); Lymphocytes Percent Auto 27.9 % (20-44); Mean Corpuscular HGB Conc 33 gm/dL (32-36); Mean Corpuscular Hemoglobin 31 pg (26-34); Mean Corpuscular Volume 92 fL (80-100); Monocytes Percent Auto 6.1 % (0.0-11.0); Neutrophils Absolute Auto 6.32 K/uL (1.7-7.0); Neutrophils Percent Auto 64.3 % (42.0-72.0); Platelet Count* 255 K/uL (140-440); RDW Coefficient of Variation % 12.8 % (11.5-15.5); Red Blood Count 4.47 m/uL (4.00-5.20); White Blood Count* 9.84 K/uL (4.50-11.00)
--- OUTSIDE RECORDS SUMMARY | 2023-09-20 10:53 | XMS_ITS | Encounter Summary ---
Author Organization [employer] Address [address] [place] [address] Care Team Providers Care Candle Wrapper Name Role Phone Richard Ramachandran APRN, ADRIANNE Primary Care Provide r Encounter Details Date Type Department Care Team (Late st Contact Info) Description 07/09/2023 3:50 PM CDT Lab Visit [facility] [id number] [place] [address], [facility] [address] [place] [address] Positive test Social History Tobacco Use Types Packs/Day Years [...] Procedure Name Priority Date/Time Associated Diagnosis Comments HCG, QUANTITATIVE, SERUM STAT 07/09/2023 3:47 PM CDT Positive test documented in this encounter Results * HCG, Quantitative, Serum (07/09/2023 3:47 PM CDT) HCG, Quantitative <2 <=4 mIU/mL 024 8:27 PM CDT [facility] Blood Venipuncture / Unknown 07/09/2023 3:47 PM CDT 07/09/2023 3:47 PM CDT Narrative [facility] - 07/09/2023 8:27 PM CDT Expected ranges Negative: <5 mIU/mL Indeterminate: 5-25 mIU/mL Positive: >25 mIU/mL Suggest repeat testing of indeterminate result in 72 hours. Nya Nance DO LAB_1 [facility] [address] documented in this encounter Visit Diagnoses Diagnosis Positive test examination or test, positive result documented in this encounter Care Teams Candle Wrapper Relationship Specialty Start Date End Date Richard Ramachandran APRN, ADRIANNE [address] [place] [address] PCP - General Nurse Practitioner 05/10/23 documented as of this encounter
--- OUTSIDE RECORDS SUMMARY | 2023-09-20 10:53 | XMS_ITS | Encounter Summary ---
Author Organization [employer] Address [address] [place] [address] Care Team Providers Care Mill Hand Plate Mill Name Role Phone Richard Ramachandran APRN, SENIOR CHEMIST Primary Care Provide r Reason for Visit * Reason Onset Date Comments IUD Follow Up Patient Walk Out 07/02/2023 Patient left wi thout being seen Encounter Details Date Type Department Care Team (Late st Contact Info) Description 07/01/2023 1:30 PM CDT Office Visit [facility]ADMINISTRATOR SOCIAL WELFARE [address] [facility], [facility] [address] [place] [address] Paige Rivas APRN, SENIOR CHEMIST [address] [address] Encounters for administrative purposes (Primary Dx) Social History Tobacco Use Types [...] Sign Reading Time Taken Comments Blood Pressure 119/55 07/01/2023 1:07 PM CDT Pulse 70 07/01/2023 1:07 PM CDT Temperature - - Respiratory Rate - - Oxygen Saturation - - Inhaled Oxygen Concentration - - Weight 96.1 kg (211 lb 12.8 oz) 07/01/2023 1:07 PM CDT Height 162.6 cm (5' 4) 07/01/2023 1:07 PM CDT Body Mass Index 36.36 07/01/2023 1:07 PM CDT documented in this encounter Progress Notes * Paige Rivas APRN, CNP - 07/01/2023 1:30 PM CDT Patient left without being seen. documented in this encounter Plan of Treatment Not on file documented as of this encounter Visit Diagnoses Diagnosis Encounters for administrative purposes- Primary Encounters for unspecified administrative purpose documented in this encounter Care Teams Mill Hand Plate Mill Relationship Specialty Start Date End Date Richard Ramachandran APRN, CNP [address] [place] [place] [address] PCP - General Nurse Practitioner 05/10/23 documented as of this encounter
--- OUTSIDE RECORDS SUMMARY | 2023-09-20 10:53 | XMS_ITS | Encounter Summary ---
Author Organization [employer] Address [address] [place] [address] Care Team Providers Care Wedding Consultant Name Role Phone Richard Ramachandran APRN, PRIVATE EYE Primary Care Provide r Reason for Visit * Procedure/Equipment (Routine) - Incomplete Specialty Diagnoses / Procedures Referred By Contperfecto t Referred To Contact Diagnoses Pelvic cramping Procedures US IUD Localization (EV Only) US Pelvic (EV Only) Leonardo Huang PA-C [address] [facility] [place] [address] Referral ID Status Reason Start Date Expiration Date V isits Requested Visits Authorized [id number] Incomplete 07/17/2023 10/15/2024 1 1 Encounter Details Date Type Department Care Team (Latest Contact Info) Description 07/17/2023 11:15 AM CDT Ancillary Procedure [facility] [address] Ul[facility]ound [address] [place] [address] Leonardo Huang PA-C [address] [facility] [place] [address] Pelvic cramping Social History Tobacco Use Types Packs/Day Years [...] Procedure Name Priority Date/Time Associated Diagnosis Comments US IUD LOCALIZATION (EV ONLY) STAT 07/17/2023 10:18 AM CDT Pelvic cramping documented in this encounter Results * US IUD Localization (EV Only) (07/17/2023 [...] canal. Remainder of theexamination is unremarkable. Leonardo LINDSAY documented in this encounter Visit Diagnoses Diagnosis Pelvic cramping Unspecified symptom associated with female genital organs documented in this encounter Care Teams Wedding Consultant Relationship Specialty Start Date End Date Richard Ramachandran, VACCINATOR, PRIVATE EYE [address] [place] [address] PCP - General Nurse Practitioner 05/10/23 documented as of this encounter
--- OUTSIDE RECORDS SUMMARY | 2023-09-20 10:53 | XMS_ITS | Encounter Summary ---
Author Organization [facility] Address [address] [place] [address] Care Team Providers Care Metallurgy Laboratory Technician Name Role Phone Richard Ramachandran APRN, SEMICONDUCTOR WAFERS MARKER Primary Care Provide r Reason for Visit * Reason Onset Date Comments No Show 07/02/2023 Encounter Details Date Type Department Care Team (Latest Contact Info) Description 07/02/2023 8:05 AM CDT Telemedicine [facility] [address] [place], [place] [phone] Amelia Britton MD [address] [place] [address] Encounters for administrative purposes (Primary Dx) Social [...] Progress Notes * Amelia Britton MD - 07/02/2023 8:05 AM CDT Patient was called/texted 2 times and was unable to be reached to complete their video/phone visit. documented in this encounter Plan of Treatment Not on file documented as of this encounter Visit Diagnoses Diagnosis Encounters for administrative purposes- Primary Encounters for unspecified administrative purpose documented in this encounter Care Teams Metallurgy Laboratory Technician Relationship Specialty Start Date End Date Richard Ramachandran APRN, SEMICONDUCTOR WAFERS MARKER [address] [place] [address] PCP - General Nurse Practitioner 05/10/23 documented as of this encounter
--- OUTSIDE RECORDS SUMMARY | 2023-09-20 10:53 | XMS_ITS | Encounter Summary ---
Author Organization [facility] Address [address] [place] [address] Care Team Providers Care Cut Off Machine Unloader Name Role Phone Richard Ramachandran APRN, BORING INSPECTOR Primary Care Provide r Encounter Details Date Type Department Care Team (Late st Contact Info) Description 07/21/2023 2:40 PM CDT Nursing Visit [facility] [address] [place] [address] Gonorrhea Social History Tobacco Use Types Packs/Day Years [...] as of this encounter Progress Notes * Indigo Jones RN - 07/21/2023 2:40 PM CDT Pt denies signs of allergic reaction following IM Rocephin. Pt advised ideally no sexual contact for 2 mths until her fu STI testing. Informed to wait at least two weeks after both her and her partner have been treated for Gonorrhea. Pt verbalizes understanding. documented in this encounter Plan of Treatment Not on file documented as of this encounter Visit Diagnoses Diagnosis Gonorrhea Gonococcal infection (acute) of lower genitourinary tract documented in this encounter Administered Medications Inactive Administered Medications - up to 3 most recent administrations Medication Order MAR Action Action Date Dose Rate Site cefTRIAXone (ROCEPHIN) 500 mg in lidocaine PF (XYLOCAINE) 1 % 350 mg/mL IM injection 500 mg, Intramuscular, ONCE, On 07/21/23 at 1400, For 1 dose, ALL MEDICATIONS REQUIRING DOSAGE CALCULATION REQUIRE TWO CLINICAL STAFF TO VERIFY Provider orders need to be rounded to the nearest 50mg increment due to the inability to precisely draw up doses to the hundredth of a milliliter. Approved Diluents: 0.9% sodium chloride for injection, lidocaine, sterile water for injection For doses greater than 250 mg Ceftriaxone (ROCEPHIN) dilution instructions to make a 350 mg/mL concentration. Dilute 500 mg vial with 1.0 mL lidocaine 1% solution Dilute 1 gram vial with 2.1 mL lidocaine 1% solution Dosing Instructions: Dose Volume 300 mg 0.9 ml 350 mg 1 ml 400 mg 1.1 ml 450 mg 1.3 ml 500 mg 1.4 ml* 550 mg 1.6 ml 600 mg 1.7 ml 650 mg 1.9 ml 700 mg 2 ml 750 mg 2.1 ml 800 mg 2.3 ml 850 mg 2.4 ml 900 mg 2.6 ml 950 mg 2.7 ml 1 g 2.9 ml * *Withdraw entire reconstituted amount; reconstituted liquid may vary and not be a complete 1.4 mL Withdraw entire reconstituted amount; reconstituted liquid may vary and not be a complete 2.9 mL Example: Provider orders 350 mg. Use the 500 mg vial and add 1 mL diluent. Volume to draw up and administer is 1 ml. The remaining medication is discarded. Example: Provider orders 500 mg. Use the 500 mg vial and add 1 mL diluent. Volume to draw up and administer is 1.4 ml. There is no remaining medication. Example: Provider orders 850 mg. Use the 1 g vial and add 2.1 mL diluent. Volume to draw up and administer is 2.4 ml. The remaining medication is discarded. Example: Provider orders 1 g. Use the 1 g vial and add 2.1 mL diluent. Volume to draw up and administer is 2.9 ml. There is no remaining medication, Indications: Gonorrhea Given 07/21/2023 1:47 PM CDT 500 mg Left Vastus Lateralis (Left Anterior Thigh) documented in this encounter Care Teams Cut Off Machine Unloader Relationship Specialty Start Date End Date Richard Ramachanrdan, RN OPERATING ROOM, BORING INSPECTOR [address] [place] [place] [address] PCP - General Nurse Practitioner 05/10/23 documented as of this encounter
--- OUTSIDE RECORDS SUMMARY | 2023-09-20 10:53 | XMS_ITS | Encounter Summary ---
Author Organization [employer] Address [address] [place] [address] Care Team Providers Care Pellet Mill Operator Name Role Phone Richard Ramachandran APRN, ADRIANNE Primary Care Provide r Encounter Details Date Type Department Care Team (Late st Contact Info) Description 06/20/2023 9:30 AM CDT Lab Visit [facility] [address] [place] [address], [facility] [address] [place] [address] Pre-procedure lab exam Social History Tobacco Use Types Packs/Day Years [...] Procedure Name Priority Date/Time Associated Diagnosis Comments TEST (URINE) Waiting 06/20/2023 9:24 AM CDT Pre-procedure lab exam documented in this encounter Results * Test (Urine) (06/20/2023 9:24 AM CDT) HCG, Urine Negative Negative 06/20/2023 9:40 AM CDT [facility] Urine Non-blood Collection / Unknown 06/20/2023 9:24 AM CDT 06/20/2023 9:24 AM CDT Earnestine Jennings MD LAB_1 [facility] [address] [place] [address], [facility] documented in this encounter Visit Diagnoses Diagnosis Pre-procedure lab exam Pre-procedural laboratory examination documented in this encounter Care Teams Pellet Mill Operator Relationship Specialty Start Date End Date Richard Ramachandran, MOVIE THEATER USHER, BANQUET BARTENDER [address] [phone] PCP - General Nurse Practitioner 05/10/23 documented as of this encounter
--- OUTSIDE RECORDS SUMMARY | 2023-09-20 10:53 | XMS_ITS | Encounter Summary ---
Author Organization [facility] Address [address] [place] [address] Care Team Providers Care Commissary Agent Name Role Phone Richard Ramachandran APRN, CNP Primary Care Provide r Encounter Details Date Type Department Care Team (Late st Contact Info) Description 07/08/2023 E-Visit [facility]-WOOD CAR BUILDER [address] [facility], [facility] [address] [place] [address] [place] [address] [place] [address] [address] Social History Tobacco Use Types Packs/Day Years [...] on filedocumented in this encounter Care Teams Commissary Agent Relationship Specialty Start Date End Date Richard Ramachandran APRN, CNP [address] [place] [phone] PCP - General Nurse Practitioner 05/10/23 documented as of this encounter
--- OUTSIDE RECORDS SUMMARY | 2023-09-20 10:53 | XMS_ITS | Encounter Summary ---
Author Organization [employer] Address [address] [place] [address] Care Team Providers Care Nurse Staff Industrial Name Role Phone Richard Ramachandran APRN, DESIGN ENGINEER PRODUCTS Primary Care Provide r Reason for Visit * Reason Onset Date Comments Patient Walk Out 07/07/2023 Patient left wi thout being seen Encounter Details Date Type Department Care Team (Latest Contact Info) Description 07/07/2023 1:20 PM CDT Office Visit [facility] [address] [place] [address] Encounters for administrative purposes Social History Tobacco Use Types Packs/Day Years [...] as of this encounter Progress Notes * Chandrika Barragan RN - 07/07/2023 1:20 PM CDT Patient left without being seen. documented in this encounter Plan of Treatment Not on file documented as of this encounter Visit Diagnoses Diagnosis Encounters for administrative purposes Encounters for unspecified administrative purpose documented in this encounter Care Teams Nurse Staff Industrial Relationship Specialty Start Date End Date Richard Ramachandran, JULIO C, DESIGN ENGINEER PRODUCTS [address] [place] [address] PCP - General Nurse Practitioner 05/10/23 documented as of this encounter
--- OUTSIDE RECORDS SUMMARY | 2023-09-20 10:53 | XMS_ITS | Encounter Summary ---
Author Organization [employer] Address [address] [place] [address] Care Team Providers Care Welder Apprentice Name Role Phone Richard Ramachandran APRN, VERIFICATION MANAGER Primary Care Provide r Encounter Details Date Type Department Care Team (Late st Contact Info) Description 07/17/2023 Notes/Orders [facility]-DICTATING MACHINE TRANSCRIBER [address] [facility], [address] [address] [place] [address] [phone] Social History Tobacco Use Types Packs/Day Years [...] as of this encounter Progress Notes * Adriano Snow MD - 07/17/2023 9:37 AM CDT Received page from provider, Luis Huang, while communications editor. Patient presented with chronic vaginal bleeding s/p mIUD placement less than 3 months ago. She presented to due to approx 10 days of bleeding, filling pad/tampon 2-3/day. Reportedly patient had appt in OBGYN office recently and had pelvic exam where Amarilys wills were seen. Provider query was is this abnormal bleeding pattern expected? We discussed that it is common to have AUB and cramping on average 3 months after IUD placement. Ifthis continues then patient can f/u with OBGYN outpatient to consider r/b/a of HEIDI for 3 months to lessen SE's (if she has no estrogen contraindications). Patient is reportedly declining pelvic exam as she has once recently in the office. Provider and I discussed to consider IUD localization US to determine if pt stx's 2/2 to malposition of IUD and I would recommend f/u in office if abnormal or if stx continue 3 months s/p placement. If patient has not had blood work, could consider Hgb check as well and if anemic could offer Tx as indicated. Appreciate providers care of this patient. Adriano Snow MD PN [facility] Gisela documented in this encounter Plan of Treatment Not on file documented as of this encounter Visit Diagnoses Not on filedocumented in this encounter Care Teams Welder Apprentice Relationship Specialty Start Date End Date Richard Ramachandran, SENIOR ERP CONSULTANT, VERIFICATION MANAGER [address] [place] [address] PCP - General Nurse Practitioner 05/10/23 documented as of this encounter
--- OUTSIDE RECORDS SUMMARY | 2023-09-20 10:53 | XMS_ITS | Encounter Summary ---
Author Organization [employer] Address [address] [place] [address] Care Team Providers Care Synthetic Gem Press Operator Name Role Phone Richard Ramachandran APRN, MUMPS DEVELOPER Primary Care Provide r Encounter Details Date Type Department Care Team (Late st Contact Info) Description 07/18/2023 Notes/Orders [facility] [address] [facility], [address] [address] [place] [id number] [id number] Social History Tobacco Use Types Packs/Day Years [...] as of this encounter Progress Notes * Earnestine Jennings MD - 07/18/2023 11:09 AM CDT [facility] BRIEF REMOTE CONSULTATION CLINICAL INFORMATION Erika Snowden is a 23 y.o. who was seen at Urgent Care yesterday for vaginal discharge. Seen at [facility], I was contacted by Niru Kennedy to discuss treatment for positive Gonorrhea result given patient was recently treated for Gonorrhea in May. [facility] Vagintis panel negative Lab Results Component Value Date ANASTASIA Detected (A) 07/17/2023 ANASTASIA Not Detected 06/20/2023 ANASTASIA Positive (A) 06/08/2023 CHLAMYDIA Not Detected 07/17/2023 CHLAMYDIA Not Detected 06/20/2023 CHLAMYDIA Negative 06/08/202306/07 result was at [facility] and was treated with IM Rocephin. ASSESSMENT & PLAN Erika is a 23 y.o. with Gonorrhea. Discussed results above, given she had a positive test and was treated, followed by a negative test, and now a repeat positive test I would recommend treating with IM Ceftriaxone per CDC treatment guidelines. A total of 10 minutes was spent on this consultation including chart review, discussion with consulting provider, and documentation. Earnestine Jennings MD Obstetrics & Gynecology 07/18/2023 11:09 AM documented in this encounter Plan of Treatment Not on file documented as of this encounter Visit Diagnoses Not on filedocumented in this encounter Care Teams Synthetic Gem Press Operator Relationship Specialty Start Date End Date Richard Ramachandran, FINANCIAL REPORT SERVICE SALES AGENT, MUMPS DEVELOPER [address] [address] [place] [address] PCP - General Nurse Practitioner 05/10/23 documented as of this encounter
--- OUTSIDE RECORDS SUMMARY | 2023-09-20 10:53 | XMS_ITS | Encounter Summary ---
Author Organization [facility] Address [address] [place] [address] Care Team Providers Care Production Lapping Machine Operator Name Role Phone Richard Ramachandran APRN, CNP Primary Care Provide r Reason for Referral * Consult/Transfer Care (Routine) - New Request Specialty Diagnoses / Procedures Referred By Estevan almeida Referred To Contact Diagnoses Nausea Alcohol abuse Nausea and vomiting, unspecified vomiting type Jessie Roth MD [address] [place] [address] Referral ID Status Reason Start Date Expiration Date V isits Requested Visits Authorized [id number] New Request 07/31/2023 10/29/2024 1 1 Scheduling Instructions Your provider has recommended an appointment with [facility]. You can quickly make your appointment online at doxo/schedule. You can also call [phone] for help scheduling your appointment. We suggest you call your health insurance company about your coverage and benefits for this appointment. Question Answer Appointment Urgency? Within 1 Week (Urgent) Reason for visit? 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 , as needed for nausea; she is actively usng alcohol and PRN naltrexone and we did labworkup today and she requested zofran and we will provide small suply but suggest primary for ongoing use of this drug Reason for Visit * Reason Comments Nausea Encounter Details Date Type Department Care Team (Late st Contact Info) Description 07/31/2023 2:00 PM CDT Office Visit [facility] [address] [place] [address] Jessie Roth MD [address] [place] [address] Nausea; Vaginal discharge; Vaginal odor; Screen for STD (sexually transmitted disease); Alcohol abuse; Nausea and vomiting, unspecified vomiting type Social History Tobacco Use Types Packs/Day [...] Sign Reading Time Taken Comments Blood Pressure 115/62 07/31/2023 1:40 PM CDT Pulse 87 07/31/2023 1:40 PM CDT Temperature 36.8 ??C (98.3 ??F) 07/31/2023 2:43 PM CD T Respiratory Rate 20 07/31/2023 1:40 PM CDT Oxygen Saturation 99% 07/31/2023 1:40 PM CDT Inhaled Oxygen Concentration - - Weight - - Height - - Body Mass Index - - documented in this encounter Progress Notes * Jessie Roth MD - 07/31/2023 2:00 PM CDT Nursing Notes: Indigo Jones RN 07/31/23 5869 Signed Pt reports she took Naltrexone 6 days ago and had one drink later that day. Pt has vomited for 4 days after (6 times per day), Pt continues to have strong nausea. Pt requesting full STD testing and pg test. Pt reports she has had IUD placed 5-2, Pt took Plan B three days before that for unprotectedsex. Pt was treated for gonorrhea 10 days ago. Pt is having vag discharge and vaginal odor. Patient requests an excuse letter for work/school: No SUBJECTIVE: Erika Snowden is a 23 y.o.female with a history of allergic rhinitis and substance abuse of alcohol with bipolar disorder and anxiety disorder and she was treated at [facility] in May and June 2023 for gonorrhea who presents to for evaluation of concern about nausea after using naltrexone and drinking alcohol and is concerned for risk of STD with vaginal discharge and odor. . She has been drinking a lot daily for 5 months , typically 5 drinks a day with no blackouts and no tremors so , on July 24 in order to reduce craving she took Naltrexone for several years off and on ,and then she had a drink and after that , she got vomiting that lasted for 3 days ; she had no hematemesis and she may have had fevers . She has had 3 days now of no vomiting but with nausea and night sweats . She had concern for with unprotected sex ; she wants testing for STD and vaginal infections. She has had no pelvic pain , no dysuria, no diarrhea or constipation and denies melena. She is having bad heart burn, and wonders about GERD . She has not been light headed or syncopal. She has no history of liver problems in the past . She has had liver enzyme testing 2 years ago that she remembers at [facility] and the tests were normal. She denies a head injury or head ache today. She was treated here with zofran by the nurse and it helped and she would like more by RX. Social/Family History, Past Medical/Surgical History, Medications and Allergies have all been reviewed in [facility]. Social History Tobacco Use Smoking status: Former Current packs/day: 0.25 Average packs/day: 0.3 packs/day for 1 year (0.3 ttl pk-yrs) Types: Cigarettes Smokeless tobacco: Never Tobacco comments: juuls Substance Use Topics Alcohol use: Not Currently ROS: Complete ROS was negative other than what was cited above. OBJECTIVE: Vital Signs: BP 115/62 (BP Location: Left Arm, BP Cuff Size: Large) Pulse 87 Temp 36.8 ??C (98.3 ??F) Resp 20 LMP 07/07/2023 (Approximate) Comment: Mirena SpO2 99% . General: Well developed and nourished. She is in no distress. HEENT: Normocephalic and atraumatic. Conjunctiva normal with no scleral icterus. Neck: Supple. Normal ROM. Cardiac: RRR Respiratory: CTAB Abdomen: Soft, NT, no mass or HSM Musculoskeletal: Normal ROM with no flank tenderness. Neurological: Alert and oriented x3. CNI. PRRL. Skin: Warm and dry Psychiatric: Normal mood and affect. Medical Decision Making :She has had new onset nausea and vomiting persistent with history of alcohol abuse active and naltrexone use PRN ; she had urine test and is not : we are thinking ofother potential causes for ongoing nausea with recent vomiting while using alcohol. and suggest liver enzyme testing and CBC . We advised her that we should be reviewing the blood test results with her before she leaves today but she left after blood was drawn. Based on blood test results she is stable for discharge home but further follow up with primary regarding nausea alcohol use is indicated. ASSESSMENT: 1. Nausea 2. Vaginal discharge 3. Vaginal odor 4. Screen for STD (sexually transmitted disease) 5. Alcohol abuse 6. Nausea and vomiting, unspecified vomiting type LABS: Results for orders placed or performed in visit on 07/31/23 Comp Metabolic Panel Result Value Ref Range Sodium 140 136 - 145 mmol/L Potassium 4.3 3.5 - 5.1 mmol/L Chloride 106 98 - 109 mmol/L CO2 25 20 - 29 mmol/L Anion Gap 9 6 - 16 mmol/L Calcium 9.7 8.4 - 10.4 mg/dL BUN 12 7 - 26 mg/dL Creatinine 0.91 0.55 - 1.02 mg/dL Alkaline Phosphatase 68 40 - 150 U/L AST (SGOT) 21 10 - 40 U/L ALT (SGPT) 21 <=55 U/L Bilirubin, Total 0.3 0.2 - 1.2 mg/dL Protein, Total 6.7 6.4 - 8.3 g/dL Albumin 4.0 3.5 - 5.0 g/dL Glucose 89 70 - 100 mg/dL GFR, Estimated >60 >60 mL/min/1.73m2 Hours Fasting 2.0 8 - 12 Hours Complete Blood Count-W/Diff Result Value Ref Range WBC 10.2 3.5 - 10.5 x10(9)/L RBC 4.53 3.90 - 5.03 x10(12)/L Hemoglobin 14.1 12.0 - 15.5 g/dL HCT 42.0 34.9 - 44.5 % MCV 92.7 80.0 - 100.0 fL MCH 31.1 27.6 - 33.3 pg MCHC 33.6 31.5 - 35.2 g/dL RDW 12.6 11.9 - 15.5 % Platelets 275 150 - 450 x10(9)/L Automated NRBC 0 <=0 /100 WBC Neutrophil Absolute 6.9 1.7 - 7.0 10(9)/L Lymphocyte Absolute 2.5 1.0 - 4.8 10(9)/L Monocyte Absolute 0.6 0.2 - 0.9 10(9)/L Eosinophil Absolute 0.1 0.0 - 0.5 10(9)/L Basophil Absolute 0.1 0.0 - 0.3 10(9)/L Immature Granulocyte % 0.4 0.0 - 0.5 % Results for orders placed or performed in visit on 07/31/23 Urinalysis Routine, Micro/Culture if Pos: Clean Catch Specimen: Clean Catch; Urine Result Value Ref Range Urine Culture Comment Urinalysis results do not meet criteria for urine culture reflex. Urine Color Straw Urine Clarity Clear Clear Specific [place], Urine 1.010 1.005 - 1.030 PH Urine 7.0 5.0 - 8.0 Protein, Urine Qual (mg/dL) Negative Neg/Trace Glucose Urine Qual (mg/dL) Negative Negative Ketones, Urine (mg/dL) Negative Negative Urobilinogen, Urine (EU/dL) 0.2 <2.0 Bilirubin Urine Negative Negative Blood, Urine Small (A) Neg/Trace Nitrite Urine Negative Negative Leukocyte Est. Negative Negative Urine Source Clean Catch Test (Urine) - Collect in Clinic Today Result Value Ref Range HCG, Urine Negative Negative Urine Microscopic Evaluation: Clean Catch Specimen: Clean Catch; Urine Result Value Ref Range Red Blood Cells 0-3 0 - 3 /HPF White Blood Cells 0-5 0 - 5 /HPF Bacteria None Seen None Seen /HPF Squamous Epithelial Cells Occasional None Seen, Occasional, Few /HPF PLAN: Zofran given by nurse and was helpful. Because of her reported persistent nausea and recent intense vomiting , we suggest she wait for blood test results but she left after blood was drawn. Mini vag panel was ordered for vaginal odor, discharge and STD screen : she will be contacted by nurse and treated for positive results. We called her at 8:30 to review blood test results , which were normal and we advised we sent RX for some zofran to use as needed. She is advised of need for primary care follow up The patient was discharged ambulatory and in stable condition. Medications Prescribed this Visit Disp Refills Start End ondansetron (ZOFRAN-ODT) 4 MG disintegrating tablet 6 Tablet 0 07/31/2023 -- Take 1 Tablet (4 mg) by mouth every 8 hours as needed for Nausea. Oral Discharge Instructions None documented in this encounter Nursing Notes * Indigo Jones RN - 07/31/2023 2:00 PM CDT Pt reports she took Naltrexone 6 days ago and had one drink later that day. Pt has vomited for 4 days after (6 times per day), Pt continues to have strong nausea. Pt requesting full STD testing and pg test. Pt reports she has had IUD placed 5-2, Pt took Plan B three days before that for unprotectedsex. Pt was treated for gonorrhea 10 days ago. Pt is having vag discharge and vaginal odor. Patient requests an excuse letter for work/school: No documented in this encounter Plan of Treatment Scheduled Referrals Name Type Priority Associated Diagnoses Orde r Schedule FAMILY MEDICINE CONSULT ADULT/PEDS (AMB) Referral Routine Nausea Alcohol abuse Nausea and vomiting, unspecified vomiting type Ordered: 07/31/2023 documented as of this encounter Procedures Procedure Name Priority Date/Time Associated Diagnosis Comments VAGINITIS PANEL Routine 07/31/2023 2:46 PM CDT Vaginal discharge Vaginal odor CHLAMYDIA & GC (14 YEARS & OLDER) Routine 07/31/2023 2:46 PM CDT Vaginal discharge Vaginal odor Screen for STD (sexually transmitted disease) URINALYSIS ROUTINE, MICRO/CULTURE IF POS STAT 07/31/2023 1:49 PM CDT Nausea TEST (URINE) STAT 07/31/2023 1:49 PM CDT Nausea UA MICRO STAT 07/31/2023 1:49 PM CDT Nausea documented in this encounter Results * Comp Metabolic Panel (07/31/2023 3:01 PM T) Sodium 140 136 - 145 mmol/L 07/31/2023 3:58 PM [facility] Potassium 4.3 3.5 - 5.1 mmol/L 07/31/2023 3:58 PM [facility] Chloride 106 98 - 109 mmol/L 07/31/2023 3:58 PM [facility] CO2 25 20 - 29 mmol/L 07/31/2023 3:58 PM [facility] Anion Gap 9 6 - 16 mmol/L 07/31/2023 3:58 PM [facility] Calcium 9.7 8.4 - 10.4 mg/dL 07/31/2023 3:58 PM [facility] BUN 12 7 - 26 mg/dL 07/31/2023 3:58 PM [facility] Creatinine 0.91 0.55 - 1.02 mg/dL 07/31/2023 3:58 PM [facility] Alkaline Phosphatase 68 40 - 150 U/L 07/31/2023 3:58 PM [facility] AST (SGOT) 21 10 - 40 U/L 07/31/2023 3:58 PM [facility] ALT (SGPT) 21 <=55 U/L 07/31/2023 3:58 PM [facility] Bilirubin, Total 0.3 0.2 - 1.2 mg/dL 07/31/2023 3:58 PM [facility] Protein, Total 6.7 6.4 - 8.3 g/dL 07/31/2023 3:58 PM [facility] Albumin 4.0 3.5 - 5.0 g/dL 07/31/2023 3:58 PM [facility] Glucose 89 70 - 100 mg/dL 07/31/2023 3:58 PM [facility] Comment:The given reference range is for the fasting state. Non-fasting reference range for glucose is 70 - 180 mg/dL. GFR, Estimated >60 >60 mL/min/1.7 3m2 07/31/2023 3:58 PM CDT [facility] Hours Fasting 2.0 8 - 12 Hours 07/31/2023 3:58 PM CDT [facility] Blood Venipuncture / Unknown 07/31/2023 3:01 PM CDT 07/31/2023 3:04 PM CDT Jessie Roth MD LAB_1 [facility] [address] [place] [address] * Chlamydia & GC (14 Years and Older): Vagina (07/31/2023 2:46 PM CDT) Chlamydia Trachomatis STD Not Detected Not Detected 08/01/2023 1:08 PM CDT [facility] N. gonorrhoeae STD Not Detected Not Detected 08/01/2023 1:08 PM CDT [facility] Swab STD SPECIMEN FROM VAGINA / Unknown Non-blood Collection / Unknown 07/31/2023 2:46 PM CDT 07/31/2023 2:58 PM CDT Narrative [facility] - 08/01/2023 1:08 PM CDT Test performed by Senior Android Developer Mediated Amplification (TMA). Jessie Roth MD LAB_1 Performing Organization Address [facility] Co de Phone Number [facility] [address] * Vaginitis Panel (Includes Bacterial Vaginosis, Liyah Species, Liyah Glabrata and Trichomonas Vaginalis.) (07/31/2023 2:46 PM CDT) Bacterial Vaginosis Negative Negative 08/01/2023 12:26 PM CDT [facility] Liyah species Negative Negative 12:26 PM CDT [facility] Liyah glabrata Negative Negative 08/01/2023 12:26 PM CDT [facility] Trichomonas vaginalis Negative Negative 08/01/2023 12:26 PM CDT [facility] Swab STD SPECIMEN FROM VAGINA / Unknown Non-blood Collection / Unknown 07/31/2023 2:46 PM CDT 07/31/2023 2:58 PM CDT Narrative [facility] - 08/01/2023 12:26 PM CDT Test performed by Senior Android Developer Mediated Amplification (TMA). Jessie Roth MD LAB_1 Performing Organization Address [facility] Co de Phone Number [facility] [address] * Urine Microscopic Evaluation: Clean Catch (07/31/2023 1:49 PM CDT) Red Blood Cells 0-3 0 - 3 /HPF 07/31/2023 2:12 PM CDT [facility] White Blood Cells 0-5 0 - 5 /HPF 07/31/2023 2:12 PM CDT [facility] Bacteria None Seen None Seen /HPF 07/31/2023 2:12 PM CDT [facility] Squamous Epithelial Cells Occasional None Seen, Occasiona l, Few /HPF 07/31/2023 2:12 PM CDT [facility] Urine URINE SPECIMEN COLLECTION, CLEAN CATCH / Unknown Non-blood Collection / Unknown 07/31/2023 1:49 PM CDT 07/31/2023 2:02 PM CDT Izabela Amezcua PA-C LAB_1 Performing Organization Address [facility] Co de Phone Number [facility] [address] [place] [address] * Test (Urine) - Collect in Clinic Today (07/31/2023 1:49 PM CDT) HCG, Urine Negative Negative 07/31/2023 2:06 PM CDT [facility] Urine Non-blood Collection / Unknown 07/31/2023 1:49 PM CDT 07/31/2023 2:01 PM CDT Izabela Amezcua PA-C LAB_1 [facility] [address] [place] [address], [facility] * (ABNORMAL) Urinalysis Routine, Micro/Culture if Pos: Clean Catch (07/31/2023 1:49 PM CDT) Urine Culture Comment Urinalysis results do not meet criteria for urine culture reflex. 07/31/2023 2:12 PM [facility] Urine Color Straw 07/31/2023 2:12 PM [facility] Urine Clarity Clear Clear 07/31/2023 2:12 PM T [facility] Specific [place], Urine 1.010 1.005 - 1.030 07/31/2023 2:12 PM [facility] PH Urine 7.0 5.0 - 8.0 07/31/2023 2:12 PM [facility] Protein, Urine Qual (mg/dL) Negative Neg/Trace 07/31/2023 2:12 PM [facility] Glucose Urine Qual (mg/dL) Negative Negative 07/31/2023 2:12 PM [facility] Ketones, Urine (mg/dL) Negative Negative 07/31/2023 2:12 PM [facility] Urobilinogen, Urine (EU/dL) 0.2 <2.0 07/31/2023 2:12 PM [facility] Bilirubin Urine Negative Negative 07/31/2023 2:12 PM [facility] Blood, Urine Small(A) Neg/Trace 07/31/2023 2:12 PM [facility] Nitrite Urine Negative Negative 07/31/2023 2:12 PM [facility] Leukocyte Est. Negative Negative 07/31/2023 2:12 PM [facility] Urine Source Clean Catch 07/31/2023 2:12 PM [facility] Urine URINE SPECIMEN COLLECTION, CLEAN CATCH / Unknown Non-blood Collection / Unknown 07/31/2023 1:49 PM CDT 07/31/2023 2:02 PM CDT Izabela Amezcua PA-C LAB_1 [facility] [address] [place] [address] documented in this encounter Visit Diagnoses Diagnosis Nausea Nausea alone Vaginal discharge Leukorrhea, not specified as infective Vaginal odor Unspecified symptom associated with female genital organs Screen for STD (sexually transmitted disease) Screening examination for venereal disease Alcohol abuse Alcohol abuse, unspecified Nausea and vomiting, unspecified vomiting type documented in this encounter Administered Medications Inactive Administered Medications - up to 3 most recent administrations Medication Order MAR Action Action Date Dose Rate Site ondansetron (ZOFRAN-ODT) disintegrating tablet 4 mg 4 mg, Oral, ONCE, On Sat07/31/23 at 1415, For 1 dose, Do not swallow tablet whole. Allow to dissolve on the tongue without chewing. Given 07/31/2023 1:51 PM CDT 4 mg documented in this encounter Care Teams Production Lapping Machine Operator Relationship Specialty Start Date End Date Richard Ramachandran, JULIO C, PRIVACY MANAGER [address] [place] [address] PCP - General Nurse Practitioner 05/10/23 documented as of this encounter
--- OUTSIDE RECORDS SUMMARY | 2023-09-20 10:53 | XMS_ITS | Encounter Summary ---
Author Organization [facility] Address [address] [place] [address] Care Team Providers Care Consumer Services Consultant Name Role Phone Richard Ramachandran APRN, STRIP WINDER Primary Care Provide r Encounter Details Date Type Department Care Team (Late st Contact Info) Description 07/17/2023 9:50 AM CDT Lab Visit [facility] [address] [place] [address] Pelvic cramping Social History Tobacco Use Types [...] Procedure Name Priority Date/Time Associated Diagnosis Comments HEMOGLOBIN, BLOOD STAT 07/17/2023 9:4 8 AM CDT Pelvic cramping documented in this encounter Results * Hemoglobin, Blood (07/17/2023 9:48 AM CDT) Hemoglobin 14.4 12.0 - 15.5 g/dL 07/17/2023 9:53 AM CDT [facility] Blood Venipuncture / Unknown 07/17/2023 9:48 AM CDT 07/17/2023 9:51 AM CDT Leonardo Huang PA-C LAB_1 [facility] [address] [place] [address] documented in this encounter Visit Diagnoses Diagnosis Pelvic cramping Unspecified symptom associated with female genital organs documented in this encounter Care Teams Consumer Services Consultant Relationship Specialty Start Date End Date Richard Ramachandran APRN, STRIP WINDER [address] [place] [address] PCP - General Nurse Practitioner 05/10/23 documented as of this encounter
--- OUTSIDE RECORDS SUMMARY | 2023-09-20 10:53 | XMS_ITS | Encounter Summary ---
Author Organization [facility] Address [address] [place] [address] Care Team Providers Care Hydropulper Name Role Phone Richard Ramachandran APRN, MISSION SYSTEMS ENGINEER Primary Care Provide r Reason for Visit * Reason Comments Medication Questions Encounter Details Date Type Department Care Team (Late st Contact Info) Description 06/29/2023 Telephone Careline [address] [place] [address] Unknown, Physician [address] [place], [place] [id number] Medication Questions Social History Tobacco Use Types Packs/Day Years [...] as of this encounter Nursing Notes * Lindsey Dorman RN - 06/29/2023 3:40 PM CDT ???Ethan, my name is Lindsey, a nurse at the [facility] returning a call. The time is 3:40 PM on Saturday the . I will try calling you again within the next half hour, so please keep your phone close by. Thank you.?Ethan. This is Lindsey jo, a nurse from the [facility] returning your call. The time is 3:56 PM on Saturday the . If you would still like to speak with a nurse, please us call back on the original number you called us on and we would be happy to assist you. Thank you.?? Lindsey Bunn RN CareLine 3:56 PM 06/29/2023 * Gema Buitrago - 06/29/2023 12:44 PM CDT Verified patient identity using three identifiers: Yes Caller's relationship to patient: Self, Do you have a provider/clinic where you are seen for this? PN Specialty Medication Questions/New Med Request/ Side Effects What medication are you calling about (name and/or type)? gabapentin (NEURONTIN) 400 MG capsule What is your question/concern? Pharmacy has not received pts prescription. Plan: The current callback time to speak with a nurse is 4hrs. If your symptoms change or worsen, or if you have not received a call back in the stated timeframe, please call us back documented in this encounter Plan of Treatment Not on file documented as of this encounter Visit Diagnoses Not on filedocumented in this encounter Care Teams Hydropulper Relationship Specialty Start Date End Date Richard Ramachandran, JAVA J2EE SOFTWARE ENGINEER, MISSION SYSTEMS ENGINEER [address] [place] [address] PCP - General Nurse Practitioner 05/10/23 documented as of this encounter
--- OUTSIDE RECORDS SUMMARY | 2023-09-20 10:53 | XMS_ITS | Encounter Summary ---
Author Organization [facility] Address [address] [place] [address] Care Team Providers Care Subassembly Assembler Name Role Phone Richard Ramachandran APRN, ADRIANNE Primary Care Provide r Encounter Details Date Type Department Care Team (Late st Contact Info) Description 08/01/2023 E-Visit [facility] [address] [facility]. [place], [place] [address] [place] [address] Social History Tobacco Use Types Packs/Day Years [...] on filedocumented in this encounter Care Teams Subassembly Assembler Relationship Specialty Start Date End Date Richard Ramachandran APRN, TRANSVERSE ABDOMINAL MUSCLE NURSE [address] [place] [address] PCP - General Nurse Practitioner 05/10/23 documented as of this encounter
--- OUTSIDE RECORDS SUMMARY | 2023-09-20 10:53 | XMS_ITS | Encounter Summary ---
Author Organization [facility] Address [address] [place] [address] Care Team Providers Care Dictaphone Transcriber Name Role Phone Richard Ramachandran APRN, SEWING MACHINE OPERATOR SEMIAUTOMATIC Primary Care Provide r Reason for Visit * Reason Comments Appt. Needed Encounter Details Date Type Department Care Team (Late st Contact Info) Description 07/09/2023 Nurse Triage [facility]-HOUSE FURNISHINGS SUPERVISOR [address] [facility], [address] [address] [place] [address] [address] Appt. Needed Social History Tobacco Use Types Packs/Day Years [...] as of this encounter Nursing Notes * Jordana Tadeo RN - 07/09/2023 1:06 PM CDT Reason for Disposition Protocols used: Contraception - IUD Symptoms and [id number] Pt calling in, reports +UPT on 07/07. Had Mirena IUD inserted 06/19. Per dictation note: She had unprotected intercourse on 06/15 and took OTC Plan B on 06/16...She is interested in getting an IUD placedfor emergency contraception and also for long-term control...Recommend return visit in 2wks for IUD string check and repeat test. We discussed how with an IUD in place would be managed, Erika confirms if she were to become she would desire termination. Reports spotting with wiping today. Denies cramping, odor, or fever. Pt leaning towards EAB but isn't sure. Consult scheduled for today. Problem list reviewed as related to this call. Future Appointments Date Time Provider Department Center 07/09/2023 3:30 PM Nya Nance DO [facility] documented in this encounter Plan of Treatment Not on file documented as of this encounter Visit Diagnoses Not on filedocumented in this encounter Care Teams Dictaphone Transcriber Relationship Specialty Start Date End Date Richard Ramachandran, SALES FLOOR TEAM MEMBER, SEWING MACHINE OPERATOR SEMIAUTOMATIC [address] [place] [address] PCP - General Nurse Practitioner 05/10/23 documented as of this encounter
--- OUTSIDE RECORDS SUMMARY | 2023-09-20 10:53 | XMS_ITS | Encounter Summary ---
Author Organization [facility] Address [address] [place] [address] Care Team Providers Care Industrial Maintenance Repairer Helper Name Role Phone Richard Ramachandran APRN, COACH PROFESSIONAL ATHLETES Primary Care Provide r Encounter Details Date Type Department Care Team (Late st Contact Info) Description 07/31/2023 3:00 PM CDT Lab Visit [facility] [address] [place] [address] Nausea; Alcohol abuse; Nausea and vomiting, unspecified vomiting type; Vaginal discharge Social History Tobacco Use Types Packs/Day Years [...] Procedure Name Priority Date/Time Associated Diagnosis Comments CBC AND DIFFERENTIAL PANEL STAT 07/31/2023 3:01 PM CDT Nausea Vaginal discharge Alcohol abuse COMPLETE BLOOD COUNT-W/DIFF STAT 07/31/2023 3:01 PM CDT Nausea Vaginal discharge Alcohol abuse COMPREHENSIVE METABOLIC PANEL STAT 07/31/2023 3:01 PM CDT Nausea Alcohol abuse Nausea and vomiting, unspecified vomiting type documented in this encounter Results * Complete Blood Count-W/Diff (07/31/2023 3:01 PM [facility]) WBC 10.2 3.5 - 10.5 x10(9)/L 07/31/2023 3:08 PM [facility] RBC 4.53 3.90 - 5.03 x10(12)/L 07/31/2023 3:08 PM [facility] Hemoglobin 14.1 12.0 - 15.5 g/dL 07/31/2023 3:08 PM [facility] HCT 42.0 34.9 - 44.5 % 07/31/2023 3:08 PM [facility] MCV 92.7 80.0 - 100.0 fL 07/31/2023 3:08 PM [facility] MCH 31.1 27.6 - 33.3 pg 07/31/2023 3:08 PM [facility] MCHC 33.6 31.5 - 35.2 g/dL 07/31/2023 3:08 PM [facility] RDW 12.6 11.9 - 15.5 % 07/31/2023 3:08 PM [facility] Platelets 275 150 - 450 x10(9)/L 07/31/2023 3:08 PM [facility] Automated NRBC 0 <=0 /100 WBC 07/31/2023 3:08 PM [facility] Neutrophil Absolute 6.9 1.7 - 7.0 10(9)/L 07/31/2023 3:08 PM [facility] Lymphocyte Absolute 2.5 1.0 - 4.8 10(9)/L 07/31/2023 3:08 PM [facility] Monocyte Absolute 0.6 0.2 - 0.9 10(9)/L 07/31/2023 3:08 PM [facility] Eosinophil Absolute 0.1 0.0 - 0.5 10(9)/L 07/31/2023 3:08 PM [facility] Basophil Absolute 0.1 0.0 - 0.3 10(9)/L 07/31/2023 3:08 PM [facility] Immature Granulocyte % 0.4 0.0 - 0.5 % 07/31/2023 3:08 PM [facility] Blood Venipuncture / Unknown 07/31/2023 3:01 PM CDT 07/31/2023 3:04 PM CDT Jessie Roth MD [facility] [address] [place] [address] * Comp Metabolic Panel (07/31/2023 3:01 PM CDT) Sodium 140 136 - 145 mmol/L 07/31/2023 3:58 PM [facility] Potassium 4.3 3.5 - 5.1 mmol/L 07/31/2023 3:58 PM [facility] Chloride 106 98 - 109 mmol/L 07/31/2023 3:58 PM [facility] CO2 25 20 - 29 mmol/L 07/31/2023 3:58 PM [facility] Anion Gap 9 6 - 16 mmol/L 07/31/2023 3:58 PM [facility] Calcium 9.7 8.4 - 10.4 mg/dL 07/31/2023 3:58 PM [facility] BUN 12 7 - 26 mg/dL 07/31/2023 3:58 PM [facility] Creatinine 0.91 0.55 - 1.02 mg/dL 07/31/2023 3:58 PM [facility] Alkaline Phosphatase 68 40 - 150 U/L 07/31/2023 3:58 PM [facility] AST (SGOT) 21 10 - 40 U/L 07/31/2023 3:58 PM [facility] ALT (SGPT) 21 <=55 U/L 07/31/2023 3:58 PM [facility] Bilirubin, Total 0.3 0.2 - 1.2 mg/dL 07/31/2023 3:58 PM [facility] Protein, Total 6.7 6.4 - 8.3 g/dL 07/31/2023 3:58 PM [facility] Albumin 4.0 3.5 - 5.0 g/dL 07/31/2023 3:58 PM [facility] Glucose 89 70 - 100 mg/dL 07/31/2023 3:58 PM [facility] Comment:The given reference range is for the fasting state. Non-fasting reference range for glucose is 70 - 180 mg/dL. GFR, Estimated >60 >60 mL/min/1.7 3m2 07/31/2023 3:58 PM [facility] Hours Fasting 2.0 8 - 12 Hours 07/31/2023 3:58 PM [facility] Blood Venipuncture / Unknown 07/31/2023 3:01 PM CDT 07/31/2023 3:04 PM CDT Jessie Roth MD [facility] [address] [place] [address] documented in this encounter Visit Diagnoses Diagnosis Nausea Nausea alone Alcohol abuse Alcohol abuse, unspecified Nausea and vomiting, unspecified vomiting type Vaginal discharge Leukorrhea, not specified as infective documented in this encounter Care Teams Industrial Maintenance Repairer Helper Relationship Specialty Start Date End Date Richard Ramachandran, ROUTER TENDER, COACH PROFESSIONAL ATHLETES [address] [place] [address] PCP - General Nurse Practitioner 05/10/23 documented as of this encounter
--- OUTSIDE RECORDS SUMMARY | 2023-09-20 10:53 | XMS_ITS | Encounter Summary ---
Author Organization [facility] Address [address] [place] [address] Care Team Providers Care Living Coach Name Role Phone Richard Ramachandran APRN, ADRIANNE Primary Care Provide r Reason for Visit * Reason Comments CONSULT Encounter Details Date Type Department Care Team (Late st Contact Info) Description 07/09/2023 3:30 PM CDT Office Visit [facility]-DIRECTOR PUBLIC [address] [facility], [address] [place] [address] [place] [address] [address] IUD (intrauterine device) in place (Primary Dx); Positive test; IUD check up; Dysmenorrhea Social History Tobacco Use Types Packs/Day Years [...] Sign Reading Time Taken Comments Blood Pressure 132/72 07/09/2023 3:07 PM CDT Pulse 84 07/09/2023 3:07 PM CDT Temperature - - Respiratory Rate - - Oxygen Saturation - - Inhaled Oxygen Concentration - - Weight 96.2 kg (212 lb) 07/09/2023 3:07 PM CDT Height - - Body Mass Index 36.39 07/01/2023 1:07 PM CDT documented in this encounter Progress Notes * Nya Nance, DO - 07/09/2023 3:30 PM CDT [facility] Chief Complaint Patient presents with CONSULT History of Present Illness: Erika Snowden is a 23 y.o. female using IUD: Mirena for contraception here for CONSULT .she is here due to a positive home test with an IUD in place. She had the mirena IUD placed on 06/19 after she unprotected sex on 06/15 and took plan B on 06/16. She understood when IUD was placed that she could be but it could be used for emergency contraception. She was told to follow up for IUD check and in clinic in 2 weeks. She had a positive test on Saturday. She has had cramping since. She had spotting on Saturday. She took a second one on Saturday night that was negative. She called the nurse line today and wastold to come in. She states no spotting today. She has not felt for the IUD strings herself. She states the IUD cramping/pain was awful for the first hour after placement. The pain since then has been fine. If she was she is still leaning towards EAB. Current Outpatient Medications Medication Sig ARIPiprazole (ABILIFY) 10 MG tablet TAKE 1 TABLET(10 MG) BY MOUTH DAILY clindamycin (CLEOCIN T) 1 % lotion APPLY TOPICALLY TO THE AFFECTED AREA DAILY gabapentin (NEURONTIN) 400 MG capsule TAKE 1 CAPSULE(400 MG) BY MOUTH THREE TIMES DAILY levonorgestrel (MIRENA) 20 MCG/DAY IUD 1 Each by Intrauterine route continuous. naltrexone (REVIA) 50 MG tablet Take 1 Tablet (50 mg) by mouth daily at bedtime. sertraline (ZOLOFT) 50 MG tablet TAKE 1 TABLET BY MOUTH DAILY traZODone (DESYREL) 50 MG tablet Take 0.5-1 Tablets (25-50 mg) by mouth at bedtime as needed for Sleep. tretinoin (RETIN-A) 0.05 % cream APPLY TOPICALLY TO THE AFFECTED AREA EVERY EVENING Allergies Allergen Reactions Lamotrigine Hives Oxycodone Nausea And Vomiting Wellbutrin [Bupropion] Other, see comments Suicidal thoughts. OB History Para Term AB Living 0 0 0 0 0 0 SAB IAB Ectopic Multiple Live Births 0 0 0 0 0 Patient Active Problem List Diagnosis Allergic rhinitis due to pollen ALBERTO (generalized anxiety disorder) ([facility]) Bipolar 1 disorder ([facility]) Moderate episode of recurrent major depressive disorder ([facility]) Dysmenorrhea Mild mixed bipolar II disorder ([facility]) Alcohol use disorder, moderate, in early remission ([facility]) Substance dependence, in remission ([facility]) Dyssomnia Borderline personality disorder ([facility]) Other specified persistent mood disorders ([facility]) IUD (intrauterine device) in place Past Medical History: Diagnosis Date Alcoholism in recovery ([facility]) 10/29/2018 Allergic rhinitis due to pollen 09/21/2011 Chlamydia infection ([facility]) 10/29/2018 Depression, major, single episode, moderate ([facility]) 03/03/2015 ALBERTO (generalized anxiety disorder) ([facility]) 03/03/2015 Gonorrhea 09/04/2019 Treated Intrauterine device surveillance 10/29/2018 Mild mixed bipolar II disorder ([facility]) 12/07/2016 Past Surgical History: Procedure Laterality Date TONSILLECTOMY Bilateral 09/15/2014 Dr. Pinon Family History Problem Relation Age of Onset Allergies Mother Allergies Father Amblyopia/Strabismus Negative Family History Blindness Negative Family History Cataract Negative Family History Glaucoma Negative Family History Macular Degeneration Negative Family History Retinal Detachment Negative Family History Cancer, Breast Negative Family History Cancer, Colon Negative Family History Cancer, Ovary Negative Family History Social History Tobacco Use Smoking status: Former Current packs/day: 0.25 Average packs/day: 0.3 packs/day for 1 year (0.3 ttl pk-yrs) Types: Cigarettes Smokeless tobacco: Never Tobacco comments: juuls Vaping Use Vaping status: Every Day Substances: Flavoring, Nicotine-salt Substance Use Topics Alcohol use: Not Currently Drug use: Not Currently Types: Marijuana Review of Systems: CONSTITUTIONAL: Negative GENITOURINARY: no dysuria, (Positive for spotting/cramping) Physical Examination: BP 132/72 (BP Location: Right Arm, BP Cuff Size: Large) Pulse 84 Wt 212 lb (96.2 kg) LMP 06/02/2023 (Approximate) Comment: Mirena No BMI 36.39 kg/m?? Estimated body mass index is 36.39 kg/m?? as calculated from the following: Height as of 07/01/23: 5' 4 (1.626 m). Weight as of this encounter: 212 lb (96.2 kg). Physical Examination: General appearance - alert, well appearing, and in no distress Mental status - alert, oriented to person, place, and time Pelvic - VULVA: normal appearing vulva with no masses, tenderness or lesions, VAGINA: normal appearing vagina with normal color and discharge, no lesions, CERVIX: IUD strings felt on exam (bimanual but declined speculum exam), UTERUS: uterus is normal size, shape, consistency and nontender, ADNEXA:normal adnexa in size, nontender and no masses, Assessment/Plan: 23 y.o. female with Erika was seen today for consult. Diagnoses and all orders for this visit: IUD (intrauterine device) in place Positive test - HCG, Quantitative, Serum ; Standing IUD check up Dysmenorrhea I reviewed that I would recommend a quantitative hcg level today and repeat in 48-72 hours if positive. If negative, she can be reassured. We did review that if she is , the IUD would need tocome out either way. - Return to clinic PRN depending on blood work Nya Nance DO 07/09/2023 3:42 PM documented in this encounter Plan of Treatment Scheduled Orders Name Type Priority Associated Diagnoses Orde r Schedule HCG, Quantitative, Serum Lab STAT Positive test 2 Occurrences starting 07/09/2023 until 07/08/2024, 1 completed documented as of this encounter Results * HCG, Quantitative, Serum (07/09/2023 3:47 PM CDT) HCG, Quantitative <2 <=4 mIU/mL 024 8:27 PM CDT [facility] Blood Venipuncture / Unknown 07/09/2023 3:47 PM CDT 07/09/2023 3:47 PM CDT Narrative [facility] - 07/09/2023 8:27 PM CDT Expected ranges Negative: <5 mIU/mL Indeterminate: 5-25 mIU/mL Positive: >25 mIU/mL Suggest repeat testing of indeterminate result in 72 hours. Nya Nance DO LAB_1 [facility] [address] documented in this encounter Visit Diagnoses Diagnosis IUD (intrauterine device) in place- Primary Presence of intrauterine contraceptive device Positive test examination or test, positive result IUD check up Surveillance of previously prescribed intrauterine contraceptive device Dysmenorrhea documented in this encounter Care Teams Living Coach Relationship Specialty Start Date End Date Richard Ramachandran, BRIDGE GAME DIRECTOR, PIEROGI MAKER [address] [place] [address] PCP - General Nurse Practitioner 05/10/23 documented as of this encounter
--- OUTSIDE RECORDS SUMMARY | 2023-09-20 10:53 | XMS_ITS | Encounter Summary ---
Author Organization [facility] Address [address] [place] [address] Care Team Providers Care Photonic Laboratory Technician Name Role Phone Richard Ramachandran APRN, HAND STONE POLISHER Primary Care Provide r Reason for Visit * Reason Comments Test Results Encounter Details Date Type Department Care Team (Late st Contact Info) Description 06/21/2023 Telephone [facility]-FINAL INSPECTOR MOTORCYLES [address] [address] [place] [address] [address] Test Results Social History Tobacco Use Types Packs/Day Years [...] as of this encounter Nursing Notes * Aleksandra Sky RN - 06/21/2023 12:53 PM CDT Patient returning call. Message from provider given, see note. Patient verbalizes understanding andhas no further questions or concerns. She will schedule f/u online when she has her work schedule. * Lisette Degroot - 06/21/2023 12:50 PM CDT LMTCB * Lisette Degroot - 06/21/2023 12:49 PM CDT ----- Message from Earnestine Jennings MD sent at 06/21/2023 12:41 PM CDT ----- Please let Erika know her STI testing was negative. She needs to have a follow up visit in 2wks for string check and repeat test. Thanks! Earnestine ----- Message ----- From: Lab Background Sent: 06/21/2023 12:40 PM CDT To: Earnestine Jennings MD documented in this encounter Plan of Treatment Not on file documented as of this encounter Visit Diagnoses Not on filedocumented in this encounter Care Teams Photonic Laboratory Technician Relationship Specialty Start Date End Date Richard Ramachandran APRN, HAND STONE POLISHER [address] [place] [address] PCP - General Nurse Practitioner 05/10/23 documented as of this encounter
--- OUTSIDE RECORDS SUMMARY | 2023-09-20 10:53 | XMS_ITS | Encounter Summary ---
Author Organization [facility] Address [address] [place] [address] Care Team Providers Care Primary Care Physician Name Role Phone Richard Ramachandran APRN, AIRBORNE ELECTRONICS ANALYST Primary Care Provide r Reason for Visit * Reason Onset Date Comments Refill clindamycin (NESSA OCIN T) 1 % lotion [Pharmacy Med Name: CLINDAMYCIN 1% LOTION 60ML] Unable to Refill Medication 07/31/2023 Encounter Details Date Type Department Care Team (Late st Contact Info) Description 07/31/2023 Refill [facility] [address] [place] [address]. [place], [place] [id number] Malcolm Viveros MD [address] [place] [id number] Refill (clindamycin (CLEOCIN T) 1 % lotion [Pharmacy Med Name: CLINDAMYCIN 1% LOTION 60ML]); Unable to Refill Medication Social History Tobacco Use Types Packs/Day Years [...] as of this encounter Nursing Notes * Alexandru Martinez Xrwcomm - 07/31/2023 3:31 PM CDT clindamycin (CLEOCIN T) 1 % lotion [Pharmacy Med Name: CLINDAMYCIN 1% LOTION 60ML] None Exists -> Medication cannot be delegated. -> A qualifying visit was not found within the last 2 years. Last qualifying visit: None Next scheduled visit: None Last ordered by MALCOLM VIVEROS: 12/27/2022 (216 days ago) QTY: 60, Refills: 3, Sig: apply topically to the affected area daily (unchanged) [employer] Embedded Refills, Reference: [id number], 07/31/2023 3:31:37 PM CDT, Pool: DAVID DermRefgabino RN ([id number]) * Keo Miguel RN - 07/31/2023 3:31 PM CDT Refill Request Denied: Requested Prescriptions Pending Prescriptions Disp Refills clindamycin (CLEOCIN T) 1 % lotion [Pharmacy Med Name: CLINDAMYCIN 1% LOTION 60ML] 60 mL 3 Sig: APPLY TOPICALLY TO THE AFFECTED AREA DAILY Action taken by Triage: Has been over 2 years since last appointment 2 Last Visit Maximum visits displayed: 1 Date Type Department Provider Description 06/14/2021 Office Visit [facility] Malcolm Viveros MD Acne, unspecified acne type (Primary Dx); Compound nevus of... Follow-up interval per last visit note: PRN Date(s) of failed/cancelled Derm appt: There are no future appointments scheduled for this specialty. Jimy Whitmore RN 07/31/2023 documented in this encounter Plan of Treatment Not on file documented as of this encounter Visit Diagnoses Diagnosis Acne, unspecified acne type documented in this encounter Care Teams Primary Care Physician Relationship Specialty Start Date End Date Richard Ramachandran, TANNING SALON ATTENDANT, AIRBORNE ELECTRONICS ANALYST [address] [place] [address] PCP - General Nurse Practitioner 05/10/23 documented as of this encounter
--- OUTSIDE RECORDS SUMMARY | 2023-09-20 10:53 | XMS_ITS | Encounter Summary ---
Author Organization [facility] Address [address] [place] [address] Care Team Providers Care Concrete Technician Name Role Phone Richard Ramachandran APRN, HEATING ELEMENT REPAIRER Primary Care Provide r Reason for Visit * Reason Comments Refill Encounter Details Date Type Department Care Team (Late st Contact Info) Description 06/25/2023 Refill [facility] [address] [facility] [place] [address] Amelia Britton MD [address] [place] [address] Refill Social History Tobacco Use Types Packs/Day [...] Nursing Notes * Pricila Lopez RN - 07/01/2023 12:44 PM CDT Refilled according to medication refill protocol. Ordered in appropriate time frame, follow up appointment scheduled. * Adelina Quach - 07/01/2023 10:33 AM CDT Pt checking on refill status, she is out of Gabapentin documented in this encounter Plan of Treatment Not on file documented as of this encounter Visit Diagnoses Diagnosis ALBERTO (generalized anxiety disorder) ([facility]) Generalized anxiety disorder Mild mixed bipolar II disorder ([facility]) Other bipolar disorders documented in this encounter Care Teams Concrete Technician Relationship Specialty Start Date End Date Richard Ramachandran, CONDITIONING COACH, HEATING ELEMENT REPAIRER [address] [place] [address] PCP - General Nurse Practitioner 05/10/23 documented as of this encounter
--- OUTSIDE RECORDS SUMMARY | 2023-09-20 10:53 | XMS_ITS | Encounter Summary ---
Author Organization [facility] Address [address] [place] [address] Care Team Providers Care Receiver Setter Name Role Phone Richard Ramachandran APRN, AIR DEFENSE ARTILLERY OFFICER Primary Care Provide r Encounter Details Date Type Department Care Team (Late st Contact Info) Description 07/01/2023 12:40 PM CDT Lab Visit [facility] [address] [place] [address] Dysuria (Primary Dx); Routine screening for STI (sexually transmitted infection) Social History Tobacco Use Types Packs/Day Years [...] as of this encounter Plan of Treatment Scheduled Orders Name Type Priority Associated Diagnoses Orde r Schedule UA Micro If: Clean Catch Lab Routine Dysuria Expected: 07/01/2023, Expires: 09/29/2023 Urine Culture Microbiology Routine Dysuria Expected: 07/01/2023, Expires: 09/29/2023 documented as of this encounter Procedures Procedure Name Priority Date/Time Associated Diagnosis Comments RPR WITH REFLEX TO TITER Routine 07/01/2023 12:25 PM CDT Routine screening for STI (sexually transmitted infection) HIV 1/2 AG/AB 4TH GEN Routine 07/01/2023 12:25 PM CDT Routine screening for STI (sexually transmitted infection) HEPATITIS C ANTIBODY, WITH REFLEX Routine 07/01/2023 12:25 PM CDT Routine screening for STI (sexually transmitted infection) HBSAG (HEPATITIS B SURFACE AG) Routine 07/01/2023 12:25 PM CDT Routine screening for STI (sexually transmitted infection) documented in this encounter Results * HIV 1/2 Ag/Ab 4th Generation (07/01/2023 12:25 PM CDT) HIV 1/2 Antigen/Antib kaylene (4th generation) Negative (Non Reactive) Negative (Non Reactive) 07/01/2023 8:24 PM CDT [facility] Comment:HIV-1 p24 Antigen an d HIV-1/HIV-2 Antibody not detected Blood Venipuncture / Unknown 07/01/2023 12:25 PM CDT 07/01/2023 12:40 PM CDT Earnestine Jennings MD LAB_1 Performing Organization Address [facility] Co de Phone Number [facility] [address] [place] [address] * Hepatitis C Antibody, with Reflex (07/01/2023 12:25 PM CDT) Hepatitis C Antibody Negative (Non Reactive) Negative (Non Reactive) 07/01/2023 8:24 PM CDT [facility] Comment:Antibodies to HCV no t detected. Does not exclude the possiblity of exposure to HCV. Blood Venipuncture / Unknown 07/01/2023 12:25 PM CDT 07/01/2023 12:40 PM CDT Earnestine Jennings MD LAB_1 Performing Organization Address City/[facility]/ZIP Co de Phone Number [facility] [address] [place] [address] * Hepatitis B Surface Antigen (07/01/2023 12:25 PM CDT) Hepatitis B Surface Antigen Negative (Non Reactive) Negative (Non Reactive) 07/01/2023 8:40 PM CDT [facility] Blood Venipuncture / Unknown 07/01/2023 12:25 PM CDT 07/01/2023 12:40 PM CDT Earnestine Jennings MD LAB_1 Performing Organization Address City/[facility]/ZIP Co de Phone Number [facility] [address] * RPR with Reflex to Titer (07/01/2023 12:25 PM CDT) Pathologist [facility] RAPID PLASMA REAGIN (RPR) Non Reactive Non Reactive 07/03/2023 10:02 AM CDT [facility] Comment: Rapid Plasma Reagin screening test is Non-Reactive. No further reflex testing is required. Performed By: [facility] [address] [place] [address] Color Paste Mixer: Colten Hunt MD, PhD CLIA Number: [id number] Blood Venipuncture / Unknown 07/01/2023 12:25 PM CDT 07/01/2023 12:40 PM CDT Earnestine Jnenings MD LAB_1 Performing Organization Address [facility] de Phone Number [facility] [address] [place], [place] [address] [place] [address] documented in this encounter Visit Diagnoses Diagnosis Dysuria- Primary Routine screening for STI (sexually transmitted infection) Screening examination for venereal disease documented in this encounter Care Teams Receiver Setter Relationship Specialty Start Date End Date Richard Ramachandran, CHILDREN'S LIBRARIAN, AIR DEFENSE ARTILLERY OFFICER [address] [place] [address] PCP - General Nurse Practitioner 05/10/23 documented as of this encounter
--- OUTSIDE RECORDS SUMMARY | 2023-09-20 10:53 | XMS_ITS | Encounter Summary ---
Author Organization [employer] Address [address] [place] [address] Care Team Providers Care Landcare Officer Name Role Phone Richard Ramachandran APRN, ADRIANNE Primary Care Provide r Encounter Details Date Type Department Care Team (Late st Contact Info) Description 07/09/2023 2:40 PM CDT Lab Visit [facility] [id number] [place] [address], [address] [address] Unconfirmed Social History Tobacco Use Types Packs/Day Years [...] Date/Time Associated Diagnosis Comments TEST (URINE) Waiting 07/09/2023 2:40 PM CDT Unconfirmed documented in this encounter Results * Test (Urine) (07/09/2023 2:40 PM CDT) HCG, Urine Negative Negative 07/09/2023 2:48 PM CDT [facility] Urine Non-blood Collection / Unknown 07/09/2023 2:40 PM CDT 07/09/2023 2:40 PM CDT Nya Nance DO LAB_1 [facility] [address] [place] [address], [facility] documented in this encounter Visit Diagnoses Diagnosis Unconfirmed examination or test, unconfirmed documented in this encounter Care Teams Landcare Officer Relationship Specialty Start Date End Date Richard Ramachandran, MEAT COUNTER CLERK, INSPECTOR PAPER PRODUCTS [address] [place] [address] PCP - General Nurse Practitioner 05/10/23 documented as of this encounter
--- OUTSIDE RECORDS SUMMARY | 2023-09-20 10:53 | XMS_ITS | Encounter Summary ---
Author Organization [facility] Address [address] [place] [address] Care Team Providers Care Car Bracer Name Role Phone Richard Ramachandran APRN, ADRIANNE Primary Care Provide r Encounter Details Date Type Department Care Team (Late st Contact Info) Description 07/09/2023 Notes/Orders [facility] [address] [facility], [facility] [address] [place] [address] [place] [address] [address] Unconfirmed (Primary Dx) Social History Tobacco Use Types [...] documented as of this encounter Results * Test (Urine) (07/09/2023 2:40 PM CDT) HCG, Urine Negative Negative 07/09/2023 2:48 PM CDT [facility] Urine Non-blood Collection / Unknown 07/09/2023 2:40 PM CDT 07/09/2023 2:40 PM CDT Nya Nance DO LAB_1 [facility] [address] [place] [place] [place] [address], [facility] documented in this encounter Visit Diagnoses Diagnosis Unconfirmed - Primary examination or test, unconfirmed documented in this encounter Care Teams Car Bracer Relationship Specialty Start Date End Date Richard Ramachandran, SENIOR DATA QUALITY ANALYST, PUBLIC AFFAIRS OFFICER [address] [place] [address] PCP - General Nurse Practitioner 05/10/23 documented as of this encounter
--- OUTSIDE RECORDS SUMMARY | 2023-09-20 10:53 | XMS_ITS | Encounter Summary ---
Author Organization [employer] Address [address] [place] [address] Care Team Providers Care Conference Services Coordinator Name Role Phone Richard Ramachandran APRN, RECONNAISSANCE CREWMEMBER Primary Care Provide r Reason for Visit * Reason Comments STD CHECK--ED Encounter Details Date Type Department Care Team (Late st Contact Info) Description 07/17/2023 9:20 AM CDT [facility] [address] [place] [address] Leonardo Huang, PA-C [address] [place], [place] [id number] Pelvic cramping; Vagina bleeding; Gonorrhea Social History Tobacco Use Types Packs/Day [...] Sign Reading Time Taken Comments Blood Pressure 140/63 07/17/2023 9:10 AM CDT Pulse 63 07/17/2023 9:10 AM CDT Temperature 37 ??C (98.6 ??F) 07/17/2023 9:10 AM CDT Respiratory Rate 16 07/17/2023 9:10 AM CDT Oxygen Saturation 99% 07/17/2023 9:10 AM CDT Inhaled Oxygen Concentration - - Weight - - Height - - Body Mass Index - - documented in this encounter Progress Notes * Whitney Rodriguez RN - 07/17/2023 9:20 AM CDTAddended by: WHITNEY RODRIGUEZ on: 07/18/2023 11:57 AM Modules accepted: Orders * Leonardo Huang PA-C - 07/17/2023 9:20 AM CDT dict * Leonardo Huang PA-C - 07/17/2023 12:00 AM CDT NAME: AJ CLAROS CSN: [id number] CLINIC NOTE DATE OF SERVICE: 07/17/2023 : 2000 SUBJECTIVE: This is a 23-year-old female who presents with some pelvic cramping, vaginal bleeding, and requesting STD testing. Patient states that she has had a Mirena IUD placed 2 months ago. She had a little bit of vaginal bleeding for a couple of days after that, and then she started to notice that she would get vaginal bleeding about 10 days ago. It has been lasting about 10 days. She is going through about 4 tampons a day. They are about half saturated, but since she has been bleeding for 10 days, she wanted to be evaluated. She has noticed she is getting kind of some central suprapubic cramping-type pain, feels like a menstrual cramp, but normally she gets that more near kind of the adnexa as opposed to the central portion of the suprapubic area. She has had no vaginal discharge, but she does have a new sexual partner, so she would like to be tested for STDs. She did have HIV, syphilis, hepatitis testing a few weeks ago. She would just like to have gonorrhea and chlamydia testing and a vaginitis panel done. She has had no fever or chills. No problems with urination. She had negative testing last week. She was seen by an REMOTE BROADCAST ENGINEER last week and they told her that the strings were in place, but she is concerned because she is still having the vaginal bleeding and the pelvic cramping. No fever or chills. No other problems. COMPLETE REVIEW OF SYSTEMS: Otherwise negative except for noted above. PAST MEDICAL HISTORY: Reviewed in [facility]. SURGICAL HISTORY: Reviewed in [facility]. SOCIAL HISTORY: Reviewed in [facility]. ALLERGIES: REVIEWED IN [facility]. MEDICATIONS: Reviewed in [facility]. VITAL SIGNS: Reviewed in [facility]. PHYSICAL EXAMINATION: GENERAL: Well-developed, well-nourished female, in no apparent distress. SKIN: Warm and dry. EYES: Sclerae are nonicteric. Conjunctivae are not injected. LUNGS: Clear throughout. HEART: Regular rate and rhythm. BACK: Negative CVAT. ABDOMEN: Shows some suprapubic discomfort, but no true tenderness. No palpable masses or organomegaly. No rebound tenderness or muscle guarding. Since the patient just had a pelvic exam last week, that was deferred by the patient. She did do a self swab for GC, chlamydia, and vaginitis panel, but because of the bleeding for 10 days, I spoke with the REMOTE BROADCAST ENGINEER doctor airport operations specialist who said that it can be normal for her to have kind of irregular bleeding on and off for up to about 3 months after the IUD is placed. He did suggest doing a hemoglobin and an ultrasound for IUD placement. Hemoglobin was normal. The IUD was in place on the ultrasound exam. ASSESSMENT: 1.Pelvic cramping. 2.Vaginal bleeding. PLAN: I reassured the patient if any of her other tests are abnormal, she will be contacted. We talked about appropriate [id number] treatments. If she develops new or worsening symptoms or other problems, she should be re- evaluated. Patient was agreeable to this plan, left in stable condition. ANDRESSA FAGAN/MORIAH /[id number] documented in this encounter Nursing Notes * Terri Velasquez RN - 07/17/2023 9:20 AM CDT Aj Claros is a 23 y.o.female presents to the Urgent Care for STD CHECK--ED Pt states she has had her period- Vaginal bleeding and cramps- for 1.5 weeks. She just got her IUD placed around 2 months ago. Hx chlamydia and wants to be checked for that again. New sexual partner. Patient requests an excuse letter for work/school: No documented in this encounter Plan of Treatment Not on file documented as of this encounter Procedures Procedure Name Priority Date/Time Associated Diagnosis Comments VAGINITIS PANEL Routine 07/17/2023 9:22 AM CDT Pelvic cramping CHLAMYDIA & GC (14 YEARS & OLDER) Routine 07/17/2023 9:22 AM CDT Pelvic cramping documented in this encounter Results * Hemoglobin, Blood (07/17/2023 9:48 AM CDT) Hemoglobin 14.4 12.0 - 15.5 g/dL 07/17/2023 9:53 AM CDT [facility] Blood Venipuncture / Unknown 07/17/2023 9:48 AM CDT 07/17/2023 9:51 AM CDT Leonardo Huang PA-C LAB_1 [facility] [address] [place] [address], [facility] * (ABNORMAL) Chlamydia & GC (14 Years and Older): Vagina (07/17/2023 9:22 AM CDT) Chlamydia Trachomatis STD Not Detected Not Detected 07/18/2023 2:10 AM CDT [facility] N. gonorrhoeae STD Detected(A) Not Detected 07/18/2023 2:10 AM CDT [facility] Swab STD SPECIMEN FROM VAGINA / Unknown Non-blood Collection / Unknown 07/17/2023 9:22 AM CDT 07/17/2023 11:01 AM CDT [facility] - 07/18/2023 2:10 AM CDT Test performed by Lithographic Photographer Mediated Amplification (TMA). Leonardo Huang PA-C LAB_1 Performing Organization Address [facility] Co de Phone Number [facility] [address] * Vaginitis Panel (Includes Bacterial Vaginosis, Liyah Species, Liyah Glabrata and Trichomonas Vaginalis.) (07/17/2023 9:22 AM CDT) Bacterial Vaginosis Negative Negative 07/18/2023 12:08 AM CDT [facility] Liyah species Negative Negative 12:08 AM CDT [facility] Liyah glabrata Negative Negative 07/18/2023 12:08 AM CDT [facility] Trichomonas vaginalis Negative Negative 07/18/2023 12:08 AM CDT [facility] Swab STD SPECIMEN FROM VAGINA / Unknown Non-blood Collection / Unknown 07/17/2023 9:22 AM CDT 07/17/2023 11:01 AM CDT [facility] - 07/18/2023 12:08 AM CDT Test performed by Lithographic Photographer Mediated Amplification (TMA). Leonardo Huang PA-C LAB_1 Performing Organization Address [facility] Co de Phone Number [facility] [address] documented in this encounter Visit Diagnoses Diagnosis Pelvic cramping Unspecified symptom associated with female genital organs Vagina bleeding Other specified noninflammatory disorder of vagina Gonorrhea Gonococcal infection (acute) of lower genitourinary tract documented in this encounter Care Teams Conference Services Coordinator Relationship Specialty Start Date End Date Richard Ramachandran, ORDER PACKER OR PACKAGER, RECONNAISSANCE CREWMEMBER [address] [place] [address] PCP - General Nurse Practitioner 05/10/23 documented as of this encounter
--- OUTSIDE RECORDS SUMMARY | 2023-09-20 10:53 | XMS_ITS | Encounter Summary ---
Author Organization [facility] Address [address] [place] [address] Care Team Providers Care Head Of Geography Name Role Phone Richard Ramachandran APRN, CLINICAL PSYCHOLOGIST PRIVATE PRACTICE Primary Care Provide r Reason for Visit * Reason Comments MEDICATION, NOS Encounter Details Date Type Department Care Team (Late st Contact Info) Description 08/11/2023 Nurse Triage Careline [address] [place], [place] [phone] Unassigned, Provider [address] [place] [address] MEDICATION, NOS Social History Tobacco Use Types Packs/Day Years [...] as of this encounter Nursing Notes * Yesi Boykin - 08/11/2023 12:51 PM CDT Clinician: Review and advise Patient/youth care professional request: Input needed: ongoing symptoms Specific Request: Provider consultation requested Please see details below and follow up with patient. Thank you Verified patient identity: Yes Situation/Background (brief explanation of current symptoms/situation): Pt calling to report she is needing a refill of Gabapentin and Sertraline. Pt states she has 1 tablet left of Sertraline and completely out of Gabapentin. Pt states she understands she missed her last appointment but is in the process of switching to an outside facility. Patient is worried about withdrawal symptoms if she does not get her Gabapentin in the meantime. Reviewed with patient pertinent medical history (as it related to the call): Yes Reviewed with patient pertinent medications (as they relate to call): Yes Reviewed with patient pertinent allergies (as they relate to call): Yes ???john Long is a nurse at the [facility] returning a call. The time is 1:01 PM 08/11/23. I will try calling you again shortly. If you don't feel comfortable or safe waiting for my return call, then please call us back on the original number you called us on. I will try to reach you again shortly. Thank you.?? Yesi Portillo RN CareLine 1:01 PM 08/11/2023 PLAN: Per provider's note from visit on 03/19/23 follow up in 3 months. Patient was scheduled for July 01 but no showed. Patient informed functional tester typewriters unable to refill prescription via nurse line. Pt informed functional tester typewriters will send a high priority message to care team to follow up. Opportunity to ask/answer questions provided. Advised patient/caller to call back CareLine if there are further questions or concerns. The CareLine is available 10/09. Yesi Lanier RN CareLine 1:23 PM 08/11/2023 * Gudelia Egan - 08/11/2023 11:51 AM CDT Verified patient identity using three identifiers: Yes Caller's relationship to patient: Self, Do you have a provider/clinic where you are seen for this? [facility] Medication Refill What is the name of the medication you are requesting for refill? Gabapentin and Sertraline Who last prescribed this medication for you (provider and/or clinic)? [place] [facility]rist Amelia Britton MD Have you requested this refill from your clinic? Yes You may have refills remaining on your original prescription. Have you contacted your pharmacy to request a refill? Yes Is the clinic open? No Do you have enough medication to last until the clinic opens? No Plan: I will send this message to have a nurse call you back. I am not sure if the nurse can refillthe medication requested, the nurse will discuss that with you when they call. The current call back time to speak with a nurse is 2 hrs. Please verify your pharmacy's hours for today before the nurse calls you back. If you develop symptoms or current symptoms worsen or if you have not received a call back in the stated timeframe, please call us back. Route to [facility] Patient Call Back Pool documented in this encounter Plan of Treatment Not on file documented as of this encounter Visit Diagnoses Not on filedocumented in this encounter Care Teams Head Of Geography Relationship Specialty Start Date End Date Richard Ramachandran, JULIO C, CLINICAL PSYCHOLOGIST [facility]IVATE PRACTICE [address] [place] [address] PCP - General Nurse Practitioner 05/10/23 documented as of this encounter
--- OUTSIDE RECORDS SUMMARY | 2023-09-20 10:54 | XMS_ITS | Encounter Summary ---
Author Organization [employer] Address [address] [place] [address] Care Team Providers Care Public Health Nutritionist Name Role Phone Richard Ramachandran APRN, CNP Primary Care Provide r Reason for Visit * Reason Comments Refill Encounter Details Date Type Department Care Team (Late st Contact Info) Description 05/19/[address] [facility] [address] [place] [address] Amelia Britton MD [address] [place] [address] Refill Social History Tobacco Use Types Packs/Day [...] disorder documented in this encounter Care Teams Public Health Nutritionist Relationship Specialty Start Date End Date Richard Ramachandran APRN, CNP [address] [place] [address] PCP - General Nurse Practitioner 05/10/23 documented as of this encounter
--- OUTSIDE RECORDS SUMMARY | 2023-09-20 10:54 | XMS_ITS | Encounter Summary ---
Author Organization [employer] Address [address] [place] [address] Care Team Providers Care Bale Sewer Name Role Phone Richard Ramachandran APRN, ADRIANNE Primary Care Provide r Reason for Visit * Reason Comments CONSULT IUD insertion? Encounter Details Date Type Department Care Team (Late st Contact Info) Description 06/20/2023 9:00 AM CDT Office Visit [facility]PERSONNEL SCHEDULER [address] [phone] [place] [id number] [address] Pre-procedure lab exam (Primary Dx); Screening for cervical cancer; Routine screening for STI (sexually transmitted infection); Encounter for insertion of intrauterine contraceptive device Social History Tobacco Use Types Packs/Day Years [...] Sign Reading Time Taken Comments Blood Pressure 95/64 06/20/2023 10:32 AM CDT Pulse 57 06/20/2023 10:32 AM CDT Temperature - - Respiratory Rate - - Oxygen Saturation - - Inhaled Oxygen Concentration - - Weight 97.1 kg (214 lb) 06/20/2023 9:49 AM CDT Height - - Body Mass Index 36.73 05/15/2023 9:03 AM CDT documented in this encounter Progress Notes * Earnestine Jennings MD - 06/20/2023 9:00 AM CDT [facility] PROCEDURE VISIT HISTORY OF PRESENT ILLNESS Erika Snowden is a 23 y.o. who presents today for IUD insertion. Outreach Counselor not needed for this visit. Of note, Erika arrived 18 minutes late for this scheduled visit. Most recently had Nexplanon removed on 04/30/2023 and has not been using anything for control.She had unprotected intercourse on 06/15 and took OTC Plan B on 06/16. She read that it might not be as effective with her BMI and became nervous. She does not want to be . She is interested ingetting an IUD placed for emergency contraception and also for long-term control. OBGYN HISTORY OB History Para Term AB Living 0 0 0 0 0 0 SAB IAB Ectopic Multiple Live Births 0 0 0 0 0 Menses: Patient's last menstrual period was 06/02/2023 (approximate). Contraception: Current: nothing Sexually Active: Yes Male partners STIs: history of Chlamydia 2021 Cervical Cancer Screening: Last 06/2020 NILM No history of abnormal Paps HPV vaccine? Full series received Breast Health: MMG not yet indicated (to start @ 40) Family Cancer History: Not discussed today PROCEDURE NOTE - IUD INSERTION BP 95/64 (BP Location: Right Arm, BP Cuff Size: Regular - Long) Pulse (!) 57 Wt 214 lb (97.1 kg) LMP 06/02/2023 (Approximate) BMI 36.73 kg/m?? A preprocedure test was was performed and was negative. The IUD insertion procedure was explained. Specific risks discussed included infection, spotting, uterine perforation, and ectopic . We reviewed the risk of possible early and the risk of with an IUD in place, reviewed the limitations of IUD for emergency contraception.Written consent was obtained. PROCEDURE DESCRIPTION The patient was placed in dorsal lithotomy position. Bimanual exam showed the uterus to be in anteverted position. A sterile Franky speculum was inserted into the vagina and the cervix was brought into view. Pap smear and swab for STI testing were collected. A single-toothed tenaculum was placed on the anterior lip of the cervix. A sterile uterine sound was used to sound the uterus to a depth of 7cm. The Mirena IUD was inserted to the fundus using the prepackaged cyber defense analyst. The strings were trimmed to a length of 2.5cm from the external os. The single-toothed tenaculum was removed and hemostasis was achieved using pressure. All instruments were removed from the vagina. The patient tolerated the procedure well. Lot #[id number] Added to problem list. ASSESSMENT & PLAN Erika is a 23 y.o. now s/p IUD insertion. #. IUD Insertion: - Mirena IUD inserted as above. - Recommend return visit in 2wks for IUD string check and repeat test. - We discussed how with an IUD in place would be managed, Erika confirms if she were to become she would desire termination. #. Routine HOME IMPROVEMENT CONTRACTOR: - Cervical Cancer Screening: collected today - STI Screening: comprehensive screening ordered today - Contraception: see above - Breast Health: MMG not yet indicated (to start @ 40) - Immunizations: [x]HPV, [ ]Influenza, [x]COVID Earnestine Jennings MD Obstetrics & Gynecology 06/20/2023 10:40 AM documented in this encounter Plan of Treatment Not on file documented as of this encounter Procedures Procedure Name Priority Date/Time Associated Diagnosis Comments TRICHOMONAS VAGINALIS, MOLECULAR DETECTION, ENDOCERVIX/VAGINA (14 YEARS AND OLDER) Routine 06/20/2023 10:56 AM CDT Routine screening for STI (sexually transmitted infection) PAP TEST Routine 06/20/2023 10:56 AM CDT Screening for cervical cancer CHLAMYDIA & GC (14 YEARS & OLDER) Routine 06/20/2023 10:56 AM CDT Routine screening for STI (sexually transmitted infection) documented in this encounter Results * HIV 1/2 Ag/Ab 4th Generation (07/01/2023 12:25 PM CDT) HIV 1/2 Antigen/Antib kaylene (4th generation) Negative (Non Reactive) Negative (Non Reactive) 07/01/2023 8:24 PM CDT [facility] Comment:HIV-1 p24 Antigen an d HIV-1/HIV-2 Antibody not detected Blood Venipuncture / Unknown 07/01/2023 12:25 PM CDT 07/01/2023 12:40 PM CDT Earnestine Jennings MD LAB_[address] [facility] de Phone Number [facility] [address] [place] [address] * Hepatitis C Antibody, with Reflex (07/01/2023 12:25 PM CDT) Pathologist [facility] Hepatitis C Antibody Negative (Non Reactive) Negative (Non Reactive) 07/01/2023 8:24 PM CDT [facility] Comment:Antibodies to HCV no t detected. Does not exclude the possiblity of exposure to HCV. Blood Venipuncture / Unknown 07/01/2023 12:25 PM CDT 07/01/2023 12:40 PM CDT Earnestine Jennings MD LAB_1 Performing Organization [address] [facility] de Phone Number [facility] [address] [place] [address] * Hepatitis B Surface Antigen (07/01/2023 12:25 PM CDT) Hepatitis B Surface Antigen Negative (Non Reactive) Negative (Non Reactive) 07/01/2023 8:40 PM CDT [facility] Blood Venipuncture / Unknown 07/01/2023 12:25 PM CDT 07/01/2023 12:40 PM CDT Earnestine Jennings MD LAB_1 Performing Organization [address] [facility] de Phone Number [facility] [address] * RPR with Reflex to Titer (07/01/2023 12:25 PM CDT) Pathologist [facility] RAPID PLASMA REAGIN (RPR) Non Reactive Non Reactive 07/03/2023 10:02 AM CDT [facility] Comment: Rapid Plasma Reagin screening test is Non-Reactive. No further reflex testing is required. Performed By: [facility] [address] [place] [address] Nailing Machine Feeder: Colten Hunt MD, PhD CLIA Number: [id number] Blood Venipuncture / Unknown 07/01/2023 12:25 PM CDT 07/01/2023 12:40 PM CDT Earnestine Jennings MD LAB_[address] Per[address] [facility] de Phone Number [facility] [address] [place], [place] [address] [place] [address] * PAP Test (06/20/2023 10:56 AM CDT) Pathologist [facility] Case Report Pap ? Case: [id number] ? Authorizing Provider: ??Earnestine Jennings MD ? Collected: ? 06/20/2023 1056 ? Ordering Location: ? [facility] ? Received: ?06/20/2023 1113 ? Services-PERSONNEL SCHEDULER ? First Screen: ?Barb Robin ? Specimen: ?Pap Test, Routine, Cervix/Endocervix ? 07/09/2023 2:00 PM CDT [facility] Pap Specimen Adequacy Satisfactory for evaluation, endocervical/mark sformation zone component present. 07/09/2023 2:00 PM CDT [facility] Pap Interpretation (NILM) Negative for intraepithelial lesion or malignancy. 07/09/2023 2:00 PM CDT [facility] Pap Disclaimer The Pap test is a screening test to aid in the detection of cervical and vaginal cancers and their precursor lesions. It is not a diagnostic procedure and should not be used as the sole means of detecting malignancy. Both false-positive and false-negative results may occur. 07/09/2023 2:00 PM CDT [facility] Gross Description The specimen is received in SurePath fixative and properly labeled. 1 Pap-stained SurePath slide is prepared. 07/09/2023 2:00 PM CDT [facility] Embedded Images 2:00 PM CDT [facility] Other Specimen Type ENTIRE ENDOCERVIX / Unknown 06/20/2023 10:56 AM CDT 06/20/2023 11:13 AM CDT Comment:LMP: Patient's last menstrual period was 06/02/2023 (approximate). Earnestine Jennings MD LAB PATHOLOGY [facility] [address] * Chlamydia & GC (14 Years and Older): Vagina (06/20/2023 10:56 AM CDT) [facility] Chlamydia Trachomatis STD Not Detected Not Detected 06/21/2023 12:40 PM CDT [facility] N. gonorrhoeae STD Not Detected Not Detected 06/21/2023 12:40 PM CDT [facility] Swab STD SPECIMEN FROM VAGINA / Unknown Non-blood Collection / Unknown 06/20/2023 10:56 AM CDT 06/20/2023 11:14 AM CDT [facility] - 06/21/2023 12:40 PM CDT Test performed by Entry Level Sales Associate Mediated Amplification (TMA). Earnestine Jennings MD LAB_1 Performing Organization [address] [facility] Co de Phone Number [facility] [address] * Trichomonas vaginalis, Molecular Detection, Endocervix/Vagina (14 years and older) (06/20/2023 10:56 AM CDT) [facility] Trich Vaginalis Amplified Not Detected Not Detected 06/21/2023 12:40 PM CDT [facility] Swab STD SPECIMEN FROM VAGINA / Unknown Non-blood Collection / Unknown 06/20/2023 10:56 AM CDT 06/20/2023 11:14 AM CDT [facility] - 06/21/2023 12:40 PM CDT Test performed by Entry Level Sales Associate Mediated Amplification (TMA). Earnestine Jennings MD LAB_1 Performing Organization [address] [facility] Co de Phone Number [facility] [address] * Test (Urine) (06/20/2023 9:24 AM CDT) Pathologist [facility] HCG, Urine Negative Negative 06/20/2023 9:40 AM CDT [facility] Urine Non-blood Collection / Unknown 06/20/2023 9:24 AM CDT 06/20/2023 9:24 AM CDT Earnestine Jennings MD LAB_1 [facility] [address] [id number], [facility] documented in this encounter Visit Diagnoses Diagnosis Pre-procedure lab exam- Primary Pre-procedural laboratory examination Screening for cervical cancer Screening for malignant neoplasm of the cervix Routine screening for STI (sexually transmitted infection) Screening examination for venereal disease Encounter for insertion of intrauterine contraceptive device documented in this encounter Administered Medications Inactive Administered Medications - up to 3 most recent administrations Medication Order MAR Action Action Date Dose Rate Site levonorgestrel (MIRENA) 20 MCG/DAY intrauterine device 1 Each 1 Each, Intrauterine, ONCE, On Ariane 06/20/23 at 1030, For 1 dose, This medication is a Category X medication. Therefore, it should not be given to patients. The patient's status must be verified before administering this medication. Administration: Single glove Given 06/20/2023 10:55 AM CDT 1 Each documented in this encounter Care Teams Bale Sewer Relationship Specialty Start Date End Date Richard Ramachandran APRN, ADRIANNE [address] [place] [address] PCP - General Nurse Practitioner 05/10/23 documented as of this encounter
--- OUTSIDE RECORDS SUMMARY | 2023-09-20 10:54 | XMS_ITS | Encounter Summary ---
Author Organization [employer] Address [address] [place] [address] Care Team Providers Care Fast Food Assistant Restaurant Manager Name Role Phone Richard Ramachandran APRN, ACCREDITED LEGAL SECRETARY Primary Care Provide r Reason for Visit * Reason Comments Refill Encounter Details Date Type Department Care Team (Late st Contact Info) Description 05/19/2023 Refill [facility] [address] [facility] [place] [address] Amelia Britton MD [address] [place] [address] Refill Social History Tobacco Use Types Packs/Day [...] You are due for an Appt. Call [phone] to schedule appt. Routing to [place] Team: [...] disorder documented in this encounter Care Teams Fast Food Assistant Restaurant Manager Relationship Specialty Start Date End Date Richard Ramachandran APRN, ACCREDITED LEGAL SECRETARY [address] [place] [address] PCP - General Nurse Practitioner 05/10/23 documented as of this encounter
--- OUTSIDE RECORDS SUMMARY | 2023-09-20 10:54 | XMS_ITS | Encounter Summary ---
Author Organization [employer] Address [address] [place] [address] Care Team Providers Care Proofer Black And White Name Role Phone iRchard Ramachandran APRN, DERMATOLOGIST MANAGING PARTNER Primary Care Provide r Reason for Visit * Reason Comments Refill Encounter Details Date Type Department Care Team (Late st Contact Info) Description 06/09/2023 Refill [facility] [address] [facility] [place] [address] Amelia Britton MD [address] [place] [address] Refill Social History Tobacco Use Types Packs/Day [...] as of this encounter Nursing Notes * Malu Nelson RN - 06/14/2023 9:11 AM CDT Refilled Abilify 10 mg per standing order. Follow up appt scheduled for 07/02/2023. Requested withinappropriate time frame. Malu Nelson RN documented in this encounter Plan of Treatment Not on file documented as of this encounter Visit Diagnoses Diagnosis Mild mixed bipolar II disorder ([facility]) Other bipolar disorders documented in this encounter Care Teams Proofer Black And White Relationship Specialty Start Date End Date Richard Ramachandran APRN, DERMATOLOGIST MANAGING PARTNER [address] [place] [address] PCP - General Nurse Practitioner 05/10/23 documented as of this encounter
[2023-09-20 10:55] LABS: Slide Review Reflex No
[2023-09-20 11:07] LABS: Albumin* 4.5 g/dL (3.3-5.0); Chloride* 108 mmol/L (96-114)
[2023-09-20 11:08] LABS: Sodium* 137 mmol/L (135-149)
[2023-09-20 11:10] LABS: Creatinine* 0.7 mg/dL (0.5-1.5); Est. Creatinine Clearance* 107.01; Estimated Glomerular Filt Rate 124 ml/min
[2023-09-20 11:11] LABS: Alanine Aminotransferase* 22 U/L (4-35); Alkaline Phosphatase* 68 U/L (40-150); Anion Gap 8 mEq/L (7-15); Aspartate Amino Transferase* 28 U/L (12-35); Bilirubin Total* 0.7 mg/dL (0.1-1.5); Blood Urea Nitrogen* 7 mg/dL (5-24); Calcium* 9.1 mg/dL (8.4-10.6); Carbon Dioxide* 21 mmol/L (20-32); Glucose* 97 mg/dL (60-115); Magnesium* 2.2 mg/dL (1.5-2.6); Total Protein* 7.2 g/dL (6.0-8.3)
[2023-09-20 11:13] LABS: D Dimer Quantitative* 0.15 ug/ml (0.00-0.50)
[2023-09-20 11:23] LABS: C Reactive Protein* < 0.5 mg/dL (0.5-1.0); NT Pro B Type NatriureticPept* 105 pg/mL; Troponin I* < 0.01 ng/mL (0.01-0.04)
[2023-09-20 11:32] LABS: PCR FLU A Negative PCR FLU A (Negative); PCR FLU B Negative PCR FLU B (Negative); PCR RSV Negative PCR RSV (Negative); SARS PCR* Negative SARS-CoV-2 (Negative)
[2023-09-20 11:44] LABS: Appearance Urine Clear (Clear); Bilirubin Urine Negative (Negative); Blood Urine Trace-intact (Negative); Color Urine Yellow (Yellow); Glucose Urine Negative (Negative); Ketones Urine Negative (Negative); Leukocyte Esterase Urine Negative (Negative); Nitrite Urine Negative (Negative); Protein Urine Negative (Negative); Specific Gravity Urine 1.015 (1.000-1.030); Urobilinogen Urine 0.2 (0.2-1.0)
[2023-09-20 11:47] LABS: Ur HCG Qualitative* Negative (Negative)
[2023-09-20 11:53] LABS: RBC Urine 0-2 (0-2)
[2023-09-20 11:54] LABS: Bacteria Urine Few
== END 2023-09-20 12:54 | disposition home or self-care (01) ==
PROVIDERS: Emergency Provider Family Medicine
DX: R42 Dizziness and giddiness (principal)
CPT/HCPCS: 36415; 80053; 81001; 81025; 82803; 83605; 83735; 83880; 84484; 85025; 85379; 86140; 87086; 87631; 93005; 94761; 96360; 96361; 99284; J7030